=== PATIENT | male | born 1950 | race Caucasian/White ===

== ENCOUNTER → 2018-02-28 15:07 | Outpatient (CLI) | payer MEDICARE, OTHER, SELFPAY ==
--- NOTE | 2018-02-28 15:12 | DI.RAD.S_ITS ---
PROCEDURE: XR ACUTE ABDOMEN SERIES INDICATIONS: constipation/LAB TECHNIQUE: One view chest and two views of the abdomen were acquired. COMPARISON: None. FINDINGS: Surgical changes and devices: None. Chest: Lungs are clear. Heart size is normal. No pleural effusions. No pneumoperitoneum. Abdomen: Bowel gas pattern is abnormal somewhat deviated from the expected course through the lower right abdomen and upper right pelvis. No suspicious calcifications. Visualized solid organ contours appear normal. Bones and soft tissues: No suspicious bony lesions. What may be an ostomy site or hernia overlies the lateral soft tissues of the right lower abdomen. There also may be a mass deep to that area in the right lower quadrant measuring up to 15 cm craniocaudad and 10.6 cm transverse displacing bowel loops peripherally. IMPRESSION: Unusual morphology of the bowel gas pattern right lower quadrant, in a distribution that raises concern for whether a large right lower abdominal/pelvic mass could be present. There also may be an ostomy or some form of body wall hernia at the lateral border of this area. Please correlate clinically, followup by CT scanning may become necessary. Dictated by: Samson Campo M.D. on 02/28/2018 at 16:12 Approved by: Samson Campo M.D. on 02/28/2018 at 16:15
[2018-02-28 15:58] LABS: Add Manual Diff / Slide Review NO; Basophils Percent Auto 0.9 % (0-2); Eosinophils Percent Auto 1.9 % (2-4); Lymphocytes Percent Auto 20.6 % (25-40); Mean Corpuscular HGB Conc 34.3 % (30-36); Mean Corpuscular Hemoglobin 29.5 PG (26-34); Mean Corpuscular Volume 85.9 fL (80-100); Monocytes Percent Auto 8.8 % (3-14); Neutrophils Absolute Auto 3500 /uL (3000-5900); Neutrophils Percent Auto 67.8 % (50-75); Platelet Count 173 X10^3/uL (150-400); Red Blood Cell Count 4.77 X10^6/uL (4.5-5.9); Red Cell Distribution Width 13.9 % (11.6-14.8); White Blood Cell Count 5.2 X10^3/uL (4.5-11.0)
[2018-02-28 16:41] LABS: Alanine Aminotransferase 36 IU/L (21-72); Albumin 4.1 g/dL (3.5-5.0); Albumin Globulin Ratio 1.8 (1.0-2.8); Alkaline Phosphatase 51 U/L (38-126); Aspartate Aminotransferase 38 IU/L (17-59); Bilirubin Total 0.7 mg/dL (0.2-1.3); Blood Urea Nitrogen 20 mg/dL (9-20); Calcium 9.1 mg/dL (8.4-10.2); Carbon Dioxide 28 mmol/L (22-32); Chloride 101 mmol/L (98-107); Cholesterol 248 mg/dL (140-199); Estimated Glomerular Filt Rate > 60.0 mL/min (>60); Globulin 2.3 g/dL (1.7-4.1); Glucose 90 mg/dL (80-110); HDL Cholesterol 62 mg/dL (40-60); HEMOLYSIS < 15 (0-50); LDL Cholesterol Calculated 168 mg/dL (<100); Potassium 3.9 mmol/L (3.4-5.1); Sodium 140 mmol/L (137-145); Total Protein 6.4 g/dL (6.3-8.2); Triglycerides 90 mg/dL (35-150)
[2018-02-28 17:07] LABS: Thyroid Stimulating Hormone 0.91 uIU/mL (0.47-4.68)
== END ==
PROVIDERS: PCP Family Medicine; Visit Provider Internal Medicine
DX: K59.00 Constipation, unspecified (principal); E87.6 Hypokalemia; E78.00 Pure hypercholesterolemia, unspecified
CPT/HCPCS: 36415; 74022; 80053; 80061; 84443; 85025

== ENCOUNTER → 2018-03-01 16:31 | Outpatient (CLI) | payer MEDICARE, OTHER, SELFPAY ==
--- NOTE | 2018-03-01 16:35 | DI.CT.S_ITS ---
PROCEDURE: CT ABDOMEN PELVIS W CON INDICATIONS: abnormal xray TECHNIQUE: After the administration of oral and intravenous contrast, 5 mm thick sections acquired from the diaphragms to the symphysis. 5 mm thick coronal and sagittal reformats were performed. For radiation dose reduction, the following was used: automated exposure control, adjustment of mA and/or kV according to patient size. COMPARISON: [facility], , XR ACUTE ABDOMEN SERIES, 02/28/2018, 15:03. FINDINGS: Image quality: Excellent. ABDOMEN: Lung bases: Lung bases are clear. Heart size is normal. Solid organs: Liver is normal in size and enhancement. Gallbladder demonstrates multiple calculi within its lumen Biliary system is non-dilated. Pancreas enhances normally. Spleen is normal in size and enhancement. No adrenal nodules. Multiple right renal cysts are present, largest of which is exophytic protruding anteroinferiorly from the inferior pole right kidney measuring 16 cm diameter. Kidneys are otherwise normal in size and enhancement, without hydronephrosis. Peritoneum and bowel: Stomach, small bowel, and colon loops are normal in caliber and wall thickness. Multiple fluid filled loops of small bowel are present within the pelvis. No free fluid or air. Normal appendix. Nodes and vessels: No retroperitoneal or mesenteric adenopathy. Aorta and inferior vena cava are normal in caliber. Miscellaneous: No ventral hernias. PELVIS: Genitourinary: Bladder wall thickness is normal. Miscellaneous: No inguinal hernias or adenopathy. Bones: No suspicious bony lesions. No vertebral body compression fractures. IMPRESSION: 1. Multiple fluid filled loops of small bowel, possibly indicating gastroenteritis. 2. Normal appendix. 3. Large right renal cyst. Dictated by: Miya Keith M.D. on 03/01/2018 at 18:28 Approved by: Miya Keith M.D. on 03/01/2018 at 18:30
== END ==
PROVIDERS: PCP Family Medicine; Visit Provider Internal Medicine
DX: K59.00 Constipation, unspecified (principal); R93.8 Abnormal findings on diagnostic imaging of other specified body structures; N28.1 Cyst of kidney, acquired
CPT/HCPCS: 74177; Q9967

== ENCOUNTER → 2018-12-23 09:47 | Outpatient (CLI) | payer MEDICARE, OTHER, SELFPAY ==
[2018-12-23 11:17] LABS: Prostate Specific Antigen 1.59 ng/mL (0.10-4.00)
== END ==
PROVIDERS: PCP Family Medicine; Visit Provider Urology
DX: R97.20 Elevated prostate specific antigen [PSA] (principal)
CPT/HCPCS: 36415; 84153

== ENCOUNTER → 2019-01-20 07:32 | Outpatient (CLI) | payer MEDICARE, OTHER, SELFPAY ==
[2019-01-20 08:28] LABS: Cholesterol 283 mg/dL (140-199); Creatinine Urine Random 91.5 mg/dL; Gamma Glutamyl Transpeptidase 43 U/L (15-73); HDL Cholesterol 50 mg/dL (40-60); LDL Cholesterol Calculated 210 mg/dL (<100); Triglycerides 117 mg/dL (35-150)
[2019-01-20 08:32] LABS: High Sensitivity CRP - Cardiac 0.5 mg/L (1.0-3.0)
[2019-01-20 08:34] LABS: Microalbumi Creatinin Ratio Ur 113.6 ug/mg CR (<30); Microalbumin Urine Random 10.4 mg/dL (0-1.6)
[2019-01-20 08:44] LABS: Vitamin D 25 Hydroxy (D3) 57.5 ng/mL (30.0-100.0)
[2019-01-20 10:47] LABS: Thyroid Stimulating Hormone 3.36 uIU/mL (0.47-4.68)
[2019-01-26 16:58] LABS: Triiodothyronine T3 Reverse 28 ng/dL (8-25)
== END ==
PROVIDERS: PCP Family Medicine; Visit Provider Family Medicine
DX: E03.9 Hypothyroidism, unspecified (principal); I10 Essential (primary) hypertension; E87.6 Hypokalemia; Z12.5 Encounter for screening for malignant neoplasm of prostate; Z13.220 Encounter for screening for lipoid disorders
CPT/HCPCS: 36415; 80061; 82043; 82306; 82570; 82977; 84443; 84481; 84482; 86140

== ENCOUNTER → 2019-06-25 14:58 | Outpatient (CLI) | payer MEDICARE, OTHER, SELFPAY ==
--- NOTE | 2019-06-25 15:01 | DI.RAD.S_ITS ---
PROCEDURE: XR ANKLE LT MIN 3V INDICATIONS: ankle and knee pain TECHNIQUE: 3 views of the ankle were acquired. COMPARISON: None. FINDINGS: Bones: No acute fractures or dislocations. Moderate degenerative changes of the left tibiotalar joint. Mild dorsal left midfoot degenerative change. Ankle mortise is normally aligned. No suspicious bony lesions. Soft tissues: No tibiotalar joint effusion. Achilles tendon appears normal. IMPRESSION: Left ankle without acute osseous abnormalities. Moderate tibiotalar osteoarthrosis. Mild dorsal midfoot degenerative change. Dictated by: Zach De Santiago M.D. on 06/25/2019 at 16:05 Approved by: Zach De Santiago M.D. on 06/25/2019 at 16:07
--- NOTE | 2019-06-25 15:01 | DI.RAD.S_ITS ---
PROCEDURE: XR KNEE LT 3V INDICATIONS: ankle and knee pain TECHNIQUE: 3 views of the knee were acquired. COMPARISON: None. FINDINGS: Bones: No fractures or dislocations. Mild tricompartmental degenerative changes of the left knee. No suspicious bony lesions. Soft tissues: No joint effusion. No suspicious soft tissue calcifications. IMPRESSION: Left knee without acute radiographic abnormalities. Mild tricompartmental osteoarthrosis of the left knee. Dictated by: Zach De Santiago M.D. on 06/25/2019 at 16:07 Approved by: Zach De Santiago M.D. on 06/25/2019 at 16:08
== END ==
PROVIDERS: PCP Family Medicine; Visit Provider Family Medicine
DX: M25.572 Pain in left ankle and joints of left foot (principal); M25.562 Pain in left knee; M19.072 Primary osteoarthritis, left ankle and foot; M17.12 Unilateral primary osteoarthritis, left knee
CPT/HCPCS: 73562; 73610

== ENCOUNTER → 2019-08-27 13:01 | Outpatient (CLI) | payer MEDICARE, OTHER, SELFPAY ==
--- NOTE | 2019-08-27 13:06 | DI.RAD.S_ITS ---
PROCEDURE: XR FINGER LT MIN 2V INDICATIONS: finger nodule TECHNIQUE: AP hand, 2 views of the third finger(s) acquired. COMPARISON: None. FINDINGS: Bones: No fractures or dislocations. No suspicious bony lesions. Soft tissues: No suspicious soft tissue calcifications. IMPRESSION: Menisci mild to moderate degree of distal interphalangeal degenerative osteoarthritic change including dorsal osteophytic spurring from the base of the third distal phalanx. This is the presumed source of reported soft tissue nodule over the dorsum of the distal interphalangeal joint third digit. Dictated by: Samson Campo M.D. on 08/27/2019 at 13:28 Approved by: Samson Campo M.D. on 08/27/2019 at 13:29
== END ==
PROVIDERS: PCP Family Medicine; Visit Provider Family Medicine
DX: R22.32 Localized swelling, mass and lump, left upper limb (principal)
CPT/HCPCS: 73140

== ENCOUNTER → 2019-12-10 13:39 | Outpatient (CLI) | payer MEDICARE, OTHER, SELFPAY ==
--- NOTE | 2019-12-10 | DI.US.S_ITS ---
PROCEDURE: US ABDOMEN COMPLETE INDICATIONS: CHOLESTEROLOSIS OF GB, ELEVATED LFT'S TECHNIQUE: Real-time scanning was performed of the abdominal and retroperitoneal organs, with image documentation. COMPARISON: [facility], CT, CT ABDOMEN PELVIS W CON, 03/01/2018, 17:25. FINDINGS: Liver: Liver is normal in size and homogeneous in echotexture. Gallbladder: Multiple gallbladder polyps, largest measuring 1.3 cm. Biliary ducts: Intrahepatic bile ducts are non-dilated. Extrahepatic bile duct caliber measures 7.7 mm. Normal is 6-7 mm or less in diameter, or 10 mm or less post-cholecystectomy. Pancreas: Not well-visualized. Spleen: Spleen is normal in size and homogeneous in echotexture. Kidneys: Kidneys are normal in size and echotexture. Right kidney measures 12.6 cm long; left kidney measures 11.2 cm long. No hydronephrosis or nephrolithiasis. No solid masses. Multiple bilateral renal cysts, largest of which is on the right measuring up to 13.1 cm. Aorta: Mild aneurysmal dilatation the proximal aorta measured 3.2 cm but Iliacs: Proximal common iliac arteries are normal in caliber at less than 2.5 cm. IVC: Intrahepatic inferior vena cava is patent. Miscellaneous: No free abdominal fluid. IMPRESSION: 1. Multiple gallbladder polyps the largest measuring up to 1.3 cm. Surgical consultation is recommended. 2. Mild aneurysmal dilatation the proximal aorta measuring up to 3.2 cm which appears similar to prior CT scan. 3 year followup ultrasound recommended. 3. Multiple renal cysts, largest measuring up to 13.1 cm on the right. Dictated by: Yao Arizmendi [facility] Interpreted: Denis Mata MD on 12/10/2019 at 16:43 Approved by: Denis Mata M.D. on 12/10/2019 at 17:01
== END ==
PROVIDERS: PCP Family Medicine; Referring Provider Physician Assistant; Visit Provider Physician Assistant
DX: K82.4 Cholesterolosis of gallbladder (principal); I71.4 Abdominal aortic aneurysm, without rupture; N28.1 Cyst of kidney, acquired; R79.89 Other specified abnormal findings of blood chemistry
CPT/HCPCS: 76700

== ENCOUNTER → 2020-04-18 09:07 | Outpatient (CLI) | payer MEDICARE, OTHER, SELFPAY ==
[2020-04-19 14:01] LABS: COVID19 Sendout Not Detected (Not Detect)
== END ==
PROVIDERS: PCP Family Medicine; Visit Provider Physician Assistant
DX: Z01.812 Encounter for preprocedural laboratory examination (principal)
CPT/HCPCS: 87635

== ENCOUNTER → 2020-07-07 09:10 | Outpatient (CLI) | payer MEDICARE, OTHER, SELFPAY ==
[2020-07-07 14:57] LABS: Clostridium Difficile Tox PCR Negative for C. diff
== END ==
PROVIDERS: PCP Family Medicine; Referring Provider Family Medicine; Visit Provider Family Medicine
DX: R19.7 Diarrhea, unspecified (principal)
CPT/HCPCS: 87045; 87177; 87493; 87899

== ENCOUNTER → 2020-08-23 10:13 | Outpatient (CLI) | payer MEDICARE, OTHER, SELFPAY ==
[2020-08-23 11:54] LABS: COVID19 -Nasal RAPID Negative (Negative)
== END ==
PROVIDERS: PCP Family Medicine; Visit Provider Physician Assistant
DX: Z11.59 Encounter for screening for other viral diseases (principal)
CPT/HCPCS: 87635

== ENCOUNTER → 2020-09-20 13:27 | Outpatient (CLI) | payer MEDICARE, OTHER, SELFPAY ==
[2020-09-20 15:28] LABS: COVID19 -Nasal RAPID Negative (Negative)
== END ==
PROVIDERS: PCP Family Medicine; Visit Provider Nurse Practitioner
DX: Z20.828 Contact with and (suspected) exposure to other viral communicable diseases (principal)
CPT/HCPCS: 87635; C9803

== ENCOUNTER → 2020-09-21 14:09 | Outpatient (CLI) | payer MEDICARE, OTHER, SELFPAY ==
[2020-10-02 18:36] LABS: Pancreatic Elastase, Fecal 413 (>200)
== END ==
PROVIDERS: PCP Family Medicine; Referring Provider Physician Assistant; Visit Provider Physician Assistant
DX: K86.1 Other chronic pancreatitis (principal)
CPT/HCPCS: 82656

== ENCOUNTER → 2020-11-11 07:02 | Outpatient (CLI) | payer MEDICARE, OTHER, SELFPAY ==
[2020-11-11 08:26] LABS: Add Manual Diff / Slide Review NO; Basophils Absolute Auto 0 /uL (0-100); Basophils Percent Auto 1.1 % (0-2); Eosinophils Absolute Auto 200 /uL (0-450); Eosinophils Percent Auto 4.3 % (2-4); Hematocrit 41.7 % (41-53); Hemoglobin 13.6 g/dL (13.5-17.5); Lymphocytes Absolute Auto 900 /uL (1100-4500); Lymphocytes Percent Auto 21.4 % (25-40); Mean Corpuscular HGB Conc 32.6 % (30-36); Mean Corpuscular Hemoglobin 28.5 PG (26-34); Mean Corpuscular Volume 87.2 fL (80-100); Monocytes Absolute Auto 400 /uL (0-900); Monocytes Percent Auto 8.6 % (3-14); Neutrophils Absolute Auto 2700 /uL (1500-7000); Neutrophils Percent Auto 64.6 % (50-75); Platelet Count 179 X10^3/uL (150-400); Red Blood Cell Count 4.78 X10^6/uL (4.5-5.9); Red Cell Distribution Width 13.2 % (11.6-14.8); White Blood Cell Count 4.2 X10^3/uL (4.5-11.0)
[2020-11-11 08:56] LABS: Alanine Aminotransferase 22 IU/L (<50); Albumin 4.1 g/dL (3.5-5.0); Albumin Globulin Ratio 1.7 (1.0-2.8); Alkaline Phosphatase 64 U/L (38-126); Aspartate Aminotransferase 33 IU/L (17-59); BUN Creatinine Ratio 18.9 (6-22); Bilirubin Total 0.5 mg/dL (0.2-1.3); Blood Urea Nitrogen 17 mg/dL (9-20); Carbon Dioxide 33 mmol/L (22-32); Chloride 103 mmol/L (98-107); Estimated Glomerular Filt Rate > 60.0 mL/min (>60); Globulin 2.4 g/dL (1.7-4.1); Glucose 91 mg/dL (80-110); HEMOLYSIS < 15 (0-50); Potassium 3.1 mmol/L (3.4-5.1); Sodium 139 mmol/L (137-145); Total Protein 6.5 g/dL (6.3-8.2); Uric Acid 6.4 mg/dL (3.5-8.5)
[2020-11-11 09:00] LABS: High Sensitivity CRP - Cardiac < 0.3 mg/L (1.0-3.0)
[2020-11-11 09:15] LABS: Free T3, Triiodothyronine Free 5.75 pg/mL (2.77-5.27); Free T4, Direct Thyroxine 1.41 ng/dL (0.78-2.19)
[2020-11-11 09:28] LABS: Thyroid Stimulating Hormone 2.19 uIU/mL (0.47-4.68)
[2020-11-12 09:07] LABS: Thyroid Peroxidase Antibodies <9 IU/mL (0-34); Triiodothyronine T3 Total 113 ng/dL (71-180)
[2020-11-12 18:11] LABS: Anti Thyroglobulin Antibody <1.0 IU/mL (0.0-0.9)
[2020-11-19 03:25] LABS: Triiodothyronine T3 Reverse 16.8 ng/dL (9.2-24.1)
[2020-11-22 15:28] LABS: LDL Particle 1789
[2020-11-22 15:29] LABS: LDL-Cholsterol 150
[2020-11-22 15:30] LABS: Cholesterol, Total 225; HDL-Cholesterol 59; Triglycerides 89
[2020-11-22 15:31] LABS: HDL-Particle (Total) 32.1; LDL Size 20.9; Small LDL- Particle 766
== END ==
PROVIDERS: PCP Family Medicine; Referring Provider Family Medicine; Visit Provider Family Medicine
DX: R14.0 Abdominal distension (gaseous) (principal); E78.5 Hyperlipidemia, unspecified; K21.00 Gastro-esophageal reflux disease with esophagitis, without bleeding; E03.9 Hypothyroidism, unspecified; N40.1 Benign prostatic hyperplasia with lower urinary tract symptoms; M25.511 Pain in right shoulder; K64.9 Unspecified hemorrhoids; K22.70 Barrett's esophagus without dysplasia; I10 Essential (primary) hypertension; M41.24 Other idiopathic scoliosis, thoracic region; G47.9 Sleep disorder, unspecified; M10.9 Gout, unspecified
CPT/HCPCS: 36415; 80053; 80061; 83704; 84439; 84443; 84480; 84481; 84482; 84550; 85025; 86140; 86376; 86800

== ENCOUNTER → 2020-12-13 07:24 | Outpatient (CLI) | payer MEDICARE, OTHER, SELFPAY | PROVIDERS: PCP Family Medicine; Referring Provider Family Medicine; Visit Provider Family Medicine | DX: E63.9 Nutritional deficiency, unspecified (principal); E78.5 Hyperlipidemia, unspecified; K21.00 Gastro-esophageal reflux disease with esophagitis, without bleeding; E03.9 Hypothyroidism, unspecified | CPT/HCPCS: 36415; 99001 ==

== ENCOUNTER 2021-07-10 09:49 | Emergency (ER) | payer MEDICARE, OTHER, SELFPAY ==
[2021-07-10] VITALS (43 sets, daily range): BP systolic 137–233; BP diastolic 71–106; PULSE 54–80; RESP 11–29; TEMP 36.2; O2SAT 82–100; BMI 24.3
--- NOTE | 2021-07-10 09:53 | DI.RAD.S_ITS ---
PROCEDURE: XR CHEST 1V INDICATIONS: chest pain TECHNIQUE: One view of the chest was acquired. COMPARISON: [facility], CT, CT CHEST WITHOUT CONTRAST, 04/15/2021, 13:50. FINDINGS: Surgical changes and devices: None. Lungs and pleura: An incomplete inspiratory result is noted, causing a crowded appearance to the lung markings. No focal infiltrates are seen. No pneumothorax or significant pleural effusions are seen. Mediastinum: The cardiac contours are within normal limits. The aorta demonstrates calcification and tortuosity. Bones and chest wall: No suspicious bony lesions. Age-appropriate bony degenerative changes are seen. Overlying soft tissues appear unremarkable. IMPRESSION: Portable chest within normal limits. Dictated by: Roland Evans M.D. on 07/10/2021 at 9:08 Approved by: Roland Evans M.D. on 07/10/2021 at 9:09
--- NOTE | 2021-07-10 10:16 | ED_ITS ---
HPI - Chest Pain General Chief Complaint: Chest Pain Stated Complaint: High bp, tightness in chest Time Seen by Provider: 07/10/21 10:09 Source: patient Mode of arrival: Ambulatory Limitations: no limitations History of Present Illness HPI narrative: Patient is a 71-year-old male here for evaluation of chest discomfort. He states that it started last evening. He did eat some food last evening that he thought potentially caused him to have some reflux. He took some antacids this did not help his symptoms. He states that is not worse with palpation or movement. Describes it as a dull discomfort. No fevers. Related Data Home Medications Medication Instructions Recorded Confirmed ascorbate calcium (vitamin C) 500 500 mg PO BID 07/07/20 07/10/21 mg tablet cholecalciferol (vitamin D3) 250 250 mcg PO QAM 07/07/20 07/10/21 mcg (10,000 unit) capsule glucosamine 750 mg-MSM 60 1 tab PO BID 07/07/20 07/10/21 mg-chondroit 150 mg-hyaluron ac 1 mg tablet amlodipine 10 mg tablet 10 mg PO QAM 07/10/21 07/10/21 dutasteride 0.5 mg capsule 0.5 mg PO QAM 07/10/21 07/10/21 esomeprazole magnesium 20 mg 20 mg PO QAM 07/10/21 07/10/21 capsule,delayed release losartan 50 mg tablet 50 mg PO QAM 07/10/21 07/10/21 potassium chloride 10 mEq 10 meq PO QAM 07/10/21 07/10/21 tablet,extended release tamsulosin 0.4 mg capsule (Flomax) 0.4 mg PO QAM 07/10/21 07/10/21 Previous Rx's Medication Instructions Recorded indomethacin 50 mg capsule 50 mg PO TIDP PRN #30 cap 10/26/20 Allergies Allergy/AdvReac Type Severity Reaction Status Date / Time latex Allergy Rash Verified 07/10/21 10:01 Review of Systems Constitutional Constitutional: Denies headache(s) ENT Ears, Nose, Mouth, and Throat: Denies headache(s) Cardiovascular Cardiovascular: Reports as per HPI and Reports system reviewed and no additional complaints, except as documented Respiratory Respiratory: Reports as per HPI and Reports system reviewed and no additional complaints, except as documented Gastrointestinal Gastrointestinal: Reports as per HPI and Reports system reviewed and no additional complaints, except as documented Musculoskeletal Musculoskeletal: Reports system reviewed and no additional complaints, except as documented Integumentary/Breasts Skin/Breast: Reports system reviewed and no additional complaints, except as documented Neurologic Neurologic: Denies headache(s) Hematologic/Lymphatic On Anticoagulants: No Patient History Medical History Abdominal bloating Actinic keratoses Adverse reaction to antibiotic Aortic aneurysm, abdominal Aortic regurgitation (1994) Benign prostatic hyperplasia BRBPR (bright red blood per rectum) Cardiac arrhythmia Cerumen impaction Cervical somatic dysfunction Chronic pain of left ankle Chronic right shoulder pain Chronic thoracic back pain Constipation Cranial somatic dysfunction Elevated PSA Fecal incontinence Frequent loose stools Gallbladder polyp Gluten enteropathy Gout Hiatal hernia Hypothyroidism Low testosterone Lumbar region somatic dysfunction Onychomycosis Other stressful life events affecting family and household Pancreatitis Pelvic somatic dysfunction Renal cyst Sacral region somatic dysfunction Scoliosis Scoliosis of thoracic spine Segmental and somatic dysfunction of abdomen and other regions Segmental and somatic dysfunction of rib cage Segmental and somatic dysfunction of upper extremity Shoulder pain Skin rash Sleep disorder Somatic dysfunction of lower extremity Stiff neck Stress due to illness of family member Thoracic region somatic dysfunction Surgical History Anesthesia Ankle fracture (1978) History of eyelid surgery (2016) History of pancreatic surgery (1994) Family History Brother Age: 65 No problems noted. Father Heart disease Mental health problem Smoker Alcoholic Brother No problems noted. Grandfather Cancer Grandmother No problems noted. Mother No problems noted. Grandfather Fall from roof Grandmother Cancer Sister Overweight Sister No problems noted. Social History marital status: number of children: 0 household members: none lives independently: Yes caregiver/support person: No housing: house Smoking Status: Never smoker second hand exposure: No alcohol intake: never substance use type: does not use Smoking Status: Never smoker alcohol intake frequency: 0-2 drinks per day Substance Use Type: does not use Exam Initial Vital Signs Initial Vital Signs: Vital Signs Temperature 97.1 F L 07/10/21 09:50 Pulse Rate 66 07/10/21 09:50 Respiratory Rate 18 07/10/21 09:50 Blood Pressure 190/106 H 07/10/21 09:50 Pulse Oximetry 100 07/10/21 09:50 Const General: cooperative and healthy appearing [facility] Head: normal to inspection and normocephalic Chest Chest: No crepitus and No tenderness Resp Effort & Inspection: normal respiratory effort Auscultation: clear to auscultation bilaterally Cardio Rate: regular rate Rhythm: regular rhythm GI Inspection: normal to inspection Neuro General: patient alert, patient awake, patient oriented x3 and moves all extremities Extrem General: normal to inspection and capillary refill normal Course Orders Ordered: ED Orders 07/10/21 09:53 XR chest 1V Stat EKG-12 Lead Stat 07/10/21 10:15 Complete Blood Count AUTO DIFF Stat Comprehensive Metabolic Panel Stat Lipase Stat Partial Thromboplastin Time Stat Prothrombin Time INR Stat Troponin & CK Cardiac Panel Stat 07/10/21 11:11 COVID19 - ADMIT ([employer] swab/PCR) Stat 07/10/21 13:25 Troponin I Stat 07/10/21 17:01 PTT [Partial Thromboplastin Time] Q6H Troponin I Stat 07/11/21 00:45 PTT [Partial Thromboplastin Time] Q6H 07/11/21 06:45 PTT [Partial Thromboplastin Time] Q6H 07/11/21 12:45 PTT [Partial Thromboplastin Time] Q6H Acetaminophen (Acetaminophen 325 Mg Tablet) 650 mg PO Q6HR PRN PRN Reason: Headache Stop: 07/12/21 00:00 Heparin Sodium/Dextrose (Heparin Drip) 25,000 unit in 500 mls @ 17.418 mls/hr IV CONT RUPERT; Protocol Last Admin: 07/10/21 11:19 Dose: 12 units/kg/hr, 17.418 mls/hr Documented by: VAL Nitroglycerin (Nitroglycerin) 50 mg in 250 mls @ 1.5 mls/hr IV TITRATE RUPERT; Protocol Last Titration: 07/10/21 15:30 Dose: 7.5 mcg/min, 2.25 mls/hr Documented by: Admin: 07/10/21 12:45 Dose: 5 mcg/min, 1.5 mls/hr Documented by: BLADIMIR Discontinued Medications Aspirin (Aspirin 81 Mg Chew Tab) 324 mg PO NOW ONE Stop: 07/10/21 11:00 Last Admin: 07/10/21 11:04 Dose: 324 mg Documented by: VAL Heparin Sodium (Porcine) (Heparin 5,000 Unit/Ml Vial) 4,000 unit IV NOW ONE Stop: 07/10/21 11:03 Last Admin: 07/10/21 11:19 Dose: 4,000 unit Documented by: VAL Metoprolol Tartrate (Metoprolol Tartrate 5 Mg/5 Ml Inj) 5 mg IV NOW ONE Stop: 07/10/21 12:21 Last Admin: 07/10/21 12:34 Dose: 5 mg Documented by: BLADIMIR Nitroglycerin (Nitroglycerin 0.4 Mg Sl Tab) 0.4 mg SL [id number] PRN PRN Reason: Chest Pain Last Admin: 07/10/21 11:34 Dose: 0.4 mg Documented by: Admin: 07/10/21 11:18 Dose: 0.4 mg Documented by: Admin: 07/10/21 11:05 Dose: 0.4 mg Documented by: VAL Vital Signs Vital signs: Vital Signs - 8 hr 07/10/21 10:15 07/10/21 10:30 07/10/21 10:45 Pulse Rate 65 80 62 Respiratory Rate 22 22 15 Blood Pressure 161/94 H 233/96 H Pulse Oximetry 99 97 07/10/21 10:46 07/10/21 11:00 07/10/21 11:05 Pulse Rate 63 61 68 Respiratory Rate 11 L 22 22 Blood Pressure 152/87 H 156/98 H 151/94 H Pulse Oximetry 07/10/21 11:15 07/10/21 11:18 07/10/21 11:30 Pulse Rate 70 69 72 Respiratory Rate 11 L 18 Blood Pressure 140/86 140/86 148/88 H Pulse Oximetry 07/10/21 11:34 07/10/21 11:45 07/10/21 12:00 Pulse Rate 69 75 69 Respiratory Rate 20 12 Blood Pressure 148/88 H 144/87 H 152/87 H Pulse Oximetry 07/10/21 12:15 07/10/21 12:30 07/10/21 12:42 Pulse Rate 63 63 54 L Respiratory Rate 23 17 17 Blood Pressure 158/91 H 148/87 H 157/89 H Pulse Oximetry 07/10/21 12:45 07/10/21 13:00 07/10/21 13:15 Pulse Rate 55 L 59 L 56 L Respiratory Rate 18 19 15 Blood Pressure 147/84 H 163/92 H 146/81 H Pulse Oximetry 07/10/21 13:30 07/10/21 13:45 07/10/21 14:00 Pulse Rate 56 L 57 L 58 L Respiratory Rate 11 L 16 17 Blood Pressure 147/81 H 137/81 145/82 H Pulse Oximetry 07/10/21 14:15 07/10/21 14:30 07/10/21 14:45 Pulse Rate 55 L 57 L 57 L Respiratory Rate 19 16 15 Blood Pressure 151/77 H 149/81 H 148/86 H Pulse Oximetry 07/10/21 15:00 07/10/21 15:15 07/10/21 15:30 Pulse Rate 58 L 60 Respiratory Rate 17 13 29 H Blood Pressure 144/77 H 153/88 H 148/88 H Pulse Oximetry 07/10/21 15:45 07/10/21 16:00 07/10/21 16:15 Pulse Rate 61 61 62 Respiratory Rate 20 23 19 Blood Pressure 139/71 141/73 H 140/75 Pulse Oximetry 07/10/21 16:30 07/10/21 16:45 07/10/21 17:00 Pulse Rate 63 62 61 Respiratory Rate 22 19 24 Blood Pressure 142/79 H 149/73 H 144/78 H Pulse Oximetry 07/10/21 17:15 07/10/21 17:30 Pulse Rate 64 66 Respiratory Rate 19 17 Blood Pressure 147/78 H 148/90 H Pulse Oximetry MDM - Chest Pain Lab Data Attestation: I reviewed the patient's lab results. Result diagrams: 07/10/21 10:15 07/10/21 10:15 Labs: Lab Results 07/10/21 07/10/21 07/10/21 Range/Units 10:15 10:15 10:15 WBC 6.3 (4.5-11.0) X10^3/uL RBC 5.08 (4.5-5.9) X10^6/uL Hgb 14.7 (13.5-17.5) g/dL Hct 44.1 (41-53) % MCV 86.9 (80-100) fL MCH 28.9 (26-34) PG MCHC 33.2 (30-36) % RDW 13.8 (11.6-14.8) % Plt Count 166 (150-400) X10^3/uL Neut % (Auto) 73.8 (50-75) % Lymph % (Auto) 15.3 L (25-40) % Otoe % (Auto) 8.6 (3-14) % Eos % (Auto) 1.5 L (2-4) % Baso % (Auto) 0.8 (0-2) % Neut # (Auto) 4700 (4010-1668) /uL Lymph # (Auto) 1000 L (4672-5223) /uL [place] # (Auto) 500 (0-900) /uL Eos # (Auto) 100 (0-450) /uL Baso # (Auto) 100 (0-100) /uL PT 10.8 (10.1-12.7) SECONDS INR 1.0 (0.9-1.3) APTT 29 (26.4-36.2) SECONDS Sodium 138 (137-145) mmol/L Potassium 3.7 (3.4-5.1) mmol/L Chloride 99 (98-107) mmol/L Carbon Dioxide 32 (22-32) mmol/L BUN 17 (9-20) mg/dL Creatinine 0.92 (0.66-1.25) mg/dL Estimated GFR > 60.0 (>60) mL/min BUN/Creatinine Ratio 18.5 (6-22) Glucose 100 (80-110) mg/dL Calcium 9.7 (8.4-10.2) mg/dL Total Bilirubin 0.6 (0.2-1.3) mg/dL AST 58 (17-59) IU/L ALT 26 (<50) IU/L Alkaline Phosphatase 59 (38-126) U/L Total Creatine Kinase 238 H (55-170) U/L CK-MB (CK-2) 14.30 H (<2.37) ng/mL CK-MB (CK-2) Rel Index 6.0 H (1.5-5.0) % Troponin I 1.780 H* (0.01-0.034) ng/mL Total Protein 6.7 (6.3-8.2) g/dL Albumin 4.3 (3.5-5.0) g/dL Globulin 2.4 (1.7-4.1) g/dL Albumin/Globulin Ratio 1.8 (1.0-2.8) Lipase 29 (23-300) U/L SARS-CoV-2 (PCR) (Negative) 07/10/21 07/10/21 07/10/21 Range/Units 11:11 13:25 17:01 WBC (4.5-11.0) X10^3/uL RBC (4.5-5.9) X10^6/uL Hgb (13.5-17.5) g/dL Hct (41-53) % MCV (80-100) fL MCH (26-34) PG MCHC (30-36) % RDW (11.6-14.8) % Plt Count (150-400) X10^3/uL Neut % (Auto) (50-75) % Lymph % (Auto) (25-40) % Otoe % (Auto) (3-14) % Eos % (Auto) (2-4) % Baso % (Auto) (0-2) % Neut # (Auto) (7895-9768) /uL Lymph # (Auto) (2792-1182) /uL O[place]e # (Auto) (0-900) /uL Eos # (Auto) (0-450) /uL Baso # (Auto) (0-100) /uL PT (10.1-12.7) SECONDS INR (0.9-1.3) APTT (26.4-36.2) SECONDS Sodium (137-145) mmol/L Potassium (3.4-5.1) mmol/L Chloride (98-107) mmol/L Carbon Dioxide (22-32) mmol/L BUN (9-20) mg/dL Creatinine (0.66-1.25) mg/dL Estimated GFR (>60) mL/min BUN/Creatinine Ratio (6-22) Glucose (80-110) mg/dL Calcium (8.4-10.2) mg/dL Total Bilirubin (0.2-1.3) mg/dL AST (17-59) IU/L ALT (<50) IU/L Alkaline Phosphatase (38-126) U/L Total Creatine Kinase (55-170) U/L CK-MB (CK-2) (<2.37) ng/mL CK-MB (CK-2) Rel Index (1.5-5.0) % Troponin I 3.000 H* 4.630 H* (0.01-0.034) ng/mL Total Protein (6.3-8.2) g/dL Albumin (3.5-5.0) g/dL Globulin (1.7-4.1) g/dL Albumin/Globulin Ratio (1.0-2.8) Lipase (23-300) U/L SARS-CoV-2 (PCR) Negative (Negative) Imaging Data Chest x-ray: Radiologist's Impression: [address] [id number] ReportSigned Patient: Segun Hernandez EMR#: [id number]: 8Acct:[id number]/Sex: 71 / MDate of Service: 07/10/21Loc: EDAccession Number: [id number] Procedure: XR chest 1V Ordering Provider: Shahriar Ortega D.O. PROCEDURE: XR CHEST 1V INDICATIONS: chest pain TECHNIQUE: One view of the chest was acquired. COMPARISON: [facility], CT, CT CHEST WITHOUT CONTRAST, 04/15/2021, 13:50. FINDINGS: Surgical changes and devices: None. Lungs and pleura: An incomplete inspiratory result is noted, causing a crowded appearance to the lung markings. No focal infiltrates are seen. No pneumothorax or significant pleural effusions are seen. Mediastinum: The cardiac contours are within normal limits. The aorta demonstrates calcification and tortuosity. Bones and chest wall: No suspicious bony lesions. Age-appropriate bony degenerative changes are seen. Overlying soft tissues appear unremarkable. IMPRESSION: Portable chest within normal limits. Dictated by: Roland Evans M.D. on 07/10/2021 at 9:08 Approved by: Roland Evans M.D. on 07/10/2021 at 9:09 ECG Data Attestation: I personally reviewed and interpreted this ECG as follows: Interpretation: Sinus rhythm Ventricular rate is 69 Normal axis Normal QRS Normal QTC First-degree AV block with a MO interval [address] T wave changes MDM Narrative Medical decision making narrative: Patient has had symptoms since last evening. Nonspecific changes on the EKG. Initial troponin elevated. Was given aspirin. Metoprolol. Chest pain improved with oral nitro would not completely resolved. He was started on a nitro drip and has been chest pain-free for several hours. Troponins are continuing to elevate. Rest of his labs unremarkable. COVID is negative. Attempted to find transfer location for several hours without any success. I then discussed the case with Dr. Rmaan internal medicine at [facility] who accepts the patient in transfer. I also discussed the case with Cardiology. They agreed with treatments provided thus far. Discussed the need for transfer with the patient. He is stable for transport. He expressed understanding and agreement. Critical Care Time Critical Care Time Critical Care Time: Yes Total Critical Care Time: 45 Attestation: The high probability of a clinically significant, sudden or life threatening deterioration of the cardiovascular system(s) required my full and direct attention, intervention and personal management. The aggregate critical care time was [45] minutes. This time is in addition to time spent performing reported procedures but includes the following: [x] Data Review and interpretation [x] Patient assessment and monitoring of vital signs [x] Documentation [x] Medication orders and management Discharge Plan Departure Patient Disposition: [facility] Clinical Impression: Non-ST elevation OR (NSTEMI) Prescriptions: No Action indomethacin 50 mg capsule 50 mg PO TIDP PRN (Reason: gout) Qty: 30 RF: 1 cholecalciferol (vitamin D3) 250 mcg (10,000 unit) capsule 250 mcg PO QAM RF: 0 ascorbate calcium (vitamin C) 500 mg tablet 500 mg PO BID RF: 0 [id number]-hyaluron ac [id number] mg tablet 1 tab PO BID RF: 0 esomeprazole magnesium 20 mg capsule,delayed release(DR/EC) 20 mg PO QAM RF: 0 dutasteride 0.5 mg capsule 0.5 mg PO QAM RF: 0 losartan 50 mg tablet 50 mg PO QAM RF: 0 potassium chloride 10 mEq tablet extended release 10 meq PO QAM RF: 0 amlodipine 10 mg tablet 10 mg PO QAM RF: 0 tamsulosin [Flomax] 0.4 mg capsule 0.4 mg PO QAM RF: 0 Referrals: Irwin Amador DO [Primary Care Provider] -
[2021-07-10 10:21] LABS: Add Manual Diff / Slide Review NO; Basophils Absolute Auto 100 /uL (0-100); Basophils Percent Auto 0.8 % (0-2); Eosinophils Absolute Auto 100 /uL (0-450); Eosinophils Percent Auto 1.5 % (2-4); Hematocrit 44.1 % (41-53); Hemoglobin 14.7 g/dL (13.5-17.5); Lymphocytes Absolute Auto 1000 /uL (1100-4500); Lymphocytes Percent Auto 15.3 % (25-40); Mean Corpuscular HGB Conc 33.2 % (30-36); Mean Corpuscular Hemoglobin 28.9 PG (26-34); Mean Corpuscular Volume 86.9 fL (80-100); Monocytes Absolute Auto 500 /uL (0-900); Monocytes Percent Auto 8.6 % (3-14); Neutrophils Absolute Auto 4700 /uL (1500-7000); Neutrophils Percent Auto 73.8 % (50-75); Platelet Count 166 X10^3/uL (150-400); Red Blood Cell Count 5.08 X10^6/uL (4.5-5.9); Red Cell Distribution Width 13.8 % (11.6-14.8); White Blood Cell Count 6.3 X10^3/uL (4.5-11.0)
[2021-07-10 10:38] LABS: Alanine Aminotransferase 26 IU/L (<50); Albumin 4.3 g/dL (3.5-5.0); Albumin Globulin Ratio 1.8 (1.0-2.8); Alkaline Phosphatase 59 U/L (38-126); Aspartate Aminotransferase 58 IU/L (17-59); BUN Creatinine Ratio 18.5 (6-22); Bilirubin Total 0.6 mg/dL (0.2-1.3); Blood Urea Nitrogen 17 mg/dL (9-20); Calcium 9.7 mg/dL (8.4-10.2); Carbon Dioxide 32 mmol/L (22-32); Chloride 99 mmol/L (98-107); Creatine Kinase 238 U/L (55-170); Estimated Glomerular Filt Rate > 60.0 mL/min (>60); Globulin 2.4 g/dL (1.7-4.1); Glucose 100 mg/dL (80-110); HEMOLYSIS < 15 (0-50); Lipase 29 U/L (23-300); Potassium 3.7 mmol/L (3.4-5.1); Sodium 138 mmol/L (137-145); Total Protein 6.7 g/dL (6.3-8.2)
[2021-07-10] MEDS: ASPIRIN 81 MG CHEW TAB 324 MG PO (11:04)
[2021-07-10] MEDS: NITROGLYCERIN 0.4 MG SL TAB SL ×3 (11:05→11:34)
[2021-07-10] MEDS: HEPARIN 5,000 UNIT/ML VIAL 4000 UNIT IV (11:19)
[2021-07-10] MEDS: HEPARIN DRIP 25,000 UNIT/500 ML IV.SOLN 17.418 UNIT IV (11:19)
[2021-07-10 11:28] LABS: Prothrombin Time 10.8 SECONDS (10.1-12.7)
[2021-07-10 11:30] LABS: PTT Partial Thromboplastin Tim 29 SECONDS (26.4-36.2)
[2021-07-10 12:21] LABS: COVID19 - ADMIT (NP swab/PCR) Negative (Negative)
[2021-07-10] MEDS: METOPROLOL TARTRATE 5 MG/5 ML INJ IV (12:34)
[2021-07-10] MEDS: NITROGLYCERIN 50 MG/250 ML INFUS..BTL IV (12:45)
--- NOTE | 2021-07-10 18:24 | PC.NURSE ---
Provider asked that I initiate calls to attempt to transfer this patient at 11:10am. Called [facility] and talked to supervisor feed house Tegan at 11:15. Placed the patient on waitlist and pushed imaging. Placed follow up call for placement at 16:37 to check for update. No bed available at last report. Called back at 18:35 and took patient off waiting list. Called [facility] talked to [facility] [address] at 11:24. Placed the patient on waitlist and pushed imaging. Placed follow up call for placement at 16:40 to check for update. Received call at 17:45 stating bed was available for patient that he was accepted by Dr. Raman and given a room in the D wing 720 by Ele at the transfer center. Called [facility] at 11:38am and talked to Arielle at the transfer center. Placed patient on waitlist and pushed imaging. Followup call placed at 16:43 and talked to Arielle who said there was still no bed available. Called back at 18:55 and took patient off waiting list. Called [facility] transfer center and talked to Jessie at 11:44. Placed followup call at 16:45 with no bed availability. Called transfer center and took patient off waiting list at 18:[address] [facility] transfer center at 11:52 who stated they are closed to all non critical access hospital transfers. Called [facility] at 11:57 and talked to supervisor feed house Lashay who stated they had no beds and refused to place any patients on waitlist. Called [facility] at 11:59 and left message for supervisor feed house to place patient on waitlist. Return call placed at 15:00. No return call ever recieved. Called [facility] transfer center and talked to Maribell. I placed the patient on waitlist and pushed imaging. Followup call placed at 16:14. Received phone call at 18:03 that stated patient was accepted for placement. Notified them that he had already secured a bed at [place] and asked to remove patient from waitlist.
--- NOTE | 2021-07-10 18:59 | PC.NURSE ---
Heparin drip and nitro drip continued with ALESSIO DRISCOLL.
[2021-07-10 19:01] LABS: PTT Partial Thromboplastin Tim 82 SECONDS (26.4-36.2)
== END 2021-07-10 19:01 | disposition short-term general hospital (02) ==
PROVIDERS: Emergency Provider Emergency Medicine; PCP Family Medicine
DX: I21.4 Non-ST elevation (NSTEMI) myocardial infarction (principal); R07.9 Chest pain, unspecified; Z20.822 Contact with and (suspected) exposure to COVID-19
CPT/HCPCS: 36415; 71045; 80053; 82550; 82553; 83690; 84484; 85025; 85610; 85730; 87635; 93005; 96365; 96366; 96368; 96375; 99285; 99291; C9803; J1644

== ENCOUNTER → 2021-07-13 15:05 | Outpatient (CLI) | payer MEDICARE, OTHER, SELFPAY ==
[2021-07-13 15:59] LABS: BUN Creatinine Ratio 21.6 (6-22); Blood Urea Nitrogen 30 mg/dL (9-20); Calcium 9.2 mg/dL (8.4-10.2); Carbon Dioxide 25 mmol/L (22-32); Chloride 106 mmol/L (98-107); Estimated Glomerular Filt Rate 50.1 mL/min (>60); Glucose 126 mg/dL (80-110); HEMOLYSIS < 15 (0-50); Potassium 3.6 mmol/L (3.4-5.1); Sodium 138 mmol/L (137-145)
== END ==
PROVIDERS: PCP Family Medicine; Referring Provider Family Medicine; Visit Provider Family Medicine
DX: E03.9 Hypothyroidism, unspecified (principal); E78.5 Hyperlipidemia, unspecified; E87.6 Hypokalemia; I10 Essential (primary) hypertension
CPT/HCPCS: 36415; 80048

== ENCOUNTER 2021-07-18 04:45 | Emergency (ER) | payer MEDICARE, OTHER, SELFPAY ==
[2021-07-18] VITALS (18 sets, daily range): BP systolic 123–158; BP diastolic 65–94; PULSE 51–62; RESP 13–24; TEMP 36.7; O2SAT 93–99; BMI 22.8
--- NOTE | 2021-07-18 04:52 | ED.CHESTPAIN ---
HPI - Chest Pain <Yuri Pereira DO - Last Filed: 07/23/21 18:56> General Chief Complaint: Chest Pain Stated Complaint: CP after stent placement Time Seen by Provider: 07/18/21 04:51 History of Present Illness HPI narrative: 71M nonsmoker with history of coronary artery disease and a recent heart catheterization with 6 stents last week at [facility] presents by EMS for evaluation of ongoing chest pressure and discomfort. He states that it feels a bit better than when he presented initially prior to being transferred and intervened upon but has changed very little since that time he was discharged. He states that it is about a 1-2 and retrosternal with some radiation to his left chest. He denies any obvious provocation or palliation. He states that is cramping and aching in nature and persistent much of the time. He has had belching and nausea and poor appetite ever since discharge as well. He denies any dizziness or lightheadedness but states that he continues to be short of breath with exertion. He has had no nausea or vomiting nor any diarrhea. He did take a baby aspirin prior to coming but elected not to take any of his nitro at any point as he did not feel comfortable Related Data Home Medications Medication Instructions Recorded Confirmed ascorbate calcium (vitamin C) 500 500 mg PO BID 07/07/20 07/14/21 mg tablet cholecalciferol (vitamin D3) 250 250 mcg PO QAM 07/07/20 07/14/21 mcg (10,000 unit) capsule glucosamine 750 mg-MSM 60 1 tab PO BID 07/07/20 07/14/21 mg-chondroit 150 mg-hyaluron ac 1 mg tablet amlodipine 10 mg tablet 10 mg PO QAM 07/10/21 07/14/21 dutasteride 0.5 mg capsule 0.5 mg PO QAM 07/10/21 07/14/21 esomeprazole magnesium 20 mg 20 mg PO QAM 07/10/21 07/14/21 capsule,delayed release losartan 50 mg tablet 50 mg PO QAM 07/10/21 07/14/21 potassium chloride 10 mEq 10 meq PO QAM 07/10/21 07/14/21 tablet,extended release tamsulosin 0.4 mg capsule (Flomax) 0.4 mg PO QAM 07/10/21 07/14/21 Previous Rx's Medication Instructions Recorded indomethacin 50 mg capsule 50 mg PO TIDP PRN #30 cap 10/26/20 Allergies Allergy/AdvReac Type Severity Reaction Status Date / Time latex Allergy Rash Verified 07/14/21 09:41 Review of Systems <Yuri Pereira DO - Last Filed: 07/23/21 18:56> Review of Systems Narrative: GENERAL: Denies chills, fatigue, malaise, fever, sweats. HEENT: Denies sinus pain, ear pain, sore throat, difficulty swallowing, dizziness. RESPIRATORY: Denies dyspnea, cough, wheezing, hemoptysis, sputum. CARDIOVASCULAR: See HPI GASTROINTESTINAL: Denies nausea, vomiting, abdominal pain, diarrhea, constipation, melena. : Denies dysuria, frequency, incontinence, hematuria, urinary retention. MUSCULOSKELETAL: denies weakness, joint pain, or bony pain SKIN: Denies rash, skin lesions, or other NEUROLOGIC: Denies weakness, headache, numbness, change in speech, confusion, seizures, incoordination. PSYCHIATRIC: No concerning psychosocial issues. 12 point review of systems is negative except for those stated above Patient History <Yuri Pereira DO - Last Filed: 07/23/21 18:56> Medical History (Updated 07/18/21 @ 10:46 by Carol Christian RN) Abdominal bloating Actinic keratoses Adverse reaction to antibiotic Aortic aneurysm, abdominal Aortic regurgitation (1994) Benign prostatic hyperplasia BRBPR (bright red blood per rectum) Cardiac arrhythmia Cerumen impaction Cervical somatic dysfunction Chronic pain of left ankle Chronic right shoulder pain Chronic thoracic back pain Constipation Cranial somatic dysfunction Elevated PSA Fecal incontinence Frequent loose stools Gallbladder polyp Gluten enteropathy Gout Hiatal hernia Hypothyroidism Low testosterone Lumbar region somatic dysfunction Medication side effects present Onychomycosis Other stressful life events affecting family and household Pancreatitis Pelvic somatic dysfunction Renal cyst Sacral region somatic dysfunction Scoliosis Scoliosis of thoracic spine Segmental and somatic dysfunction of abdomen and other regions Segmental and somatic dysfunction of rib cage Segmental and somatic dysfunction of upper extremity Shoulder pain Skin rash Sleep disorder Somatic dysfunction of lower extremity Stiff neck Stress due to illness of family member Thoracic region somatic dysfunction Surgical History Anesthesia Ankle fracture (1978) History of eyelid surgery (2016) History of pancreatic surgery (1994) Family History Brother Age: 65 No problems noted. Father Heart disease Mental health problem Smoker Alcoholic Brother No problems noted. Grandfather Cancer Grandmother No problems noted. Mother No problems noted. Grandfather Fall from roof Grandmother Cancer Sister Overweight Sister No problems noted. Social History marital status: number of children: 0 household members: none lives independently: Yes caregiver/support person: No housing: house Smoking Status: Never smoker second hand exposure: No alcohol intake: never substance use type: does not use Smoking Status: Never smoker alcohol intake frequency: 0-2 drinks per day Substance Use Type: does not use Exam <Yuri Pereira DO - Last Filed: 07/23/21 18:56> Narrative Exam Narrative: GENERAL: [71 year old patient appears stated age. Well-developed patient, in mild distress. A bit anxious HEAD: Atraumatic. Normocephalic. EYES: Pupils equal round and reactive. Extraocular motions intact. No scleral icterus. No injection or drainage. ENT: Nose without bleeding, purulent drainage. Throat without erythema, tonsillar hypertrophy or exudate. Airway patent. NECK: Trachea midline. Non tender CARDIOVASCULAR: Regular rate and rhythm without murmurs, gallops, or rubs. RESPIRATORY: Clear to auscultation. Breath sounds equal bilaterally. No wheezes, rales, or rhonchi. GASTROINTESTINAL: Abdomen soft, non-tender, nondistended. EXTREMITIES: No edema or joint tenderness. BACK: Nontender without deformity or crepitance. No flank tenderness. NEURO: AOx3. SKIN: No rash or erythema of visible areas Initial Vital Signs Initial Vital Signs: Vital Signs Temperature 98.0 F 07/18/21 04:54 Pulse Rate 61 07/18/21 04:54 Respiratory Rate 20 07/18/21 04:54 Blood Pressure 158/94 H 07/18/21 04:54 Pulse Oximetry 99 07/18/21 04:54 <Mima Bustamante DO - Last Filed: 07/18/21 18:52> Initial Vital Signs Initial Vital Signs: Vital Signs Temperature 98.0 F 07/18/21 04:54 Pulse Rate 61 07/18/21 04:54 Respiratory Rate 20 07/18/21 04:54 Blood Pressure 158/94 H 10/18/21 04:54 Pulse Oximetry 99 07/18/21 04:54 Course <Yuri Pereira DO - Last Filed: 07/23/21 18:56> Orders Ordered: Discontinued Medications Aspirin (Aspirin 81 Mg Chew Tab) 324 mg PO NOW ONE Stop: 07/18/21 04:54 Last Admin: 07/18/21 05:09 Dose: 243 mg Documented by: RAVINDER Al Hydrox/Mg Hydrox/Simethicone 20 ml/ Lidocaine HCl 15 ml 0 ml PO NOW ONE Stop: 07/18/21 10:06 Last Admin: 07/18/21 10:10 Dose: 35 ml Documented by: DEVANTE Sodium Chloride (Normal Saline 0.9%) 1,000 mls @ 150 mls/hr IV CONT RUPERT Last Infusion: 07/18/21 10:45 Dose: 0 mls/hr Documented by: Admin: 07/18/21 05:09 Dose: 150 mls/hr Documented by: RAVINDER Nitroglycerin (Nitroglycerin 0.4 Mg Sl Tab) 0.4 mg SL [id number] PRN PRN Reason: Chest Pain Vital Signs Vital signs: Vital Signs - 8 hr 07/18/21 04:54 07/18/21 04:56 07/18/21 05:00 Temperature 98.0 F Pulse Rate 61 58 L 58 L Respiratory Rate 20 Blood Pressure 158/94 H Pulse Oximetry 99 98 97 07/18/21 05:06 07/18/21 05:30 07/18/21 06:00 Temperature Pulse Rate 62 55 L 60 Respiratory Rate 16 16 Blood Pressure 146/83 H 155/75 H Pulse Oximetry 98 98 94 07/18/21 06:30 07/18/21 07:00 07/18/21 07:30 Temperature Pulse Rate 52 L 52 L 51 L Respiratory Rate 19 20 16 Blood Pressure Pulse Oximetry 96 93 94 07/18/21 07:33 07/18/21 08:00 Temperature Pulse Rate 51 L 52 L Respiratory Rate 14 13 Blood Pressure 123/69 138/65 Pulse Oximetry 95 95 <DO Iliana Moreno Last Filed: 07/18/21 18:52> Orders Ordered: Discontinued Medications Aspirin (Aspirin 81 Mg Chew Tab) 324 mg PO NOW ONE Stop: 07/18/21 04:54 Last Admin: 07/18/21 05:09 Dose: 243 mg Documented by: RAVINDER Al Hydrox/Mg Hydrox/Simethicone 20 ml/ Lidocaine HCl 15 ml 0 ml PO NOW ONE Stop: 07/18/21 10:06 Last Admin: 07/18/21 10:10 Dose: 35 ml Documented by: DEVANTE Sodium Chloride (Normal Saline 0.9%) 1,000 mls @ 150 mls/hr IV CONT RUPERT Last Infusion: 07/18/21 10:45 Dose: 0 mls/hr Documented by: Admin: 07/18/21 05:09 Dose: 150 mls/hr Documented by: RAVINDER Nitroglycerin (Nitroglycerin 0.4 Mg Sl Tab) 0.4 mg SL [id number] PRN PRN Reason: Chest Pain Vital Signs Vital signs: Vital Signs - 8 hr 07/18/21 04:54 07/18/21 04:56 07/18/21 05:00 Temperature 98.0 F Pulse Rate 61 58 L 58 L Respiratory Rate 20 Blood Pressure 158/94 H Pulse Oximetry 99 98 97 07/18/21 05:06 07/18/21 05:30 07/18/21 06:00 Temperature Pulse Rate 62 55 L 60 Respiratory Rate 16 16 Blood Pressure 146/83 H 155/75 H Pulse Oximetry 98 98 94 07/18/21 06:30 07/18/21 07:00 07/18/21 07:30 Temperature Pulse Rate 52 L 52 L 51 L Respiratory Rate 19 20 16 Blood Pressure Pulse Oximetry 96 93 94 07/18/21 07:33 07/18/21 08:00 Temperature Pulse Rate 51 L 52 L Respiratory Rate 14 13 Blood Pressure 123/69 138/65 Pulse Oximetry 95 95 MDM - Chest Pain <Yuri Pereira DO - Last Filed: 07/23/21 18:56> Lab Data Result diagrams: 07/18/21 04:50 07/18/21 04:50 Labs: Lab Results 07/18/21 07/18/21 07/18/21 Range/Units 04:50 04:50 04:50 WBC 5.7 (4.5-11.0) X10^3/uL RBC 4.55 (4.5-5.9) X10^6/uL Hgb 12.9 L (13.5-17.5) g/dL Hct 39.2 L (41-53) % MCV 86.1 (80-100) fL MCH 28.3 (26-34) PG MCHC 32.9 (30-36) % RDW 13.6 (11.6-14.8) % Plt Count 214 (150-400) X10^3/uL Neut % (Auto) 77.3 H (50-75) % Lymph % (Auto) 8.2 L (25-40) % [place] % (Auto) 8.8 (3-14) % Eos % (Auto) 2.3 (2-4) % Baso % (Auto) 3.4 H (0-2) % Neut # (Auto) 4400 (5655-2299) /uL Lymph # (Auto) 500 L (4014-9339) /uL [place] # (Auto) 500 (0-900) /uL Eos # (Auto) 100 (0-450) /uL Baso # (Auto) 200 H (0-100) /uL PT 11.4 (10.1-12.7) SECONDS INR 1.0 (0.9-1.3) APTT 31 D (26.4-36.2) SECONDS Sodium 139 (137-145) mmol/L Potassium 3.8 (3.4-5.1) mmol/L Chloride 102 (98-107) mmol/L Carbon Dioxide 30 (22-32) mmol/L BUN 18 (9-20) mg/dL Creatinine 1.02 (0.66-1.25) mg/dL Estimated GFR > 60.0 (>60) mL/min BUN/Creatinine Ratio 17.6 (6-22) Glucose 98 (80-110) mg/dL Calcium 9.5 (8.4-10.2) mg/dL Total Bilirubin 0.8 (0.2-1.3) mg/dL AST 43 (17-59) IU/L ALT 36 (<50) IU/L Alkaline Phosphatase 185 H D (38-126) U/L Total Creatine Kinase 86 (55-170) U/L CK-MB (CK-2) TNP CK-MB (CK-2) Rel Index TNP Troponin I 1.610 H* (0.01-0.034) ng/mL NT-Pro-B Natriuret Pep 2970 H (<125) pg/mL Total Protein 6.9 (6.3-8.2) g/dL Albumin 4.2 (3.5-5.0) g/dL Globulin 2.7 (1.7-4.1) g/dL Albumin/Globulin Ratio 1.6 (1.0-2.8) Lipase 33 (23-300) U/L 07/18/ Range/Units 07:45 WBC (4.5-11.0) X10^3/uL RBC (4.5-5.9) X10^6/uL Hgb (13.5-17.5) g/dL Hct (41-53) % MCV (80-100) fL MCH (26-34) PG MCHC (30-36) % RDW (11.6-14.8) % Plt Count (150-400) X10^3/uL Neut % (Auto) (50-75) % Lymph % (Auto) (25-40) % [place] % (Auto) (3-14) % Eos % (Auto) (2-4) % Baso % (Auto) (0-2) % Neut # (Auto) (2602-8881) /uL Lymph # (Auto) (2227-9415) /uL [place] # (Auto) (0-900) /uL Eos # (Auto) (0-450) /uL Baso # (Auto) (0-100) /uL PT (10.1-12.7) SECONDS INR (0.9-1.3) APTT (26.4-36.2) SECONDS Sodium (137-145) mmol/L Potassium (3.4-5.1) mmol/L Chloride (98-107) mmol/L Carbon Dioxide (22-32) mmol/L BUN (9-20) mg/dL Creatinine (0.66-1.25) mg/dL Estimated GFR (>60) mL/min BUN/Creatinine Ratio (6-22) Glucose (80-110) mg/dL Calcium (8.4-10.2) mg/dL Total Bilirubin (0.2-1.3) mg/dL AST (17-59) IU/L ALT (<50) IU/L Alkaline Phosphatase (38-126) U/L Total Creatine Kinase (55-170) U/L CK-MB (CK-2) CK-MB (CK-2) Rel Index Troponin I 1.400 H* (0.01-0.034) ng/mL NT-Pro-B Natriuret Pep (<125) pg/mL Total Protein (6.3-8.2) g/dL Albumin (3.5-5.0) g/dL Globulin (1.7-4.1) g/dL Albumin/Globulin Ratio (1.0-2.8) Lipase (23-300) U/L Urine Dip Bedside Urine Glucose Negative Bedside Urine Bilirubin - Negative Bedside Urine Ketone - Negative Urine Specific [place] 1.015 Bedside Urine Occult Blood - Negative Bedside Urine pH 7.0 Bedside Urine Protein - Negative Bedside Urine Urobilinogen - Negative Bedside Urine Nitrite - Negative Bedside Urine Leukocytes - Negative Esterase ECG Data Interpretation: EKG: Sinus rhythm, rate 60, first-degree block ND is 230. There are inverted T-waves in the inferior leads as well as Q-waves which are new from prior <Mima Bustamanet DO - Last Filed: 07/18/21 18:52> Lab Data Labs: Lab Results 07/18/21 07/18/21 07/18/21 Range/Units 04:50 04:50 04:50 WBC 5.7 (4.5-11.0) X10^3/uL RBC 4.55 (4.5-5.9) X10^6/uL Hgb 12.9 L (13.5-17.5) g/dL Hct 39.2 L (41-53) % MCV 86.1 (80-100) fL MCH 28.3 (26-34) PG MCHC 32.9 (30-36) % RDW 13.6 (11.6-14.8) % Plt Count 214 (150-400) X10^3/uL Neut % (Auto) 77.3 H (50-75) % Lymph % (Auto) 8.2 L (25-40) % [place] % (Auto) 8.8 (3-14) % Eos % (Auto) 2.3 (2-4) % Baso % (Auto) 3.4 H (0-2) % Neut # (Auto) 4400 (6637-3667) /uL Lymph # (Auto) 500 L (9794-2490) /uL [place] # (Auto) 500 (0-900) /uL Eos # (Auto) 100 (0-450) /uL Baso # (Auto) 200 H (0-100) /uL PT 11.4 (10.1-12.7) SECONDS INR 1.0 (0.9-1.3) APTT 31 D (26.4-36.2) SECONDS Sodium 139 (137-145) mmol/L Potassium 3.8 (3.4-5.1) mmol/L Chloride 102 (98-107) mmol/L Carbon Dioxide 30 (22-32) mmol/L BUN 18 (9-20) mg/dL Creatinine 1.02 (0.66-1.25) mg/dL Estimated GFR > 60.0 (>60) mL/min BUN/Creatinine Ratio 17.6 (6-22) Glucose 98 (80-110) mg/dL Calcium 9.5 (8.4-10.2) mg/dL Total Bilirubin 0.8 (0.2-1.3) mg/dL AST 43 (17-59) IU/L ALT 36 (<50) IU/L Alkaline Phosphatase 185 H D (38-126) U/L Total Creatine Kinase 86 (55-170) U/L CK-MB (CK-2) TNP CK-MB (CK-2) Rel Index TNP Troponin I 1.610 H* (0.01-0.034) ng/mL NT-Pro-B Natriuret Pep 2970 H (<125) pg/mL Total Protein 6.9 (6.3-8.2) g/dL Albumin 4.2 (3.5-5.0) g/dL Globulin 2.7 (1.7-4.1) g/dL Albumin/Globulin Ratio 1.6 (1.0-2.8) Lipase 33 (23-300) U/L 07/18/21 Range/Units 07:45 WBC (4.5-11.0) X10^3/uL RBC (4.5-5.9) X10^6/uL Hgb (13.5-17.5) g/dL Hct (41-53) % MCV (80-100) fL MCH (26-34) PG MCHC (30-36) % RDW (11.6-14.8) % Plt Count (150-400) X10^3/uL Neut % (Auto) (50-75) % Lymph % (Auto) (25-40) % [place] % (Auto) (3-14) % Eos % (Auto) (2-4) % Baso % (Auto) (0-2) % Neut # (Auto) (5047-3966) /uL Lymph # (Auto) (8355-1008) /uL [place] # (Auto) (0-900) /uL Eos # (Auto) (0-450) /uL Baso # (Auto) (0-100) /uL PT (10.1-12.7) SECONDS INR (0.9-1.3) APTT (26.4-36.2) SECONDS Sodium (137-145) mmol/L Potassium (3.4-5.1) mmol/L Chloride (98-107) mmol/L Carbon Dioxide (22-32) mmol/L BUN (9-20) mg/dL Creatinine (0.66-1.25) mg/dL Estimated GFR (>60) mL/min BUN/Creatinine Ratio (6-22) Glucose (80-110) mg/dL Calcium (8.4-10.2) mg/dL Total Bilirubin (0.2-1.3) mg/dL AST (17-59) IU/L ALT (<50) IU/L Alkaline Phosphatase (38-126) U/L Total Creatine Kinase (55-170) U/L CK-MB (CK-2) CK-MB (CK-2) Rel Index Troponin I 1.400 H* (0.01-0.034) ng/mL NT-Pro-B Natriuret Pep (<125) pg/mL Total Protein (6.3-8.2) g/dL Albumin (3.5-5.0) g/dL Globulin (1.7-4.1) g/dL Albumin/Globulin Ratio (1.0-2.8) Lipase (23-300) U/L Urine Dip Bedside Urine Glucose Negative Bedside Urine Bilirubin - Negative Bedside Urine Ketone - Negative Urine Specific [place] 1.015 Bedside Urine Occult Blood - Negative Bedside Urine pH 7.0 Bedside Urine Protein - Negative Bedside Urine Urobilinogen - Negative Bedside Urine Nitrite - Negative Bedside Urine Leukocytes - Negative Esterase Imaging Data CT angio: Radiologist's Impression: Preliminary report Scarring and bronchiectasis present along medial aspects of left upper and right middle lobes with in numerable central lobular nodules bilaterally most likely reflective of an atypical infectious process Coronary artery calcifications and or stents Patent arterial vessels in abdomen and pelvis No acute finding in abdomen or pelvis. Renal cysts much larger on her right as detailed. Nonobstructing right renal calculus. Enlarged prostate. ECG Data Interpretation: EKG: Sinus rhythm, rate 60, first-degree block ND is 230. There are inverted T-waves in the inferior leads as well as Q-waves which are new from prior EKG 3. Sinus rhythm rate 52 nonspecific T-wave inversions possible beginnings of Wellens in V2 V3 although does look similar her to EKG on July [address] elevations or depression MDM Narrative Medical decision making narrative: I received sign-out from Dr. Pereira of seen evaluated patient myself. He was released from [facility] 1 week ago after having 6 stents placed. Symptoms at that time were indigestion. He said he was feeling well until yesterday when he felt like his indigestion return. He says it certainly was not as intense as it was last week. He feels chest tightness. It is nonradiating. He denies any shortness of breath. He has been taking medications as prescribed. He is found to have troponin of 1.6 and the 2nd 1.4, apparently went up to 14, records from [place] have been received and reviewed unfortunately the latest troponin was not sent. Patient has received aspirin in the emergency department he no longer is having any chest tightness or discomfort or signs of indigestion. He has no EKG changes. CT angio does not show any abnormality. He has not missed any of his medications Patient essentially has down trending troponins no EKG changes and negative angio is and is no longer having any chest discomfort 930 Dr. Umana, manager hotel survey operations director at [facility], was unwilling to give advice. However she does state that workup is overall reassuring. To patient has outpatient follow-up with nurse practitioner my next week, I have called the office and re-scheduled follow-up in 2 days. IHad long discussion with patient and symptoms. At this time he understands if his symptoms worsen he needs return to the emergency department immediately. I discussed all findings with the patient , Education has been performed regarding treatment plan, diagnosis, warning signs and symptoms and all concerns have been addressed. Verbally agree with and understood all of the above. Discharge Plan Departure Patient Disposition: Home Clinical Impression: Atypical chest pain, Constipation Instructions: DI for Atypical Chest Pain Activity Restrictions/Additional Instructions: *You have been diagnosed with atypical chest discomfort *What to do: At this time her blood work is overall reassuring her workup does not show any abnormality. Please please continue to take all of your medications. *Continue to take medications as directed *Follow up with your primary care provider in 2-3 days Follow-up with Cardiology on SundayJuly 20 at 9am in person At [address], [place] [facility] *Return to ER if you should have increasing chest discomfort, chest burning, shortness of breath, arm pain, jaw pain, no relief nitroglycerin or if you do have relief with nitroglycerin return to emergency department or any new, worsening or concerning symptoms Prescriptions: No Action indomethacin 50 mg capsule 50 mg PO TIDP PRN (Reason: gout) Qty: 30 RF: 1 cholecalciferol (vitamin D3) 250 mcg (10,000 unit) capsule 250 mcg PO QAM RF: 0 ascorbate calcium (vitamin C) 500 mg tablet 500 mg PO BID RF: 0 ixfzxmlm-CPC-shmjx-hyaluron ac [id number] mg tablet 1 tab PO BID RF: 0 esomeprazole magnesium 20 mg capsule,delayed release(DR/EC) 20 mg PO QAM RF: 0 dutasteride 0.5 mg capsule 0.5 mg PO QAM RF: 0 losartan 50 mg tablet 50 mg PO QAM RF: 0 potassium chloride 10 mEq tablet extended release 10 meq PO QAM RF: 0 amlodipine 10 mg tablet 10 mg PO QAM RF: 0 tamsulosin [Flomax] 0.4 mg capsule 0.4 mg PO QAM RF: 0 Referrals: Irwin Amador DO [Primary Care Provider] -
[2021-07-18 05:02] LABS: Add Manual Diff / Slide Review NO; Basophils Absolute Auto 200 /uL (0-100); Basophils Percent Auto 3.4 % (0-2); Eosinophils Absolute Auto 100 /uL (0-450); Eosinophils Percent Auto 2.3 % (2-4); Hematocrit 39.2 % (41-53); Hemoglobin 12.9 g/dL (13.5-17.5); Lymphocytes Absolute Auto 500 /uL (1100-4500); Lymphocytes Percent Auto 8.2 % (25-40); Mean Corpuscular HGB Conc 32.9 % (30-36); Mean Corpuscular Hemoglobin 28.3 PG (26-34); Mean Corpuscular Volume 86.1 fL (80-100); Monocytes Absolute Auto 500 /uL (0-900); Monocytes Percent Auto 8.8 % (3-14); Neutrophils Absolute Auto 4400 /uL (1500-7000); Neutrophils Percent Auto 77.3 % (50-75); Platelet Count 214 X10^3/uL (150-400); Red Blood Cell Count 4.55 X10^6/uL (4.5-5.9); Red Cell Distribution Width 13.6 % (11.6-14.8); White Blood Cell Count 5.7 X10^3/uL (4.5-11.0)
[2021-07-18 05:06] LABS: Prothrombin Time 11.4 SECONDS (10.1-12.7)
[2021-07-18 05:09] LABS: PTT Partial Thromboplastin Tim 31 SECONDS (26.4-36.2)
[2021-07-18] MEDS: SODIUM CHLORIDE 0.9% 1,000 ML 150 ML IV (05:09)
[2021-07-18] MEDS: ASPIRIN 81 MG CHEW TAB 324 MG PO (05:09)
--- NOTE | 2021-07-18 05:09 | DI.CT.S_ITS ---
PROCEDURE: CT ANGIO CHEST ABDOMEN PELVIS INDICATIONS: ongoing pain, cath last week, 6 stents TECHNIQUE: Precontrast 5 mm thick sections acquired from the lung apices to the iliac crests. After the administration of intravenous contrast, 2.5 mm thick sections again acquired from the lung apices to the iliac crests. Maximum intensity projection (MIP) oblique sagittal and coronal reformats were then acquired. For radiation dose reduction, the following was used: automated exposure control. COMPARISON: None. FINDINGS: Image quality: Excellent. AORTA: Intramural hematoma: Absent Maximum hematoma thickness: Not applicable. Focal contrast enhancement: Intramural blood pool (< 2 mm neck or imperceptible communication with aortic lumen): Absent. Ulcer-like projection (broad communication with aortic lumen > 3 mm): Absent. Dissection: Absent Aime classification: Not applicable Maximum aortic diameter: 4.1 cm. [If Aime A dissection, > 5.0 cm has a poorer prognosis. If Tobias B dissection, > 4.0 cm has a poorer prognosis.] Periaortic hematoma: Absent. CHEST: Lungs and pleura: Small areas of consolidation with internal air bronchograms noted in the anterior-medial aspect of the left upper lobe and the right middle lobe which could represent pneumonia or parenchymal scarring with bronchiectasis. Multiple tree-in-bud opacities noted in the periphery of the lung bases bilaterally most concerning for infection. No pleural effusions or pneumothorax. Central and peripheral airways are patent and normal in caliber. Mediastinum: Heart size is normal. Atherosclerotic calcifications are noted in the aorta, great vessels and the coronary vasculature. Coronary artery endovascular stents noted. Small pericardial effusion. No mediastinal or hilar adenopathy by size criteria. Central pulmonary arteries are normal in size. Esophagus is normal in caliber. No hiatal hernias. Bones and chest wall: No axillary adenopathy by size criteria. Thyroid gland is normal. No suspicious bony lesions. No vertebral body compression fractures. ABDOMEN: Vasculature: Celiac trunk and mesenteric arteries are patent. Renal arteries are also patent. Solid organs: Liver is normal in size and enhancement. Gallbladder is absent. Biliary system is non dilated. Pancreas enhances normally. Spleen is normal in size and enhancement. No adrenal nodules. Both kidneys are normal in size and enhancement, without hydronephrosis. Bilateral renal cysts noted right greater than left. There is a large 13.7 centimeter in maximum diameter exophytic right renal cyst. 4 millimeter nonobstructing stone noted in the lower pole of the right kidney. Peritoneum and bowel: No free fluid or air. Bowel loops are normal in caliber and wall thickness. Scattered colonic diverticuli without evidence of diverticulitis. Appendix is normal. Nodes and vessels: No retroperitoneal or mesenteric adenopathy by size criteria. Inferior vena cava is normal in morphology. Scattered atherosclerotic calcifications involving the abdominal and pelvic vasculature. Miscellaneous: No ventral hernias. PELVIS: Genitourinary: Bladder wall thickness is normal. Prostate is enlarged most pronounced in the median lobe. Miscellaneous: No inguinal adenopathy. Small bilateral fat containing inguinal hernias. No ventral hernias. Bones: No suspicious bony lesions. No vertebral body compression fractures. IMPRESSION: 1. No aortic dissection or aneurysm. 2. Focal consolidation in the right middle lobe and left upper lobe which could represent pneumonia or parenchymal scarring with bronchiectasis. 3. Tree-in-bud opacities in the periphery of the lung bases bilaterally highly suspicious for atypical infection. 4. Atherosclerosis including coronary vasculature. Coronary artery endovascular stents noted. New Amy a 5. Small pericardial fluid collection. 6. Renal cysts with large exophytic right renal cyst as described above. Dictated by: Cecy Velarde MD, PhD on 07/18/2021 at 7:46 Approved by: Cecy Velarde MD, PhD on 07/18/2021 at 7:58
[2021-07-18 05:10] LABS: Alanine Aminotransferase 36 IU/L (<50); Albumin 4.2 g/dL (3.5-5.0); Albumin Globulin Ratio 1.6 (1.0-2.8); Alkaline Phosphatase 185 U/L (38-126); Aspartate Aminotransferase 43 IU/L (17-59); BUN Creatinine Ratio 17.6 (6-22); Bilirubin Total 0.8 mg/dL (0.2-1.3); Blood Urea Nitrogen 18 mg/dL (9-20); Calcium 9.5 mg/dL (8.4-10.2); Carbon Dioxide 30 mmol/L (22-32); Chloride 102 mmol/L (98-107); Creatine Kinase 86 U/L (55-170); Estimated Glomerular Filt Rate > 60.0 mL/min (>60); Globulin 2.7 g/dL (1.7-4.1); Glucose 98 mg/dL (80-110); Lipase 33 U/L (23-300); Potassium 3.8 mmol/L (3.4-5.1); Sodium 139 mmol/L (137-145); Total Protein 6.9 g/dL (6.3-8.2)
[2021-07-18 05:22] LABS: NT-proBNP (BNP-Adult 18+) 2970 pg/mL (<125)
[2021-07-18 05:46] LABS: HEMOLYSIS 47 (0-50)
--- NOTE | 2021-07-18 07:35 | PC.NURSE ---
Pt denies pain in chest.
[2021-07-18] MEDS: MAG HYDROX/ALUMINUM/SIMETH SUS 20 ML, LIDOCAINE VISCOUS 2% 15 ML PO (10:10)
== END 2021-07-18 10:46 | disposition home or self-care (01) ==
PROVIDERS: Emergency Medicine; Emergency Provider Emergency Medicine; PCP Family Medicine
DX: R07.89 Other chest pain (principal); K59.00 Constipation, unspecified; I44.0 Atrioventricular block, first degree; Z95.5 Presence of coronary angioplasty implant and graft
CPT/HCPCS: 36415; 71275; 74174; 80053; 81003; 82550; 83690; 83880; 84484; 85025; 85610; 85730; 93005; 93010; 96360; 96361; 99284; 99285; Q9967

== ENCOUNTER → 2021-07-25 07:08 | Outpatient (CLI) | payer MEDICARE, OTHER, SELFPAY | PROVIDERS: PCP Family Medicine; Referring Provider Nurse Practitioner Family; Visit Provider Nurse Practitioner Family | DX: R30.9 Painful micturition, unspecified (principal) | CPT/HCPCS: 87077; 87086; 87147; 87186 ==

== ENCOUNTER 2021-09-12 07:22 | Emergency (ER) | payer MEDICARE, OTHER, SELFPAY ==
--- NOTE | 2021-09-12 07:25 | ED.GENADULT ---
HPI - General Adult General Chief complaint: Chest Pain Stated complaint: Clammy Time Seen by Provider: 09/12/21 07:22 Source: patient Mode of arrival: EMS Limitations: no limitations History of Present Illness HPI narrative: Patient is a 71-year-old male. Approximately 2 months ago he was seen here in this emergency department by myself. Was eventually transferred to the diagnosis of a non ST-elevation SC. he states that he did receive multiple stents. He is here today because he stated that he did not sleep very well last night. He was standing this morning making some breakfast where he started to become somewhat lightheaded and very clammy. He did have some chest discomfort. He did take 3 nitro and after the 3rd nitro as symptoms seem to improve. He also took aspirin. Since his event 2 months ago he has had frequent chest discomfort. He states that he also has a history of reflux disease and he is having difficulty distinguishing between what is reflux and what is potentially cardiovascular issues. He has been on as omeprazole in the past but not currently. He has been taking other medications to try to help his reflux. The time of my evaluation he states he feels much better. He has seen his help desk manager since the event 2 months ago. Does not have a follow-up appointment currently scheduled. Related Data Home Medications Medication Instructions Recorded Confirmed ascorbate calcium (vitamin C) 500 500 mg PO BID 07/07/20 07/26/21 mg tablet cholecalciferol (vitamin D3) 250 250 mcg PO QAM 07/07/20 07/26/21 mcg (10,000 unit) capsule glucosamine 750 mg-MSM 60 1 tab PO BID 07/07/20 07/26/21 mg-chondroit 150 mg-hyaluron ac 1 mg tablet dutasteride 0.5 mg capsule 0.5 mg PO QAM 07/10/21 07/26/21 esomeprazole magnesium 20 mg 20 mg PO QAM 07/10/21 07/26/21 capsule,delayed release losartan 50 mg tablet 50 mg PO QAM 07/10/21 07/26/21 potassium chloride 10 mEq 10 meq PO QAM 07/10/21 07/26/21 tablet,extended release tamsulosin 0.4 mg capsule (Flomax) 0.4 mg PO QAM 07/10/21 07/26/21 atorvastatin 80 mg tablet 80 mg PO DAILY 07/25/21 07/26/21 metoprolol succinate 25 mg capsule 25 mg PO DAILY 07/25/21 07/26/21 sprinkle, ext. release 24 hr nitroglycerin 0.4 mg sublingual 0.4 mg SUBLINGUAL Q5M PRN 07/25/21 07/26/21 tablet prasugrel 10 mg tablet 10 mg PO DAILY 07/25/21 07/26/21 Previous Rx's Medication Instructions Recorded amlodipine 10 mg tablet 10 mg PO QAM #90 tab 08/08/21 indomethacin 50 mg capsule See Rx Instructions .ROUTE 08/12/21 .COMPLEX #30 cap Allergies Allergy/AdvReac Type Severity Reaction Status Date / Time latex Allergy Rash Verified 07/26/21 16:14 Review of Systems Constitutional Constitutional: Denies fever(s) Cardiovascular Cardiovascular: Reports as per HPI and Reports system reviewed and no additional complaints, except as documented Respiratory Respiratory: Reports as per HPI and Reports system reviewed and no additional complaints, except as documented Gastrointestinal Gastrointestinal: Reports system reviewed and no additional complaints, except as documented Musculoskeletal Musculoskeletal: Reports system reviewed and no additional complaints, except as documented Integumentary/Breasts Skin/Breast: Reports system reviewed and no additional complaints, except as documented Neurologic Neurologic: Reports system reviewed and no additional complaints, except as documented Hematologic/Lymphatic On Anticoagulants: No Allergic/Immunologic Allergic/Immunologic: Reports system reviewed and no additional complaints, except as documented Patient History Medical History Abdominal bloating Actinic keratoses Adverse reaction to antibiotic Aortic aneurysm, abdominal Aortic regurgitation (1994) Benign prostatic hyperplasia BRBPR (bright red blood per rectum) Cardiac arrhythmia Cerumen impaction Cervical somatic dysfunction Chronic pain of left ankle Chronic right shoulder pain Chronic thoracic back pain Constipation Cranial somatic dysfunction Elevated PSA Fecal incontinence Frequent loose stools Gallbladder polyp GERD (gastroesophageal reflux disease) Gluten enteropathy Gout Hiatal hernia Hypothyroidism Low testosterone Lumbar region somatic dysfunction Medication side effects present Onychomycosis Other stressful life events affecting family and household Pancreatitis Pelvic somatic dysfunction Renal cyst Sacral region somatic dysfunction Scoliosis Scoliosis of thoracic spine Segmental and somatic dysfunction of abdomen and other regions Segmental and somatic dysfunction of rib cage Segmental and somatic dysfunction of upper extremity Shoulder pain Skin rash Sleep disorder Somatic dysfunction of lower extremity Stiff neck Stress due to illness of family member Thoracic region somatic dysfunction Surgical History Anesthesia Ankle fracture (1978) History of eyelid surgery (2016) History of pancreatic surgery (1994) Family History Brother Age: 65 No problems noted. Father Heart disease Mental health problem Smoker Alcoholic Brother No problems noted. Grandfather Cancer Grandmother No problems noted. Mother No problems noted. Grandfather Fall from roof Grandmother Cancer Sister Overweight Sister No problems noted. Social History marital status: number of children: 0 household members: none lives independently: Yes caregiver/support person: No housing: house Smoking Status: Never smoker second hand exposure: No alcohol intake: never substance use type: does not use Smoking Status: Never smoker alcohol intake frequency: 0-2 drinks per day Substance Use Type: does not use Exam Initial Vital Signs Initial Vital Signs: Vital Signs Temperature 97.8 F 09/12/21 07:29 Pulse Rate 46 L 09/12/21 07:29 Respiratory Rate 16 09/12/21 07:29 Blood Pressure 122/68 09/12/21 07:29 Pulse Oximetry 97 09/12/21 07:29 Const General: cooperative, healthy appearing, comfortable, well developed and well groomed Limitations: mental status not altered HENMT Head: normal to inspection and normocephalic Chest Chest: normal inspection of the chest Resp Effort & Inspection: normal respiratory effort Auscultation: clear to auscultation bilaterally Cardio Rate: regular rate Rhythm: regular rhythm GI Inspection: non-distended Palpation: soft and No tender Back/Spine/Pelvis Back: normal to inspection Skin General: no rashes or lesions noted Neuro General: patient alert, patient awake, patient oriented x3 and moves all extremities Extrem General: normal to inspection and capillary refill normal Psych Appearance: grossly normal and well kempt Course Orders Ordered: ED Orders 09/12/21 07:24 EKG-12 Lead Stat 09/12/21 07:25 Complete Blood Count AUTO DIFF Stat Comprehensive Metabolic Panel Stat Lipase Stat Thyroid Stimulating Hormone Stat Troponin & CK Cardiac Panel Stat 09/12/21 07:31 COVID19 -Nasal swab/Pre-Proc Stat Influenza A & B (PCR) Stat 09/12/21 08:40 Urine Microscopic Stat 09/12/21 09:41 Troponin I Stat Vital Signs Vital signs: Vital Signs - 8 hr 09/12/21 07:29 09/12/21 09:41 09/12/21 10:00 Temperature 97.8 F Pulse Rate 46 L 45 L 46 L Respiratory Rate 16 16 21 Blood Pressure 122/68 129/66 127/70 Pulse Oximetry 97 97 97 09/12/21 10:30 Temperature Pulse Rate 48 L Respiratory Rate 17 Blood Pressure 129/74 Pulse Oximetry 99 Medical Decision Making Medical Records Medical records reviewed: Yes I reviewed the patient's medical records. Lab Data Lab results reviewed: Yes I reviewed the patient's lab results. Result diagrams: 09/12/21 07:25 09/12/21 07:25 Labs: Lab Results 09/12/21 09/12/21 09/12/21 Range/Units 07:25 07:25 07:25 WBC 5.6 (4.5-11.0) X10^3/uL RBC 4.66 (4.5-5.9) X10^6/uL Hgb 13.2 L (13.5-17.5) g/dL Hct 39.0 L (41-53) % MCV 83.8 (80-100) fL MCH 28.4 (26-34) PG MCHC 33.9 (30-36) % RDW 14.1 (11.6-14.8) % Plt Count 199 (150-400) X10^3/uL Neut % (Auto) 62.1 (50-75) % Lymph % (Auto) 23.9 L (25-40) % Crawford % (Auto) 10.0 (3-14) % Eos % (Auto) 3.0 (2-4) % Baso % (Auto) 1.0 (0-2) % Neut # (Auto) 3500 (9745-1237) /uL Lymph # (Auto) 1300 (2744-7175) /uL Crawford # (Auto) 600 (0-900) /uL Eos # (Auto) 200 (0-450) /uL Baso # (Auto) 100 (0-100) /uL Sodium 139 (137-145) mmol/L Potassium 2.9 L (3.4-5.1) mmol/L Chloride 104 (98-107) mmol/L Carbon Dioxide 27 (22-32) mmol/L BUN 18 (9-20) mg/dL Creatinine 1.03 (0.66-1.25) mg/dL Estimated GFR > 60.0 (>60) mL/min BUN/Creatinine Ratio 17.5 (6-22) Glucose 124 H (80-110) mg/dL Calcium 9.1 (8.4-10.2) mg/dL Total Bilirubin 0.8 (0.2-1.3) mg/dL AST 50 (17-59) IU/L ALT 27 (<50) IU/L Alkaline Phosphatase 65 (38-126) U/L Total Creatine Kinase 97 (55-170) U/L CK-MB (CK-2) TNP CK-MB (CK-2) Rel Index TNP Troponin I 0.035 H (0.01-0.034) ng/mL Total Protein 6.5 (6.3-8.2) g/dL Albumin 4.0 (3.5-5.0) g/dL Globulin 2.5 (1.7-4.1) g/dL Albumin/Globulin Ratio 1.6 (1.0-2.8) Lipase 28 (23-300) U/L TSH 2.46 (0.47-4.68) uIU/mL Urine RBC (0-5/HPF) Urine WBC (0-5/HPF) Urine Bacteria (None) Hyaline Casts (None) Ur Culture Indicated? SARS-CoV-2 (PCR) (Negative) Influenza A (RT-PCR) (NEGATIVE) Influenza B (RT-PCR) (NEGATIVE) 09/12/21 09/12/21 09/12/21 Range/Units 07:31 07:31 08:40 WBC (4.5-11.0) X10^3/uL RBC (4.5-5.9) X10^6/uL Hgb (13.5-17.5) g/dL Hct (41-53) % MCV (80-100) fL MCH (26-34) PG MCHC (30-36) % RDW (11.6-14.8) % Plt Count (150-400) X10^3/uL Neut % (Auto) (50-75) % Lymph % (Auto) (25-40) % Crawford % (Auto) (3-14) % Eos % (Auto) (2-4) % Baso % (Auto) (0-2) % Neut # (Auto) (9540-1310) /uL Lymph # (Auto) (5950-9448) /uL Crawford # (Auto) (0-900) /uL Eos # (Auto) (0-450) /uL Baso # (Auto) (0-100) /uL Sodium (137-145) mmol/L Potassium (3.4-5.1) mmol/L Chloride (98-107) mmol/L Carbon Dioxide (22-32) mmol/L BUN (9-20) mg/dL Creatinine (0.66-1.25) mg/dL Estimated GFR (>60) mL/min BUN/Creatinine Ratio (6-22) Glucose (80-110) mg/dL Calcium (8.4-10.2) mg/dL Total Bilirubin (0.2-1.3) mg/dL AST (17-59) IU/L ALT (<50) IU/L Alkaline Phosphatase (38-126) U/L Total Creatine Kinase (55-170) U/L CK-MB (CK-2) CK-MB (CK-2) Rel Index Troponin I (0.01-0.034) ng/mL Total Protein (6.3-8.2) g/dL Albumin (3.5-5.0) g/dL Globulin (1.7-4.1) g/dL Albumin/Globulin Ratio (1.0-2.8) Lipase (23-300) U/L TSH (0.47-4.68) uIU/mL Urine RBC 0-1/hpf (0-5/HPF) Urine WBC 0-1/hpf (0-5/HPF) Urine Bacteria Occasional (0-1) (None) Hyaline Casts 0-1/lpf (None) Ur Culture Indicated? Cult not indicated SARS-CoV-2 (PCR) Negative (Negative) Influenza A (RT-PCR) Flu a negative (NEGATIVE) Influenza B (RT-PCR) Flu b negative (NEGATIVE) 09/12/21 Range/Units 09:41 WBC (4.5-11.0) X10^3/uL RBC (4.5-5.9) X10^6/uL Hgb (13.5-17.5) g/dL Hct (41-53) % MCV (80-100) fL MCH (26-34) PG MCHC (30-36) % RDW (11.6-14.8) % Plt Count (150-400) X10^3/uL Neut % (Auto) (50-75) % Lymph % (Auto) (25-40) % Crawford % (Auto) (3-14) % Eos % (Auto) (2-4) % Baso % (Auto) (0-2) % Neut # (Auto) (9265-3553) /uL Lymph # (Auto) (3981-5859) /uL Crawford # (Auto) (0-900) /uL Eos # (Auto) (0-450) /uL Baso # (Auto) (0-100) /uL Sodium (137-145) mmol/L Potassium (3.4-5.1) mmol/L Chloride (98-107) mmol/L Carbon Dioxide (22-32) mmol/L BUN (9-20) mg/dL Creatinine (0.66-1.25) mg/dL Estimated GFR (>60) mL/min BUN/Creatinine Ratio (6-22) Glucose (80-110) mg/dL Calcium (8.4-10.2) mg/dL Total Bilirubin (0.2-1.3) mg/dL AST (17-59) IU/L ALT (<50) IU/L Alkaline Phosphatase (38-126) U/L Total Creatine Kinase (55-170) U/L CK-MB (CK-2) CK-MB (CK-2) Rel Index Troponin I 0.032 (0.01-0.034) ng/mL Total Protein (6.3-8.2) g/dL Albumin (3.5-5.0) g/dL Globulin (1.7-4.1) g/dL Albumin/Globulin Ratio (1.0-2.8) Lipase (23-300) U/L TSH (0.47-4.68) uIU/mL Urine RBC (0-5/HPF) Urine WBC (0-5/HPF) Urine Bacteria (None) Hyaline Casts (None) Ur Culture Indicated? SARS-CoV-2 (PCR) (Negative) Influenza A (RT-PCR) (NEGATIVE) Influenza B (RT-PCR) (NEGATIVE) Urine Dip Bedside Urine Glucose Negative Bedside Urine Bilirubin - Negative Bedside Urine Ketone - Negative Urine Specific [place] 1.015 Bedside Urine Occult Blood - Negative Bedside Urine pH 6.5 Bedside Urine Protein +/- 15 Bedside Urine Urobilinogen - Negative Bedside Urine Nitrite - Negative Bedside Urine Leukocytes - Negative Esterase Point of care testing: Urine Dip Bedside Urine Glucose Negative Bedside Urine Bilirubin - Negative Bedside Urine Ketone - Negative Urine Specific [place] 1.015 Bedside Urine Occult Blood - Negative Bedside Urine pH 6.5 Bedside Urine Protein +/- 15 Bedside Urine Urobilinogen - Negative Bedside Urine Nitrite - Negative Bedside Urine Leukocytes - Negative Esterase ECG Data Attestation: I personally reviewed and interpreted this ECG as follows: Prior ECG tracings: available for review Interpretation: Sinus bradycardia Ventricular rate of 50 Normal QRS Normal QTC Nonspecific ST T wave changes Unchanged from EKG dated 07/18/2021 [facility] Narrative Medical decision making narrative: Patient's workup here in the emergency department is relatively unremarkable. He is bradycardic on his EKG but is unchanged from an EKG from 2 months ago. His troponins are unchanged. He is unsure as to whether not the symptoms he has been having his reflux verses cardiac symptoms. I do suspect a reflux component to the pain that brought him in today. Advised that he contact his primary doctor to discuss referral to see Gastroenterology. The plan will be is to have him take half of his metoprolol dose to see this does not improve his heart rate. Will also have him contact his primary doctor/help desk manager for follow-up. He was given return precautions. He expressed understanding and agreement. Discharge Plan Departure Patient Disposition: Home Clinical Impression: Atypical chest pain, Bradycardia Instructions: DI for Atypical Chest Pain, DI for Bradycardia Activity Restrictions/Additional Instructions: I do recommend that you take all of your medications as directed except that I recommend you decrease your metoprolol by half. Take 1/2 tablet a day. Contact your primary doctor/help desk manager for a follow-up. Return to the emergency department for any new or worsening symptoms. Prescriptions: No Action atorvastatin 80 mg tablet 80 mg PO DAILY 0RF nitroglycerin 0.4 mg tablet, sublingual 0.4 mg sublingual Q5M [id number] Rx Instructions: do not exceed 3 doses per episode metoprolol succinate 25 mg capsule,sprsaray,ER 24hr 25 mg PO DAILY 0RF prasugrel 10 mg tablet 10 mg PO DAILY 0RF amlodipine 10 mg tablet 10 mg PO QAM Qty: 90 1RF indomethacin 50 mg capsule See Rx Instructions .ROUTE .COMPLEX Qty: 30 0RF Dose Instruction: TAKE ONE CAPSULE BY MOUTH THREE TIMES DAILY NEEDED GOUT Rx Instructions: TAKE ONE CAPSULE BY MOUTH THREE TIMES DAILY NEEDED GOUT cholecalciferol (vitamin D3) 250 mcg (10,000 unit) capsule 250 mcg PO QAM 0RF ascorbate calcium (vitamin C) 500 mg tablet 500 mg PO BID 0RF [id number]-[id number]-hyaluron ac [id number] mg tablet 1 tab PO BID 0RF esomeprazole magnesium 20 mg capsule,delayed release(DR/EC) 20 mg PO QAM 0RF dutasteride 0.5 mg capsule 0.5 mg PO QAM 0RF losartan 50 mg tablet 50 mg PO QAM 0RF potassium chloride 10 mEq tablet extended release 10 meq PO QAM 0RF tamsulosin [Flomax] 0.4 mg capsule 0.4 mg PO QAM 0RF Referrals: Irwin Amador DO [Primary Care Provider] -
[2021-09-12 07:29] VITALS: BP 122/68; PULSE 46; RESP 16; TEMP 36.6; O2SAT 97; BMI 23.7
[2021-09-12 07:39] LABS: Add Manual Diff / Slide Review NO; Basophils Absolute Auto 100 /uL (0-100); Eosinophils Absolute Auto 200 /uL (0-450); Hemoglobin 13.2 g/dL (13.5-17.5); Lymphocytes Absolute Auto 1300 /uL (1100-4500); Lymphocytes Percent Auto 23.9 % (25-40); Mean Corpuscular HGB Conc 33.9 % (30-36); Mean Corpuscular Hemoglobin 28.4 PG (26-34); Mean Corpuscular Volume 83.8 fL (80-100); Monocytes Absolute Auto 600 /uL (0-900); Neutrophils Absolute Auto 3500 /uL (1500-7000); Neutrophils Percent Auto 62.1 % (50-75); Platelet Count 199 X10^3/uL (150-400); Red Blood Cell Count 4.66 X10^6/uL (4.5-5.9); Red Cell Distribution Width 14.1 % (11.6-14.8); White Blood Cell Count 5.6 X10^3/uL (4.5-11.0)
[2021-09-12 07:55] LABS: Alanine Aminotransferase 27 IU/L (<50); Albumin Globulin Ratio 1.6 (1.0-2.8); Alkaline Phosphatase 65 U/L (38-126); Aspartate Aminotransferase 50 IU/L (17-59); BUN Creatinine Ratio 17.5 (6-22); Bilirubin Total 0.8 mg/dL (0.2-1.3); Blood Urea Nitrogen 18 mg/dL (9-20); Calcium 9.1 mg/dL (8.4-10.2); Carbon Dioxide 27 mmol/L (22-32); Chloride 104 mmol/L (98-107); Creatine Kinase 97 U/L (55-170); Estimated Glomerular Filt Rate > 60.0 mL/min (>60); Globulin 2.5 g/dL (1.7-4.1); Glucose 124 mg/dL (80-110); HEMOLYSIS 38 (0-50); Lipase 28 U/L (23-300); Potassium 2.9 mmol/L (3.4-5.1); Sodium 139 mmol/L (137-145); Total Protein 6.5 g/dL (6.3-8.2)
[2021-09-12 08:06] LABS: Troponin I 0.035 ng/mL (0.01-0.034)
[2021-09-12 08:21] LABS: Influenza A - CEPHEID Flu A NEGATIVE (NEGATIVE); Influenza B - CEPHEID Flu B NEGATIVE (NEGATIVE)
[2021-09-12 08:23] LABS: Thyroid Stimulating Hormone 2.46 uIU/mL (0.47-4.68)
[2021-09-12 08:44] LABS: COVID19 -Nasal RAPID Negative (Negative)
[2021-09-12 09:30] LABS: Bacteria Urine Occasional (0-1); Culture Indicated Urine Cult Not Indicated; Hyaline Casts Urine 0-1/LPF; RBC Urine 0-1/HPF (0-5/HPF); WBC Urine 0-1/HPF (0-5/HPF)
[2021-09-12 09:41] VITALS: BP 129/66; PULSE 45; RESP 16; O2SAT 97
[2021-09-12 10:00] VITALS: BP 127/70; PULSE 46; RESP 21; O2SAT 97
[2021-09-12 10:15] LABS: Troponin I 0.032 ng/mL (0.01-0.034)
[2021-09-12 10:30] VITALS: BP 129/74; PULSE 48; RESP 17; O2SAT 99
[2021-09-12 11:00] VITALS: BP 135/76; PULSE 56; RESP 28; O2SAT 96
== END 2021-09-12 11:18 | disposition home or self-care (01) ==
PROVIDERS: Emergency Provider Emergency Medicine; PCP Family Medicine
DX: R07.89 Other chest pain (principal); R00.1 Bradycardia, unspecified; Z20.822 Contact with and (suspected) exposure to COVID-19
CPT/HCPCS: 36415; 80053; 81003; 81015; 82550; 83690; 84443; 84484; 85025; 87502; 87635; 93005; 93010; 99284; C9803

== ENCOUNTER → 2021-10-12 07:00 | Outpatient (CLI) | payer MEDICARE, OTHER, SELFPAY ==
[2021-10-12 08:59] LABS: Alanine Aminotransferase 24 IU/L (<50); Aspartate Aminotransferase 32 IU/L (17-59); Cholesterol 139 mg/dL (140-199); HDL Cholesterol 58 mg/dL (40-60); LDL Cholesterol Calculated 72 mg/dL (<100); Triglycerides 46 mg/dL (35-150)
[2021-10-14 09:45] LABS: BUN Creatinine Ratio 15.3 (6-22); Blood Urea Nitrogen 15 mg/dL (9-20); Calcium 9.5 mg/dL (8.4-10.2); Carbon Dioxide 31 mmol/L (22-32); Chloride 104 mmol/L (98-107); Estimated Glomerular Filt Rate > 60.0 mL/min (>60); Glucose 93 mg/dL (80-110); HEMOLYSIS < 15 (0-50); Potassium 3.7 mmol/L (3.4-5.1); Sodium 140 mmol/L (137-145)
== END ==
PROVIDERS: PCP Family Medicine; Referring Provider Internal Medicine Cardiovascular Disease; Visit Provider Internal Medicine Cardiovascular Disease
DX: E78.5 Hyperlipidemia, unspecified (principal)
CPT/HCPCS: 36415; 80048; 80061; 84450; 84460

== ENCOUNTER 2021-10-20 08:49 | Emergency (ER) | payer MEDICARE, OTHER, SELFPAY ==
[2021-10-20] VITALS (51 sets, daily range): BP systolic 131–196; BP diastolic 67–102; PULSE 42–57; RESP 9–38; TEMP 36.7; O2SAT 95–99; BMI 23.4
--- NOTE | 2021-10-20 08:56 | DI.RAD.S_ITS ---
PROCEDURE: XR CHEST 1V INDICATIONS: chest pain TECHNIQUE: One view of the chest was acquired. COMPARISON: [facility], CR, XR CHEST 1V, 07/10/2021, 9:54. FINDINGS: Surgical changes and devices: None. Lungs and pleura: Lungs are clear. No pleural effusions or pneumothorax. Mediastinum: Mediastinal contours appear normal. Heart size is normal. Bones and chest wall: No suspicious bony lesions. Overlying soft tissues appear unremarkable. IMPRESSION: No acute process. Dictated by: Miya Keith M.D. on 10/20/2021 at 9:13 Approved by: Miya Keith M.D. on 10/20/2021 at 9:13
--- NOTE | 2021-10-20 09:20 | ED_ITS ---
HPI - Chest Pain General Chief Complaint: Chest Pain Stated Complaint: chest pain Time Seen by Provider: 10/20/21 09:04 History of Present Illness HPI narrative: 71-year-old male nonsmoker with history of coronary artery disease status post multiple stents, hypertension and hyperlipidemia presents from cardiac rehab with a chief complaint of elevated blood pressure in the 190s over 100 stomach left-sided chest pressure. He states that it has been present for the past 45 days. He denies any provocation or palliation. He states that it is a squeezing and heaviness and rates it 3/10. He denies associated symptoms such as headache, blurred vision nor shortness of breath. He denies nausea, vomiting or diarrhea. He denies any exertional component to his symptoms and states he tori mary is feeling well. He denies any changes medications, missed doses or new diet. Related Data Home Medications Medication Instructions Recorded Confirmed ascorbate calcium (vitamin C) 500 500 mg PO BID 07/07/20 10/21/21 mg tablet cholecalciferol (vitamin D3) 250 250 mcg PO QAM 07/07/20 10/21/21 mcg (10,000 unit) capsule glucosamine 750 mg-MSM 60 1 tab PO BID 07/07/20 10/21/21 mg-chondroit 150 mg-hyaluron ac 1 mg tablet dutasteride 0.5 mg capsule 0.5 mg PO QAM 07/10/21 10/21/21 esomeprazole magnesium 20 mg 20 mg PO QAM 07/10/21 10/21/21 capsule,delayed release losartan 50 mg tablet 50 mg PO QAM 07/10/21 10/21/21 tamsulosin 0.4 mg capsule (Flomax) 0.4 mg PO QAM 07/10/21 10/21/21 atorvastatin 80 mg tablet 80 mg PO DAILY 07/25/21 10/21/21 metoprolol succinate 25 mg capsule 25 mg PO DAILY 07/25/21 10/21/21 sprinkle, ext. release 24 hr nitroglycerin 0.4 mg sublingual 0.4 mg SUBLINGUAL Q5M PRN 07/25/21 10/21/21 tablet prasugrel 10 mg tablet 10 mg PO DAILY 07/25/21 10/21/21 potassium chloride 10 mEq 60 meq PO QAM tab 10/21/21 10/21/21 tablet,extended release Previous Rx's Medication Instructions Recorded amlodipine 10 mg tablet 10 mg PO QAM #90 tab 08/08/21 indomethacin 50 mg capsule See Rx Instructions .ROUTE 08/12/21 .COMPLEX #30 cap Allergies Allergy/AdvReac Type Severity Reaction Status Date / Time latex Allergy Rash Verified 10/21/21 13:34 Review of Systems Review of Systems Narrative: GENERAL: Denies chills, fatigue, malaise, fever, sweats. HEENT: Denies sinus pain, ear pain, sore throat, difficulty swallowing, dizziness. RESPIRATORY: Denies dyspnea, cough, wheezing, hemoptysis, sputum. CARDIOVASCULAR: See HPI GASTROINTESTINAL: Denies nausea, vomiting, abdominal pain, diarrhea, constipation, melena. : Denies dysuria, frequency, incontinence, hematuria, urinary retention. MUSCULOSKELETAL: denies weakness, joint pain, or bony pain SKIN: Denies rash, skin lesions, or other NEUROLOGIC: Denies weakness, headache, numbness, change in speech, confusion, seizures, incoordination. PSYCHIATRIC: No concerning psychosocial issues. 12 point review of systems is negative except for those stated above Patient History Medical History (Updated 10/21/21 @ 17:16 by Irwin Amador DO) Abdominal bloating Actinic keratoses Adverse reaction to antibiotic Anxiety about health Aortic aneurysm, abdominal Aortic regurgitation (1994) Benign prostatic hyperplasia BRBPR (bright red blood per rectum) Cardiac arrhythmia Cerumen impaction Cervical somatic dysfunction Chronic pain of left ankle Chronic right shoulder pain Chronic thoracic back pain Constipation Cranial somatic dysfunction Elevated PSA Fecal incontinence Frequent loose stools Gallbladder polyp GERD (gastroesophageal reflux disease) Gluten enteropathy Gout Hiatal hernia Hypothyroidism Low testosterone Lumbar region somatic dysfunction Medication side effects present Onychomycosis Other stressful life events affecting family and household Pancreatitis Pelvic somatic dysfunction Renal cyst Resistant hypertension Sacral region somatic dysfunction Scoliosis Scoliosis of thoracic spine Segmental and somatic dysfunction of abdomen and other regions Segmental and somatic dysfunction of rib cage Segmental and somatic dysfunction of upper extremity Shoulder pain Skin rash Sleep disorder Somatic dysfunction of lower extremity Stiff neck Stress due to illness of family member Thoracic region somatic dysfunction Surgical History Anesthesia Ankle fracture (1978) History of eyelid surgery (2016) History of pancreatic surgery (1994) Family History Brother Age: 65 No problems noted. Father Heart disease Mental health problem Smoker Alcoholic Brother No problems noted. Grandfather Cancer Grandmother No problems noted. Mother No problems noted. Grandfather Fall from roof Grandmother Cancer Sister Overweight Sister No problems noted. Social History marital status: number of children: 0 household members: none lives independently: Yes caregiver/support person: No housing: house Smoking Status: Never smoker second hand exposure: No alcohol intake: never substance use type: does not use Smoking Status: Never smoker alcohol intake frequency: 0-2 drinks per day Substance Use Type: does not use Exam Narrative Exam Narrative: GENERAL: [71] year old patient appears stated age. Well-developed patient, in mild distress. HEAD: Atraumatic. Normocephalic. EYES: Pupils equal round and reactive. Extraocular motions intact. No scleral icterus. No injection or drainage. ENT: Nose without bleeding, purulent drainage. Throat without erythema, tonsillar hypertrophy or exudate. Airway patent. NECK: Trachea midline. Non tender CARDIOVASCULAR: Regular rate and rhythm without murmurs, gallops, or rubs. RESPIRATORY: Clear to auscultation. Breath sounds equal bilaterally. No wheezes, rales, or rhonchi. GASTROINTESTINAL: Abdomen soft, non-tender, nondistended. EXTREMITIES: No edema or joint tenderness. BACK: Nontender without deformity or crepitance. No flank tenderness. NEURO: AOx3. SKIN: No rash or erythema of visible areas Initial Vital Signs Initial Vital Signs: Vital Signs Temperature 98.0 F 10/20/21 08:55 Pulse Rate 53 L 10/20/21 08:55 Respiratory Rate 16 10/20/21 08:55 Blood Pressure 196/102 H 10/20/21 08:55 Pulse Oximetry 96 10/20/21 08:55 Course Orders Ordered: Discontinued Medications Sodium Chloride (Normal Saline 0.9%) 1,000 mls @ 150 mls/hr IV CONT RUPERT Last Infusion: 10/20/21 12:48 Dose: 0 mls/hr Documented by: Admin: 10/20/21 10:21 Dose: 150 mls/hr Documented by: BTONER Nitroglycerin (Nitroglycerin 0.4 Mg Sl Tab) 0.4 mg SL [id number] PRN PRN Reason: Chest Pain Last Admin: 10/20/21 10:37 Dose: 0.4 mg Documented by: Admin: 10/20/21 10:16 Dose: 0.4 mg Documented by: BTONER Reevaluation(s) Reevaluation #1: near complete resolution with improvement of BP to the 180s Time: 09:45 Vital Signs Vital signs: Vital Signs - 8 hr 10/20/21 08:55 10/20/21 10:16 10/20/21 10:37 Temperature 98.0 F Pulse Rate 53 L 51 L 47 L Respiratory Rate 16 Blood Pressure 196/102 H 181/76 H 152/82 H Pulse Oximetry 96 MDM - Chest Pain Lab Data Result diagrams: 10/20/21 09:10 10/20/21 09:10 Labs: Lab Results 10/20/21 10/20/21 10/20/21 Range/Units 09:10 09:10 11:10 WBC 4.7 (4.5-11.0) X10^3/uL RBC 4.73 (4.5-5.9) X10^6/uL Hgb 13.5 (13.5-17.5) g/dL Hct 40.0 L (41-53) % MCV 84.5 (80-100) fL MCH 28.6 (26-34) PG MCHC 33.8 (30-36) % RDW 14.5 (11.6-14.8) % Plt Count 155 (150-400) X10^3/uL Neut % (Auto) 72.5 (50-75) % Lymph % (Auto) 17.4 L (25-40) % [place] % (Auto) 8.9 (3-14) % Eos % (Auto) 0.8 L (2-4) % Baso % (Auto) 0.4 (0-2) % Neut # (Auto) 3400 (2911-2553) /uL Lymph # (Auto) 800 L (6182-6156) /uL [place] # (Auto) 400 (0-900) /uL Eos # (Auto) 0 (0-450) /uL Baso # (Auto) 0 (0-100) /uL Sodium 140 (137-145) mmol/L Potassium 3.5 (3.4-5.1) mmol/L Chloride 103 (98-107) mmol/L Carbon Dioxide 31 (22-32) mmol/L BUN 17 (9-20) mg/dL Creatinine 1.06 (0.66-1.25) mg/dL Estimated GFR > 60.0 (>60) mL/min BUN/Creatinine Ratio 16.0 (6-22) Glucose 135 H (80-110) mg/dL Calcium 9.1 (8.4-10.2) mg/dL Total Bilirubin 0.9 (0.2-1.3) mg/dL AST 31 (17-59) IU/L ALT 25 (<50) IU/L Alkaline Phosphatase 74 (38-126) U/L Total Creatine Kinase 84 73 (55-170) U/L CK-MB (CK-2) TNP TNP CK-MB (CK-2) Rel Index TNP TNP Troponin I 0.026 0.023 (0.01-0.034) ng/mL NT-Pro-B Natriuret Pep 3600 H (<125) pg/mL Total Protein 6.7 (6.3-8.2) g/dL Albumin 4.2 (3.5-5.0) g/dL Globulin 2.5 (1.7-4.1) g/dL Albumin/Globulin Ratio 1.7 (1.0-2.8) Lipase 30 (23-300) U/L Imaging Data Chest x-ray: My Impression: Segun Hernandez??71??M??1950 ? Allergy/Adv: latex Close Chest X-Ray (Signed) Miya Keith - 10/20/21 Chest/Abdomen/Pelvis CTA (Signed) Cecy Velarde - 07/18/21 Chest X-Ray (Signed) Roland Evans - 07/10/21 Abdomen Ultrasound (Signed) Denis Mata - 12/10/19 Finger X-Ray (Signed) Samson Campo - 08/27/19 Outside DI 08/01/19 Knee X-Ray (Signed) Zach De Santiago - 06/25/19 Ankle X-Ray (Signed) Zach De Santiago - 06/25/19 Abdomen/Pelvis CT (Signed) Miya Keith - 03/01/18 Chest/Abdomen X-ray (Signed) Samson Campo - 02/28/18 DI Result 02/28/18 Launch?Image [address] [address] XRay Report Signed Patient: Segun Hernandez MR#: [id number] : 1950 Acct:[id number] Age/Sex: 71 / M Date of Service: 10/20/21 Loc: ED Accession Number: [id number] ?? Procedure: XR chest 1V Ordering Provider: Yuri Pereira D.O. PROCEDURE:? XR CHEST 1V ? INDICATIONS:? chest pain ? TECHNIQUE:? One view of the chest was acquired.? ? COMPARISON:? [facility], CR, XR CHEST 1V, 07/10/2021, 9:54. ? FINDINGS:? ? Surgical changes and devices:? None.? ? Lungs and pleura:? Lungs are clear.? No pleural effusions or pneumothorax.? ? Mediastinum:? Mediastinal contours appear normal.? Heart size is normal.? ? Bones and chest wall:? No suspicious bony lesions.? Overlying soft tissues appear unremarkable.? ? IMPRESSION:? No acute process. ? ? Dictated by: Miya Keith M.D. on 10/20/2021 at 9:13 ? ? Approved by: Miya Keith M.D. on 10/20/2021 at 9:13 ? MDM Narrative Medical decision making narrative: Multiple causes of chest pain considered including NE, PE, pneumothorax, pneumonia, aortic dissection, and pleurisy. Patient reports no radiation, no diaphoresis, no provocation with exertion, and no vomiting Patient's symptoms improved over duration of stay with above-stated therapies. Findings and discharge diagnosis discussed with patient/family followed by verbalization of understanding Return precautions discussed with patient/family whom verbalize understanding. Discharge Plan Departure Patient Disposition: Home Clinical Impression: Atypical chest pain Instructions: Essential Hypertension, DI for Atypical Chest Pain Activity Restrictions/Additional Instructions: *You have been diagnosed with [chest pain, likely due in part to high blood pressure and possibly some GI component. Your EKGs and blood work as well as history and physical exam are very reassuring. Also, her chest pain improved along with your blood pressure *What to do: *Please continue to take your regular medications as directed. [ ] New medication prescriptions sent to your pharmacy: [ ] [ ] New medication written as a paper prescription [ x] No new medications given *Please follow up with your primary care provider in 2-3 days, call for an appointment. Let them know you were seen in the Emergency Department and that we ask that you be seen in follow up. We will electronically transmit a record of today's note if your PCP is in our system *If you do not have a primary care provider please contact the [facility] Resource line at [phone]. They will ask some questions about your medical history and help get you set up with a doctor in the community. *Return to Emergency Department if you should have any new, worsening or concerning symptoms, such as [fever greater than 101 F, shaking chills, worsening pain, persistent vomiting or other bothersome symptoms] Prescriptions: No Action atorvastatin 80 mg tablet 80 mg PO DAILY 0RF nitroglycerin 0.4 mg tablet, sublingual 0.4 mg sublingual Q5M PRN0RF Rx Instructions: do not exceed 3 doses per episode metoprolol succinate 25 mg capsule,sprinkle,ER 24hr 25 mg PO DAILY 0RF prasugrel 10 mg tablet 10 mg PO DAILY 0RF amlodipine 10 mg tablet 10 mg PO QAM Qty: 90 1RF indomethacin 50 mg capsule See Rx Instructions .ROUTE .COMPLEX Qty: 30 0RF Dose Instruction: TAKE ONE CAPSULE BY MOUTH THREE TIMES DAILY NEEDED GOUT Rx Instructions: TAKE ONE CAPSULE BY MOUTH THREE TIMES DAILY NEEDED GOUT cholecalciferol (vitamin D3) 250 mcg (10,000 unit) capsule 250 mcg PO QAM 0RF ascorbate calcium (vitamin C) 500 mg tablet 500 mg PO BID 0RF xtohzmgi-NWX-rqbms-hyaluron ac 157-38-051-1 mg tablet 1 tab PO BID 0RF potassium chloride 10 mEq tablet extended release 60 meq PO QAM 0RF esomeprazole magnesium 20 mg capsule,delayed release(DR/EC) 20 mg PO QAM 0RF dutasteride 0.5 mg capsule 0.5 mg PO QAM 0RF losartan 50 mg tablet 50 mg PO QAM 0RF tamsulosin [Flomax] 0.4 mg capsule 0.4 mg PO QAM 0RF Referrals: Irwin Amador DO [Primary Care Provider] -
[2021-10-20 09:30] LABS: Add Manual Diff / Slide Review NO; Basophils Absolute Auto 0 /uL (0-100); Basophils Percent Auto 0.4 % (0-2); Eosinophils Absolute Auto 0 /uL (0-450); Eosinophils Percent Auto 0.8 % (2-4); Hemoglobin 13.5 g/dL (13.5-17.5); Lymphocytes Absolute Auto 800 /uL (1100-4500); Lymphocytes Percent Auto 17.4 % (25-40); Mean Corpuscular HGB Conc 33.8 % (30-36); Mean Corpuscular Hemoglobin 28.6 PG (26-34); Mean Corpuscular Volume 84.5 fL (80-100); Monocytes Absolute Auto 400 /uL (0-900); Monocytes Percent Auto 8.9 % (3-14); Neutrophils Absolute Auto 3400 /uL (1500-7000); Neutrophils Percent Auto 72.5 % (50-75); Platelet Count 155 X10^3/uL (150-400); Red Blood Cell Count 4.73 X10^6/uL (4.5-5.9); Red Cell Distribution Width 14.5 % (11.6-14.8); White Blood Cell Count 4.7 X10^3/uL (4.5-11.0)
[2021-10-20 09:39] LABS: Alanine Aminotransferase 25 IU/L (<50); Albumin 4.2 g/dL (3.5-5.0); Albumin Globulin Ratio 1.7 (1.0-2.8); Alkaline Phosphatase 74 U/L (38-126); Aspartate Aminotransferase 31 IU/L (17-59); Bilirubin Total 0.9 mg/dL (0.2-1.3); Blood Urea Nitrogen 17 mg/dL (9-20); Calcium 9.1 mg/dL (8.4-10.2); Carbon Dioxide 31 mmol/L (22-32); Chloride 103 mmol/L (98-107); Creatine Kinase 84 U/L (55-170); Estimated Glomerular Filt Rate > 60.0 mL/min (>60); Globulin 2.5 g/dL (1.7-4.1); Glucose 135 mg/dL (80-110); HEMOLYSIS < 15 (0-50); Lipase 30 U/L (23-300); Potassium 3.5 mmol/L (3.4-5.1); Sodium 140 mmol/L (137-145); Total Protein 6.7 g/dL (6.3-8.2)
[2021-10-20 09:51] LABS: NT-proBNP (BNP-Adult 18+) 3600 pg/mL (<125); Troponin I 0.026 ng/mL (0.01-0.034)
[2021-10-20] MEDS: NITROGLYCERIN 0.4 MG SL TAB SL ×2 (10:16→10:37)
[2021-10-20] MEDS: SODIUM CHLORIDE 0.9% 1,000 ML 150 ML IV (10:21)
[2021-10-20 11:33] LABS: Creatine Kinase 73 U/L (55-170)
[2021-10-20 11:45] LABS: Troponin I 0.023 ng/mL (0.01-0.034)
== END 2021-10-20 12:58 | disposition home or self-care (01) ==
PROVIDERS: Emergency Provider Emergency Medicine; PCP Family Medicine
DX: R07.89 Other chest pain (principal)
CPT/HCPCS: 36415; 71045; 80053; 82550; 83690; 83880; 84484; 85025; 93005; 93010; 96360; 96361; 99284

== ENCOUNTER → 2021-10-21 14:09 | Outpatient (CLI) | payer MEDICARE, OTHER, SELFPAY ==
[2021-10-27 09:12] LABS: Aldosterone/Renin Activity Rat 71.3 (0.0-30.0); Plama Renin, LC/MS/MS 0.244 ng/mL/hr (0.167-5.380)
== END ==
PROVIDERS: PCP Family Medicine; Referring Provider Family Medicine; Visit Provider Family Medicine
DX: E87.6 Hypokalemia (principal); I10 Essential (primary) hypertension
CPT/HCPCS: 36415; 82088; 84244

== ENCOUNTER 2021-10-28 20:48 | Emergency (ER) | payer MEDICARE, OTHER, SELFPAY ==
[2021-10-28 21:02] VITALS: BP 165/87; PULSE 74; RESP 18; TEMP 36.6; O2SAT 98; BMI 23.4
--- NOTE | 2021-10-28 21:05 | DI.RAD.S_ITS ---
PROCEDURE: XR WRIST LT MIN 3V INDICATIONS: Fell on wrist/hands, pain TECHNIQUE: 3 views of the wrist were acquired. COMPARISON: None. FINDINGS: Bones: No fractures or dislocations. No suspicious bony lesions. Macrophage carpometacarpal Scaphoid view: Not done. Soft tissues: No suspicious soft tissue calcifications. IMPRESSION: No displaced fractures are seen. However, a scaphoid view was not done. If there is snuffbox tenderness (or other clinical suspicion for a scaphoid fracture) please return this patient to Radiology. A scaphoid view will be performed at no additional charge to the patient, with an addendum issued to this report. If there is point tenderness (or other clinical suspicion for a fracture not seen elsewhere on these images) then a dedicated CT could be considered for further evaluation, if clinically appropriate. Dictated by: Roland Evans M.D. on 10/28/2021 at 20:26 Approved by: Roland Evans M.D. on 10/28/2021 at 20:28
--- NOTE | 2021-10-28 22:23 | ED_ITS ---
HPI - Extremity Injury (Upper) General Chief Complaint: Extremity Injury, Upper Stated Complaint: LEFT WRIST INJURY Time Seen by Provider: 10/28/21 22:22 Source: patient Mode of arrival: Ambulatory History of Present Illness HPI narrative: Patient is a 71-year-old male history of coronary artery disease status post multiple stents hypertension, hyperlipidemia who presents with left wrist pain. He states he slipped and fell in the driveway today. He caught his fall with both hands. However left wrist seems to hurt the most. He continued of increased pain throughout the day no numbness tingling or weakness. Ice seems to help Related Data Home Medications Medication Instructions Recorded Confirmed ascorbate calcium (vitamin C) 500 500 mg PO BID 07/07/20 10/21/21 mg tablet cholecalciferol (vitamin D3) 250 250 mcg PO QAM 07/07/20 10/21/21 mcg (10,000 unit) capsule glucosamine 750 mg-MSM 60 1 tab PO BID 07/07/20 10/21/21 mg-chondroit 150 mg-hyaluron ac 1 mg tablet dutasteride 0.5 mg capsule 0.5 mg PO QAM 07/10/21 10/21/21 esomeprazole magnesium 20 mg 20 mg PO QAM 07/10/21 10/21/21 capsule,delayed release losartan 50 mg tablet 50 mg PO QAM 07/10/21 10/21/21 tamsulosin 0.4 mg capsule (Flomax) 0.4 mg PO QAM 07/10/21 10/21/21 atorvastatin 80 mg tablet 80 mg PO DAILY 07/25/21 10/21/21 metoprolol succinate 25 mg capsule 25 mg PO DAILY 07/25/21 10/21/21 sprinkle, ext. release 24 hr nitroglycerin 0.4 mg sublingual 0.4 mg SUBLINGUAL Q5M PRN 07/25/21 10/21/21 tablet prasugrel 10 mg tablet 10 mg PO DAILY 07/25/21 10/21/21 potassium chloride 10 mEq 60 meq PO QAM tab 10/21/21 10/21/21 tablet,extended release Previous Rx's Medication Instructions Recorded amlodipine 10 mg tablet 10 mg PO QAM #90 tab 08/08/21 indomethacin 50 mg capsule See Rx Instructions .ROUTE 08/12/21 .COMPLEX #30 cap Allergies Allergy/AdvReac Type Severity Reaction Status Date / Time latex Allergy Rash Verified 10/21/21 13:34 Review of Systems Review of Systems Narrative: GENERAL: Denies chills,fever HEENT: Denies throat pain RESPIRATORY: Denies dyspnea, cough, wheezing CARDIOVASCULAR: Denies chest pain, palpitations GASTROINTESTINAL: Denies nausea, vomiting MUSCULOSKELETAL: See HPI SKIN: No rash, no laceration, no pruritus NEUROLOGIC: Denies weakness, dizziness, headache, numbness 8 point review of systems is negative except for those stated above and HPI Patient History Medical History (Updated 10/28/21 @ 22:45 by Mima Bustamante DO) Abdominal bloating Actinic keratoses Adverse reaction to antibiotic Anxiety about health Aortic aneurysm, abdominal Aortic regurgitation (1994) Benign prostatic hyperplasia BRBPR (bright red blood per rectum) Cardiac arrhythmia Cerumen impaction Cervical somatic dysfunction Chronic pain of left ankle Chronic right shoulder pain Chronic thoracic back pain Constipation Cranial somatic dysfunction Elevated PSA Fecal incontinence Frequent loose stools Gallbladder polyp GERD (gastroesophageal reflux disease) Gluten enteropathy Gout Hiatal hernia Hypothyroidism Low testosterone Lumbar region somatic dysfunction Medication side effects present Onychomycosis Other stressful life events affecting family and household Pancreatitis Pelvic somatic dysfunction Renal cyst Resistant hypertension Sacral region somatic dysfunction Scoliosis Scoliosis of thoracic spine Segmental and somatic dysfunction of abdomen and other regions Segmental and somatic dysfunction of rib cage Segmental and somatic dysfunction of upper extremity Shoulder pain Skin rash Sleep disorder Somatic dysfunction of lower extremity Stiff neck Stress due to illness of family member Thoracic region somatic dysfunction Surgical History Anesthesia Ankle fracture (1978) History of eyelid surgery (2016) History of pancreatic surgery (1994) Family History Brother Age: 65 No problems noted. Father Heart disease Mental health problem Smoker Alcoholic Brother No problems noted. Grandfather Cancer Grandmother No problems noted. Mother No problems noted. Grandfather Fall from roof Grandmother Cancer Sister Overweight Sister No problems noted. Social History marital status: number of children: 0 household members: none lives independently: Yes caregiver/support person: No housing: house Smoking Status: Never smoker second hand exposure: No alcohol intake: never substance use type: does not use Smoking Status: Never smoker alcohol intake frequency: 0-2 drinks per day Substance Use Type: does not use Exam Initial Vital Signs Initial Vital Signs: Vital Signs Temperature 98 F 10/28/21 21:02 Pulse Rate 74 10/28/21 21:02 Respiratory Rate 18 10/28/21 21:02 Blood Pressure 165/87 H 10/28/21 21:02 Pulse Oximetry 98 10/28/21 21:02 GENERAL: Alert well-appearing 71-year-old male CARDIOVASCULAR: peripheral pulses in tact, cap refill <2 sec RESPIRATORY: No respiratory distress, speaks in full sentences without difficulty EXTREMITIES: Normal range of motion, no clubbing or edema. Neurovascularly inta ct Minimal left wrist swelling no elbow shoulder or clavicle pain. Distal radial pulse intact moving all fingers. NEUROLOGICAL: Cranial nerves II through XII grossly intact. Normal gait and speech. SKIN: Warm, dry, no petechiae, no rashes or lesions. Course Orders Ordered: ED Orders 10/28/21 21:05 XR wrist LT min 3V Stat Discontinued Medications Hydrocodone Bitart/Acetaminophen (Hydrocodone/Acet 5/325 Prepack) 1 bottle MISC SEEINSTR ONE Stop: 10/28/21 22:47 Last Admin: 10/28/21 22:54 Dose: 1 bottle Documented by: LEISA Vital Signs Vital signs: Vital Signs - 8 hr 10/28/21 21:02 10/28/21 23:12 Temperature 98 F Pulse Rate 74 85 Respiratory Rate 18 18 Blood Pressure 165/87 H 145/75 H Pulse Oximetry 98 99 MDM - Extremity Injury (Upper) Imaging Data Extremity x-ray #1: Radiologist's Impression: PROCEDURE:? XR WRIST LT MIN 3V ? INDICATIONS: Fell on wrist/hands, pain ? TECHNIQUE:? 3 views of the wrist were acquired.? ? COMPARISON:? None. ? FINDINGS:? ? Bones:? No fractures or dislocations.? No suspicious bony lesions.? Macrophage carpometacarpal ? Scaphoid view:? Not done.? ? Soft tissues:? No suspicious soft tissue calcifications.? ? ? IMPRESSION:? No displaced fractures are seen.? However, a scaphoid view was not done. ? If there is snuffbox tenderness (or other clinical suspicion for a scaphoid fracture) please return this patient to Radiology.? A scaphoid view will be performed at no additional charge to the patient, with an addendum issued to this report. ? If there is point tenderness (or other clinical suspicion for a fracture not seen elsewhere on these images) then a dedicated CT could be considered for further evaluation, if clinically appropriate. ? ? Dictated by: Roland Evans M.D. on 10/28/2021 at 20:26 ? ? Discharge Plan Departure Patient Disposition: Home Clinical Impression: Sprain of left wrist Instructions: DI for Wrist Sprain Activity Restrictions/Additional Instructions: *You have been diagnosed with left wrist sprain *What to do: At this time x-ray is negative. Wear brace as needed. If still having severe pain in 7-10 days may require repeat next week. Elevate and ice as needed *Continue to take medications as directed 1 tablet every 6 hours if needed for severe Tylenol 650 mg every 4 hours *Follow up with your primary care provider in 2-3 days or call [phone] *Return to ER if you should have increasing pain, numbness, tingling, redness or any new, worsening or concerning symptoms CONTROLLED SUBSTANCE DISCHARGE (Narcotoic/benzodiazepine/Flexeril/Phenergan) 1. You have been prescribed narcotic medications, it does have acetaminophen/Tylenol/paracetamol in it, DO NOT TAKE MORE THAN 4,00mg in 24 hours of Tylenol. TRAMADOL DOES NOT CONTAIN TYLENOL 2. Please understand that we cannot provide further refills of narcotics, benzodiazepines or controlled substances through the ED and her pain management will need to be through your provider. 3. While on these medications you cannot drive or operate heavy machinery. 4. You cannot sign legal documents or perform any duties such as this. 5. As long as you're taking opiate pain medications he should also be taking a stool softener such as Colace, Dulcolax, MiraLAX or prune juice, to help avoid constipation. Prescriptions: No Action atorvastatin 80 mg tablet 80 mg PO DAILY 0RF nitroglycerin 0.4 mg tablet, sublingual 0.4 mg sublingual Q5M PRN0RF Rx Instructions: do not exceed 3 doses per episode metoprolol succinate 25 mg capsule,sprinkle,ER 24hr 25 mg PO DAILY 0RF prasugrel 10 mg tablet 10 mg PO DAILY 0RF amlodipine 10 mg tablet 10 mg PO QAM Qty: 90 1RF indomethacin 50 mg capsule See Rx Instructions .ROUTE .COMPLEX Qty: 30 0RF Dose Instruction: TAKE ONE CAPSULE BY MOUTH THREE TIMES DAILY NEEDED GOUT Rx Instructions: TAKE ONE CAPSULE BY MOUTH THREE TIMES DAILY NEEDED GOUT cholecalciferol (vitamin D3) 250 mcg (10,000 unit) capsule 250 mcg PO QAM 0RF ascorbate calcium (vitamin C) 500 mg tablet 500 mg PO BID 0RF hxaltfbv-YYY-nkoej-hyaluron ac [id number] mg tablet 1 tab PO BID 0RF potassium chloride 10 mEq tablet extended release 60 meq PO QAM 0RF esomeprazole magnesium 20 mg capsule,delayed release(DR/EC) 20 mg PO QAM 0RF dutasteride 0.5 mg capsule 0.5 mg PO QAM 0RF losartan 50 mg tablet 50 mg PO QAM 0RF tamsulosin [Flomax] 0.4 mg capsule 0.4 mg PO QAM 0RF Referrals: Irwin Amador DO [Primary Care Provider] -
[2021-10-28] MEDS: HYDROCODONE/ACET 5/325 PREPACK 1 BOTTLE MISC (22:54)
[2021-10-28 23:12] VITALS: BP 145/75; PULSE 85; RESP 18; O2SAT 99
== END 2021-10-28 23:13 | disposition home or self-care (01) ==
PROVIDERS: Emergency Provider Emergency Medicine; PCP Family Medicine
DX: S63.502A Unspecified sprain of left wrist, initial encounter (principal); W01.0XXA Fall on same level from slipping, tripping and stumbling without subsequent striking against object, initial encounter; Y92.89 Other specified places as the place of occurrence of the external cause
CPT/HCPCS: 73110; 99282; 99283

== ENCOUNTER 2021-11-21 08:30 | Outpatient (RCR) | payer MEDICARE, OTHER, SELFPAY | END 2021-11-21 10:30 | LOC: CAR 08:30 | PROVIDERS: PCP Family Medicine; Referring Provider Internal Medicine Cardiovascular Disease; Visit Provider Internal Medicine Cardiovascular Disease | DX: Z95.5 Presence of coronary angioplasty implant and graft (principal) | CPT/HCPCS: 93798 ==

== ENCOUNTER → 2021-12-15 09:22 | Outpatient (CLI) | payer MEDICARE, OTHER, SELFPAY ==
[2021-12-15 11:23] LABS: COVID-19 CEPHEID PCR (VTM/NP) Negative (Negative)
== END ==
PROVIDERS: PCP Family Medicine; Visit Provider Nurse Practitioner Family
DX: Z20.822 Contact with and (suspected) exposure to COVID-19 (principal)
CPT/HCPCS: C9803; U0003; U0005

== ENCOUNTER → 2021-12-16 07:53 | Outpatient (CLI) | payer MEDICARE, OTHER, SELFPAY ==
[2021-12-16 09:17] LABS: Alanine Aminotransferase 19 IU/L (<50); Albumin 3.9 g/dL (3.5-5.0); Albumin Globulin Ratio 1.7 (1.0-2.8); Alkaline Phosphatase 62 U/L (38-126); Aspartate Aminotransferase 28 IU/L (17-59); BUN Creatinine Ratio 15.9 (6-22); Bilirubin Total 0.7 mg/dL (0.2-1.3); Blood Urea Nitrogen 21 mg/dL (9-20); Calcium 8.9 mg/dL (8.4-10.2); Carbon Dioxide 29 mmol/L (22-32); Chloride 105 mmol/L (98-107); Cholesterol 125 mg/dL (140-199); Estimated Glomerular Filt Rate 53.2 mL/min (>60); Globulin 2.3 g/dL (1.7-4.1); Glucose 107 mg/dL (80-110); HDL Cholesterol 45 mg/dL (40-60); HEMOLYSIS < 15 (0-50); LDL Cholesterol Calculated 66 mg/dL (<100); Magnesium 2.3 mg/dL (1.6-2.3); Potassium 4.3 mmol/L (3.4-5.1); Sodium 137 mmol/L (137-145); Total Protein 6.2 g/dL (6.3-8.2); Triglycerides 68 mg/dL (35-150)
[2021-12-16 09:48] LABS: Cortisol AM (Before 10AM) 1.75 ug/dL (4.46-22.7)
[2021-12-18 07:24] LABS: Dehydroepiandrosterone Sulfate 30.5 ug/dL (30.9-295.6)
[2021-12-20 10:58] LABS: Metanephrine,Plasma 40.4 pg/mL (0.0-88.0)
[2021-12-29 11:54] LABS: Aldosterone/Renin Activity Rat 18.1 (0.0-30.0); Plama Renin, LC/MS/MS 0.376 ng/mL/hr (0.167-5.380)
== END ==
PROVIDERS: PCP Family Medicine; Referring Provider Internal Medicine Endocrinology, Diabetes & Metabolism; Visit Provider Internal Medicine Endocrinology, Diabetes & Metabolism
DX: E87.6 Hypokalemia (principal); E78.5 Hyperlipidemia, unspecified; D49.7 Neoplasm of unspecified behavior of endocrine glands and other parts of nervous system; I21.4 Non-ST elevation (NSTEMI) myocardial infarction; E78.2 Mixed hyperlipidemia; I10 Essential (primary) hypertension
CPT/HCPCS: 36415; 80053; 80061; 82088; 82533; 82627; 83735; 83835; 84244

== ENCOUNTER 2022-01-11 12:22 | Emergency (ER) | payer MEDICARE, OTHER, SELFPAY ==
[2022-01-11] VITALS (11 sets, daily range): BP systolic 101–141; BP diastolic 63–74; PULSE 53–68; RESP 14–23; TEMP 36.8; O2SAT 92–98; BMI 22.8
--- NOTE | 2022-01-11 12:25 | DI.RAD.S_ITS ---
PROCEDURE: XR CHEST 1V INDICATIONS: chest pain TECHNIQUE: One view of the chest was acquired. COMPARISON: Merged With [facility], CT, CT ANGIO CHEST ABDOMEN PELVIS, 07/18/2021, 5:27. Merged With [facility], CR, XR CHEST 1V, 10/20/2021, 9:00. Merged With [facility], CR, XR CHEST 1V, 07/10/2021, 9:54. FINDINGS: Surgical changes and devices: Coronary stents. Lungs and pleura: Patchy airspace opacity in the right lung. No pleural effusions or pneumothorax. Mediastinum: Mediastinal contours appear unremarkable. Heart size is within normal limits. Bones and chest wall: No suspicious bony lesions. Overlying soft tissues appear unremarkable. IMPRESSION: Patchy airspace opacity in the right lung. This is concerning for pneumonia. Aspiration or atelectasis could have a similar appearance. Dictated by: Eliseo Saeed M.D. on 01/11/2022 at 13:01 Approved by: Eliseo Saeed M.D. on 01/11/2022 at 13:04
--- NOTE | 2022-01-11 12:28 | ED.CHESTPAIN ---
HPI - Chest Pain General Chief Complaint: Chest Pain Stated Complaint: Chest Pain Time Seen by Provider: 01/11/22 12:23 History of Present Illness HPI narrative: Patient is a 71-year-old male with history of coronary artery disease 6 stents, hypertension, hyperlipidemia, discomfort. He is getting frustrated by his partner. So he left and went on a walk. During his walk he got extremely lightheaded. When he returned to the house partner thought he looked mathis and ashen. He had some chest discomfort as well. He took 3 nitroglycerin at home and call 911. EMS also gave him 1 nitro spray. He now was chest pain free. He denies any radiation of pain. Discomfort stated centrally in his is chest. He denies any shortness of breath. No palpitations dizziness lightheadedness. No cough. Related Data Home Medications Medication Instructions Recorded Confirmed ascorbate calcium (vitamin C) 500 500 mg PO BID 07/07/20 10/21/21 mg tablet cholecalciferol (vitamin D3) 250 250 mcg PO QAM 07/07/20 10/21/21 mcg (10,000 unit) capsule glucosamine 750 mg-MSM 60 1 tab PO BID 07/07/20 10/21/21 mg-chondroit 150 mg-hyaluron ac 1 mg tablet dutasteride 0.5 mg capsule 0.5 mg PO QAM 07/10/21 10/21/21 esomeprazole magnesium 20 mg 20 mg PO QAM 07/10/21 10/21/21 capsule,delayed release losartan 50 mg tablet 50 mg PO QAM 07/10/21 10/21/21 tamsulosin 0.4 mg capsule (Flomax) 0.4 mg PO QAM 07/10/21 10/21/21 atorvastatin 80 mg tablet 80 mg PO DAILY 07/25/21 10/21/21 metoprolol succinate 25 mg capsule 25 mg PO DAILY 07/25/21 10/21/21 sprinkle, ext. release 24 hr nitroglycerin 0.4 mg sublingual 0.4 mg SUBLINGUAL Q5M PRN 07/25/21 10/21/21 tablet prasugrel 10 mg tablet 10 mg PO DAILY 07/25/21 10/21/21 potassium chloride 10 mEq 60 meq PO QAM tab 10/21/21 10/21/21 tablet,extended release Previous Rx's Medication Instructions Recorded amlodipine 10 mg tablet 10 mg PO QAM #90 tab 08/08/21 indomethacin 50 mg capsule See Rx Instructions .ROUTE 08/12/21 .COMPLEX #30 cap Allergies Allergy/AdvReac Type Severity Reaction Status Date / Time latex Allergy Rash Verified 01/11/22 12:49 Review of Systems Review of Systems Narrative: GENERAL: Denies chills, fatigue, malaise, fever, sweats, travel HEENT: Denies sinus pain, ear pain, sore throat, difficulty swallowing, neck pain RESPIRATORY: Denies dyspnea, cough, wheezing, hemoptysis, sputum. CARDIOVASCULAR: Denies chest pain, palpitations, orthopnea, edema GASTROINTESTINAL: See HPI : Denies dysuria, frequency, incontinence, hematuria, urinary retention, flank pain. MUSCULOSKELETAL: Denies weakness, joint pain, or bony pain SKIN: No rash, no erythema, no pruritus NEUROLOGIC: Denies weakness, dizziness, headache, numbness, change in speech, confusion PSYCHIATRIC: No concerning psychosocial issues. 12 point review of systems is negative except for those stated above and HPI Patient History Medical History Abdominal bloating Actinic keratoses Adverse reaction to antibiotic Anxiety about health Aortic aneurysm, abdominal Aortic regurgitation (1994) Benign prostatic hyperplasia BRBPR (bright red blood per rectum) Cardiac arrhythmia Cerumen impaction Cervical somatic dysfunction Chronic pain of left ankle Chronic right shoulder pain Chronic thoracic back pain Constipation Cranial somatic dysfunction Elevated PSA Fecal incontinence Frequent loose stools Gallbladder polyp GERD (gastroesophageal reflux disease) Gluten enteropathy Gout Hiatal hernia Hypothyroidism Low testosterone Lumbar region somatic dysfunction Medication side effects present Onychomycosis Other stressful life events affecting family and household Pancreatitis Pelvic somatic dysfunction Renal cyst Resistant hypertension Sacral region somatic dysfunction Scoliosis Scoliosis of thoracic spine Segmental and somatic dysfunction of abdomen and other regions Segmental and somatic dysfunction of rib cage Segmental and somatic dysfunction of upper extremity Shoulder pain Skin rash Sleep disorder Somatic dysfunction of lower extremity Stiff neck Stress due to illness of family member Thoracic region somatic dysfunction Surgical History Anesthesia Ankle fracture (1978) History of eyelid surgery (2016) History of pancreatic surgery (1994) Family History Brother Age: 65 No problems noted. Father Heart disease Mental health problem Smoker Alcoholic Brother No problems noted. Grandfather Cancer Grandmother No problems noted. Mother No problems noted. Grandfather Fall from roof Grandmother Cancer Sister Overweight Sister No problems noted. Social History marital status: number of children: 0 household members: none lives independently: Yes caregiver/support person: No housing: house Smoking Status: Never smoker second hand exposure: No alcohol intake: never substance use type: does not use Smoking Status: Never smoker alcohol intake frequency: 0-2 drinks per day Substance Use Type: does not use Exam Initial Vital Signs Initial Vital Signs: Vital Signs Temperature 98.2 F 01/11/22 12:20 Pulse Rate 68 01/11/22 12:20 Respiratory Rate 18 01/11/22 12:20 Blood Pressure 122/68 01/11/22 12:20 Pulse Oximetry 98 01/11/22 12:20 GENERAL: Alert very pleasant 71-year-old male and in no acute distress. HEENT: Head atraumatic,EOMI, pupils reactive, face symmetric, moist mucous membranes CARDIOVASCULAR: Regular rate and rhythm without murmurs, rubs or gallops. RESPIRATORY: Breath sounds equal bilaterally, no wheezes rales or rhonchi. ABDOMEN: Soft, nontender. Normoactive bowel sounds all 4 quadrants. No guarding or rebound. EXTREMITIES: Normal range of motion, no clubbing or edema. Neurovascularly intact NEUROLOGICAL: Alert and oriented x4.Normal gait and speech. SKIN: Warm, dry, no laceration, no petechiae, no rashes or lesions. Course Orders Ordered: ED Orders 01/11/22 12:24 EKG-12 Lead Stat 01/11/22 12:25 XR chest 1V Stat 01/11/22 12:31 Complete Blood Count AUTO DIFF Stat Comprehensive Metabolic Panel Stat Lipase Stat Magnesium Stat Partial Thromboplastin Time Stat Prothrombin Time INR Stat Troponin & CK Cardiac Panel Stat 01/11/22 14:53 Trop I [Troponin I] Stat 01/11/22 16:00 EKG-12 Lead Routine Vital Signs Vital signs: Vital Signs - 8 hr 01/11/22 12:20 01/11/22 12:25 01/11/22 12:30 Temperature 98.2 F Pulse Rate 68 67 67 Respiratory Rate 18 17 Blood Pressure 122/68 114/68 Pulse Oximetry 98 98 98 04/13/22 13:00 01/11/22 13:30 01/11/22 14:00 Temperature Pulse Rate 54 L 53 L Respiratory Rate 23 21 20 Blood Pressure 101/63 110/67 119/69 Pulse Oximetry 96 95 96 01/11/22 14:30 01/11/22 15:00 01/11/22 15:01 Temperature Pulse Rate 54 L 55 L Respiratory Rate 14 19 Blood Pressure 117/63 131/74 Pulse Oximetry 94 97 92 01/11/22 15:30 01/11/22 16:00 Temperature Pulse Rate 58 L 58 L Respiratory Rate 23 22 Blood Pressure 138/72 141/67 H Pulse Oximetry 98 97 MDM - Chest Pain Lab Data Result diagrams: 01/11/22 12:31 01/11/22 12:31 Labs: Lab Results 01/11/22 01/11/22 01/11/22 Range/Units 12:31 12:31 12:31 WBC 6.4 (4.5-11.0) X10^3/uL RBC 3.97 L (4.5-5.9) X10^6/uL Hgb 11.4 L (13.5-17.5) g/dL Hct 33.4 L (41-53) % MCV 84.2 (80-100) fL MCH 28.7 (26-34) PG MCHC 34.1 (30-36) % RDW 13.3 (11.6-14.8) % Plt Count 221 (150-400) X10^3/uL Neut % (Auto) 78.4 H (50-75) % Lymph % (Auto) 9.4 L (25-40) % [place] % (Auto) 11.1 (3-14) % Eos % (Auto) 0.7 L (2-4) % Baso % (Auto) 0.4 (0-2) % Neut # (Auto) 5100 (2517-9592) /uL Lymph # (Auto) 600 L (0224-1878) /uL [place] # (Auto) 700 (0-900) /uL Eos # (Auto) 0 (0-450) /uL Baso # (Auto) 0 (0-100) /uL PT 12.7 (10.1-12.7) SECONDS INR 1.1 (0.9-1.3) APTT 29 (26.4-36.2) SECONDS Sodium 138 (137-145) mmol/L Potassium 4.2 (3.4-5.1) mmol/L Chloride 103 (98-107) mmol/L Carbon Dioxide 28 (22-32) mmol/L BUN 21 H (9-20) mg/dL Creatinine 1.33 H (0.66-1.25) mg/dL Estimated GFR 56 L (>60) mL/min BUN/Creatinine Ratio 15.8 (6-22) Glucose 101 (80-110) mg/dL Calcium 8.7 (8.4-10.2) mg/dL Magnesium 2.2 (1.6-2.3) mg/dL Total Bilirubin 1.1 (0.2-1.3) mg/dL AST 25 (17-59) IU/L ALT 15 (<50) IU/L Alkaline Phosphatase 75 (38-126) U/L Total Creatine Kinase 88 (55-170) U/L CK-MB (CK-2) TNP CK-MB (CK-2) Rel Index TNP Troponin I < 0.012 (0.01-0.034) ng/mL Total Protein 6.3 (6.3-8.2) g/dL Albumin 3.7 (3.5-5.0) g/dL Globulin 2.6 (1.7-4.1) g/dL Albumin/Globulin Ratio 1.4 (1.0-2.8) Lipase 32 (23-300) U/L 01/11/22 Range/Units 14:53 WBC (4.5-11.0) X10^3/uL RBC (4.5-5.9) X10^6/uL Hgb (13.5-17.5) g/dL Hct (41-53) % MCV (80-100) fL MCH (26-34) PG MCHC (30-36) % RDW (11.6-14.8) % Plt Count (150-400) X10^3/uL Neut % (Auto) (50-75) % Lymph % (Auto) (25-40) % [place] % (Auto) (3-14) % Eos % (Auto) (2-4) % Baso % (Auto) (0-2) % Neut # (Auto) (4296-6223) /uL Lymph # (Auto) (0151-7108) /uL [place] # (Auto) (0-900) /uL Eos # (Auto) (0-450) /uL Baso # (Auto) (0-100) /uL PT (10.1-12.7) SECONDS INR (0.9-1.3) APTT (26.4-36.2) SECONDS Sodium (137-145) mmol/L Potassium (3.4-5.1) mmol/L Chloride (98-107) mmol/L Carbon Dioxide (22-32) mmol/L BUN (9-20) mg/dL Creatinine (0.66-1.25) mg/dL Estimated GFR (>60) mL/min BUN/Creatinine Ratio (6-22) Glucose (80-110) mg/dL Calcium (8.4-10.2) mg/dL Magnesium (1.6-2.3) mg/dL Total Bilirubin (0.2-1.3) mg/dL AST (17-59) IU/L ALT (<50) IU/L Alkaline Phosphatase (38-126) U/L Total Creatine Kinase (55-170) U/L CK-MB (CK-2) CK-MB (CK-2) Rel Index Troponin I < 0.012 (0.01-0.034) ng/mL Total Protein (6.3-8.2) g/dL Albumin (3.5-5.0) g/dL Globulin (1.7-4.1) g/dL Albumin/Globulin Ratio (1.0-2.8) Lipase (23-300) U/L Urine Dip Bedside Urine Glucose Negative Bedside Urine Bilirubin - Negative Bedside Urine Ketone - Negative Urine Specific [place] 1.015 Bedside Urine Occult Blood - Negative Bedside Urine pH 6.0 Bedside Urine Protein - Negative Bedside Urine Urobilinogen - Negative Bedside Urine Nitrite - Negative Bedside Urine Leukocytes - Negative Esterase ECG Data Interpretation: Normal sinus rhythm at 73 ND interval 200 QRS 92 QTC 423 noted but he is found to have some T-wave inversion in V2 Q-waves noted in 1 and aVL will have these are persistent from previous EKG in 2021. EKG 2. Persistent T-wave inversions Q-waves no ST elevations. [facility] Narrative Medical decision making narrative: Patient does have symptoms of chest discomfort and shortness of breath with exertion relieved with nitroglycerin concerning for stable angina. He has been chest pain free and symptomatic free since nitroglycerin and rest in the emergency department. He also seems to have quite a stressful relationship with a chronically-ill partner. 2- troponins and 2 EKGs without new changes. 1606 Dr. Mondragon cardiology updated patient's symptoms test results. He confirms persistent T-wave inversions and Q-waves. His office will call him for close follow-up. Patient is anxious to get home his partner is being taken to [facility]. At this time no need for admission. Discharge Plan Departure Patient Disposition: Home Clinical Impression: Atypical chest pain Instructions: DI for Atypical Chest Pain Activity Restrictions/Additional Instructions: *You have been diagnosed with atypical chest pain *What to do: Please follow-up with her ski binding fitter and repairer. You may need further testing or medication adjustment. *Continue to take medications as directed *Follow up with your primary care provider in 2-3 days or call [phone] Please follow-up with your ski binding fitter and repairer Dr. Mondragon. Call and set up an appointment for tomorrow. His office should also reach out to you. *Return to ER if you should have increasing chest pain, shortness of breath, palpitations, dizziness lightheadedness or any new, worsening or concerning symptoms Prescriptions: No Action atorvastatin 80 mg tablet 80 mg PO DAILY 0RF nitroglycerin 0.4 mg tablet, sublingual 0.4 mg sublingual Q5M PRN0RF Rx Instructions: do not exceed 3 doses per episode metoprolol succinate 25 mg capsule,sprinkle,ER 24hr 25 mg PO DAILY 0RF prasugrel 10 mg tablet 10 mg PO DAILY 0RF amlodipine 10 mg tablet 10 mg PO QAM Qty: 90 1RF indomethacin 50 mg capsule See Rx Instructions .ROUTE .COMPLEX Qty: 30 0RF Dose Instruction: TAKE ONE CAPSULE BY MOUTH THREE TIMES DAILY NEEDED GOUT Rx Instructions: TAKE ONE CAPSULE BY MOUTH THREE TIMES DAILY NEEDED GOUT cholecalciferol (vitamin D3) 250 mcg (10,000 unit) capsule 250 mcg PO QAM 0RF ascorbate calcium (vitamin C) 500 mg tablet 500 mg PO BID 0RF [id number]-TVW-zhxak-hyaluron ac [id number] mg tablet 1 tab PO BID 0RF potassium chloride 10 mEq tablet extended release 60 meq PO QAM 0RF esomeprazole magnesium 20 mg capsule,delayed release(DR/EC) 20 mg PO QAM 0RF dutasteride 0.5 mg capsule 0.5 mg PO QAM 0RF losartan 50 mg tablet 50 mg PO QAM 0RF tamsulosin [Flomax] 0.4 mg capsule 0.4 mg PO QAM 0RF Referrals: Irwin Amador DO [Primary Care Provider] - Jacquelyn Mondragon MD [Non-Staff] -
[2022-01-11 12:51] LABS: Add Manual Diff / Slide Review NO; Basophils Absolute Auto 0 /uL (0-100); Basophils Percent Auto 0.4 % (0-2); Eosinophils Absolute Auto 0 /uL (0-450); Eosinophils Percent Auto 0.7 % (2-4); Hematocrit 33.4 % (41-53); Hemoglobin 11.4 g/dL (13.5-17.5); Lymphocytes Absolute Auto 600 /uL (1100-4500); Lymphocytes Percent Auto 9.4 % (25-40); Mean Corpuscular HGB Conc 34.1 % (30-36); Mean Corpuscular Hemoglobin 28.7 PG (26-34); Mean Corpuscular Volume 84.2 fL (80-100); Monocytes Absolute Auto 700 /uL (0-900); Monocytes Percent Auto 11.1 % (3-14); Neutrophils Absolute Auto 5100 /uL (1500-7000); Neutrophils Percent Auto 78.4 % (50-75); Platelet Count 221 X10^3/uL (150-400); Red Blood Cell Count 3.97 X10^6/uL (4.5-5.9); Red Cell Distribution Width 13.3 % (11.6-14.8); White Blood Cell Count 6.4 X10^3/uL (4.5-11.0)
[2022-01-11 12:59] LABS: INR 1.1 (0.9-1.3); Prothrombin Time 12.7 SECONDS (10.1-12.7)
[2022-01-11 13:02] LABS: PTT Partial Thromboplastin Tim 29 SECONDS (26.4-36.2)
[2022-01-11 13:05] LABS: Alanine Aminotransferase 15 IU/L (<50); Albumin 3.7 g/dL (3.5-5.0); Albumin Globulin Ratio 1.4 (1.0-2.8); Alkaline Phosphatase 75 U/L (38-126); Aspartate Aminotransferase 25 IU/L (17-59); BUN Creatinine Ratio 15.8 (6-22); Bilirubin Total 1.1 mg/dL (0.2-1.3); Blood Urea Nitrogen 21 mg/dL (9-20); Calcium 8.7 mg/dL (8.4-10.2); Carbon Dioxide 28 mmol/L (22-32); Chloride 103 mmol/L (98-107); Creatine Kinase 88 U/L (55-170); Estimated Glomerular Filt Rate 56 mL/min (>60); Globulin 2.6 g/dL (1.7-4.1); Glucose 101 mg/dL (80-110); HEMOLYSIS < 15 (0-50); Lipase 32 U/L (23-300); Magnesium 2.2 mg/dL (1.6-2.3); Potassium 4.2 mmol/L (3.4-5.1); Sodium 138 mmol/L (137-145); Total Protein 6.3 g/dL (6.3-8.2)
[2022-01-11 13:15] LABS: Troponin I < 0.012 ng/mL (0.01-0.034)
[2022-01-11 15:33] LABS: Troponin I < 0.012 ng/mL (0.01-0.034)
== END 2022-01-11 16:25 | disposition home or self-care (01) ==
PROVIDERS: Emergency Provider Emergency Medicine; PCP Family Medicine
DX: R07.89 Other chest pain (principal); R06.02 Shortness of breath
CPT/HCPCS: 36415; 71045; 80053; 81003; 82550; 83690; 83735; 84484; 85025; 85610; 85730; 93005; 93010; 99283; 99284

== ENCOUNTER 2022-02-12 09:54 | Emergency (ER) | payer MEDICARE, OTHER, SELFPAY ==
[2022-02-12] VITALS (8 sets, daily range): BP systolic 141–155; BP diastolic 75–81; PULSE 54–68; RESP 13–22; TEMP 36.9; O2SAT 93–99; BMI 21.6
--- NOTE | 2022-02-12 10:18 | DI.RAD.S_ITS ---
PROCEDURE: XR CHEST 2V INDICATIONS: shortness of breath TECHNIQUE: 2 views of the chest were acquired. COMPARISON: [facility], CT, CT CHEST WITHOUT CONTRAST, 01/27/2022, 16:39. [facility], CR, XR CHEST 1V, 01/11/2022, 12:38. [facility], CR, XR CHEST 1V, 10/20/2021, 9:00. FINDINGS: Surgical changes and devices: Coronary stents. Lungs and pleura: Ill-defined nodular opacity in the right lung is identified. No pleural effusions or pneumothorax. Mediastinum: Mediastinal contours are unchanged. Heart size is normal. Bones and chest wall: No suspicious bony abnormalities. Soft tissues appear unremarkable. IMPRESSION: Ill-defined nodular opacity in the right lung. Overall similar compared to CXR 01/11/2022. Consider follow-up CT chest for direct comparison. Dictated by: Eliseo Saeed M.D. on 02/12/2022 at 11:11 Approved by: Eliseo Saeed M.D. on 02/12/2022 at 11:15
--- NOTE | 2022-02-12 10:34 | ED.SOB ---
HPI - SOB/Dyspnea General Chief Complaint: Shortness of Breath/Dyspnea Stated Complaint: sob night sweats disoriented Time Seen by Provider: 02/12/22 10:20 Source: patient Mode of arrival: Ambulatory Limitations: no limitations History of Present Illness HPI Narrative: Patient is a 71-year-old male with known coronary artery disease 6 stents, CKD, presenting today with increasing weakness. Over the last few weeks he said he has had night sweats he has increasing weakness and increasing shortness of breath with exertion. He had a bronchoscopy last week at [facility] at says he was diagnosed with PCP pneumonia. He has not yet been started on antibiotics he is waiting to see infectious disease. He says however this week he just continues to decline. He continues to lose weight he has some brain fog. He says he used to be very active but he can not offer are now helping short of breath. He is chilled now with some night sweats. There was prior concern for possible malignancy. He has had follow-up with Cardiology and pulmonology. Related Data Home Medications Medication Instructions Recorded Confirmed ascorbate calcium (vitamin C) 500 500 mg PO BID 07/07/20 01/13/22 mg tablet cholecalciferol (vitamin D3) 250 250 mcg PO QAM 07/07/20 01/13/22 mcg (10,000 unit) capsule glucosamine 750 mg-MSM 60 1 tab PO BID 07/07/20 01/13/22 mg-chondroit 150 mg-hyaluron ac 1 mg tablet dutasteride 0.5 mg capsule 0.5 mg PO QAM 07/10/21 01/13/22 tamsulosin 0.4 mg capsule (Flomax) 0.4 mg PO QAM 07/10/21 01/13/22 metoprolol succinate 25 mg capsule 25 mg PO DAILY 07/25/21 01/13/22 sprinkle, ext. release 24 hr nitroglycerin 0.4 mg sublingual 0.4 mg SUBLINGUAL Q5M PRN 07/25/21 01/13/22 tablet potassium chloride 10 mEq 60 meq PO QAM tab 10/21/21 01/13/22 tablet,extended release CBD PO 01/13/22 Restore Lorena PO 01/13/22 aspirin 81 mg tablet,delayed 81 mg PO DAILY 01/13/22 01/13/22 release (Adult Low Dose Aspirin) carvedilol 3.125 mg tablet 3.125 mg PO tab 01/13/22 01/13/22 coenzyme Q10 100 mg capsule 100 mg PO DAILY 01/13/22 01/13/22 losartan 50 mg tablet 25 mg PO BID tab 01/13/22 01/13/22 multivitamin 1 tab PO DAILY 01/13/22 01/13/22 pantoprazole 40 mg tablet,delayed mg PO 01/13/22 01/13/22 release rosuvastatin 10 mg tablet 10 mg PO tab 01/13/22 01/13/22 triamterene 50 mg capsule 50 mg PO cap 01/13/22 01/13/22 Previous Rx's Medication Instructions Recorded amlodipine 10 mg tablet 10 mg PO QAM #90 tab 08/08/21 hydrocodone 5 mg-acetaminophen 325 1 tab PO Q6H PRN #10 tab 02/12/22 mg tablet Allergies Allergy/AdvReac Type Severity Reaction Status Date / Time latex Allergy Rash Verified 02/12/22 10:17 Review of Systems Review of Systems ROS Unobtainable: All systems reviewed & are unremarkable except as noted in HPI and below Constitutional Constitutional: Reports body ache(s), Reports chills, Reports headache(s), Reports lethargy, Reports night sweats, Reports weakness and Reports weight loss Eyes Eyes: Denies blurry vision and Denies exophthalmos ENT Ears, Nose, Mouth, and Throat: Denies dizziness, Denies dry mouth, Reports headache(s) and Denies hoarseness Cardiovascular Cardiovascular: Reports as per HPI, Denies chest pain at rest, Reports dyspnea on exertion and Denies orthopnea Respiratory Respiratory: Reports as per HPI, Reports cough, Denies hemoptysis, Denies excessive phlegm production and Reports dyspnea on exertion Gastrointestinal Gastrointestinal: Denies abdominal pain, Denies nausea and Denies vomiting Genitourinary Genitourinary: Denies urinary hesitancy Musculoskeletal Musculoskeletal: Reports arthralgias (left shoulder scaupla pain) Neurologic Neurologic: Denies dizziness, Reports headache(s) and Reports weakness Patient History Medical History Abdominal bloating Actinic keratoses Adverse reaction to antibiotic Anxiety about health Aortic aneurysm, abdominal Aortic regurgitation (1994) Benign prostatic hyperplasia BRBPR (bright red blood per rectum) Cardiac arrhythmia Cerumen impaction Cervical somatic dysfunction Chronic pain of left ankle Chronic right shoulder pain Chronic thoracic back pain Constipation Cranial somatic dysfunction Elevated PSA Fecal incontinence Frequent loose stools Gallbladder polyp GERD (gastroesophageal reflux disease) Gluten enteropathy Gout Hiatal hernia Hypothyroidism Low testosterone Lumbar region somatic dysfunction Medication side effects present Onychomycosis Other stressful life events affecting family and household Pancreatitis Pelvic somatic dysfunction Renal cyst Resistant hypertension Sacral region somatic dysfunction Scoliosis Scoliosis of thoracic spine Segmental and somatic dysfunction of abdomen and other regions Segmental and somatic dysfunction of rib cage Segmental and somatic dysfunction of upper extremity Shoulder pain Skin rash Sleep disorder Somatic dysfunction of lower extremity Stiff neck Stress due to illness of family member Thoracic region somatic dysfunction Surgical History Anesthesia Ankle fracture (1978) History of eyelid surgery (2016) History of pancreatic surgery (1994) Family History Brother Age: 65 No problems noted. Father Heart disease Mental health problem Smoker Alcoholic Brother No problems noted. Grandfather Cancer Grandmother No problems noted. Mother No problems noted. Grandfather Fall from roof Grandmother Cancer Sister Overweight Sister No problems noted. Social History marital status: number of children: 0 household members: none lives independently: Yes caregiver/support person: No housing: house Smoking Status: Never smoker second hand exposure: No alcohol intake: never substance use type: does not use Smoking Status: Never smoker alcohol intake frequency: 0-2 drinks per day Substance Use Type: does not use Exam Initial Vital Signs Initial Vital Signs: Vital Signs Temperature 98.5 F 02/12/22 10:00 Pulse Rate 68 02/12/22 10:00 Respiratory Rate 22 02/12/22 10:00 Blood Pressure 155/81 H 02/12/22 10:00 Pulse Oximetry 99 02/12/22 10:00 GENERAL: Awake alert 71-year-old maleand in no acute distress. HEENT: Head atraumatic,EOMI, pupils reactive, face symmetric, moist mucous membranes CARDIOVASCULAR: Regular rate and rhythm without murmurs, rubs or gallops. RESPIRATORY: Breath sounds equal bilaterally, no wheezes rales or rhonchi. ABDOMEN: Soft, nontender. Normoactive bowel sounds all 4 quadrants. No guarding or rebound. EXTREMITIES: Normal range of motion, no clubbing or edema. Neurovascularly intact NEUROLOGICAL: Alert and oriented x4.Normal gait and speech. SKIN: Warm, dry, no laceration, no petechiae, no rashes or lesions. Course Orders Ordered: ED Orders 02/12/22 10:12 BNP [NT-proBNP (BNP-Adult 18+)] Stat Comprehensive Metabolic Panel Stat Lactate (Lactic Acid) Stat Procalcitonin Stat Troponin & CK Cardiac Panel Stat 02/12/22 10:18 XR chest 2V Stat Complete Blood Count AUTO DIFF Stat EKG-12 Lead Stat Measure peak expiratory flow ONCE RT Consult Eval and Treat Now 02/12/22 10:53 D Dimer Stat 02/12/22 11:10 Blood Culture Stat 02/12/22 11:23 CT angio chest PE protocol Stat Discontinued Medications Morphine Sulfate (Morphine 2 Mg/Ml Inj) 2 mg IV NOW ONE Stop: 02/12/22 10:54 Last Admin: 02/12/22 11:23 Dose: 2 mg Documented by: ALEXIS Vital Signs Vital signs: Vital Signs - 8 hr 02/12/22 11:00 02/12/22 11:30 02/12/22 12:00 Pulse Rate 62 60 Respiratory Rate 13 Blood Pressure Pulse Oximetry 93 96 98 02/12/22 12:30 02/12/22 13:47 Pulse Rate 54 L 60 Respiratory Rate 22 16 Blood Pressure 149/79 H Pulse Oximetry 95 97 MDM - SOB/Dyspnea Lab Data Result diagrams: 02/12/22 10:18 02/12/22 10:12 Labs: Lab Results 02/12/22 02/12/22 02/12/22 Range/Units 10:12 10:12 10:12 WBC (4.5-11.0) X10^3/uL RBC (4.5-5.9) X10^6/uL Hgb (13.5-17.5) g/dL Hct (41-53) % MCV (80-100) fL MCH (26-34) PG MCHC (30-36) % RDW (11.6-14.8) % Plt Count (150-400) X10^3/uL Neut % (Auto) (50-75) % Lymph % (Auto) (25-40) % Whiteside % (Auto) (3-14) % Eos % (Auto) (2-4) % Baso % (Auto) (0-2) % Neut # (Auto) (7411-4526) /uL Lymph # (Auto) (4326-0520) /uL Whiteside # (Auto) (0-900) /uL Eos # (Auto) (0-450) /uL Baso # (Auto) (0-100) /uL D-Dimer (<230) ng/mL Sodium 136 L (137-145) mmol/L Potassium 3.7 (3.4-5.1) mmol/L Chloride 102 (98-107) mmol/L Carbon Dioxide 28 (22-32) mmol/L BUN 23 H (9-20) mg/dL Creatinine 1.31 H (0.66-1.25) mg/dL Estimated GFR 57 L (>60) mL/min BUN/Creatinine Ratio 17.6 (6-22) Glucose 119 H (80-110) mg/dL Lactate 1.9 (0.7-2.1) mmol/L Calcium 9.1 (8.4-10.2) mg/dL Total Bilirubin 0.5 (0.2-1.3) mg/dL AST 63 H (17-59) IU/L ALT 17 (<50) IU/L Alkaline Phosphatase 85 (38-126) U/L Total Creatine Kinase 56 (55-170) U/L CK-MB (CK-2) TNP CK-MB (CK-2) Rel Index TNP Troponin I < 0.012 (0.01-0.034) ng/mL NT-Pro-B Natriuret Pep 1660 H (<125) pg/mL Total Protein 6.7 (6.3-8.2) g/dL Albumin 3.9 (3.5-5.0) g/dL Globulin 2.8 (1.7-4.1) g/dL Albumin/Globulin Ratio 1.4 (1.0-2.8) Procalcitonin 0.06 (<0.5) ng/mL 02/12/22 02/12/22 Range/Units 10:18 10:53 WBC 5.3 (4.5-11.0) X10^3/uL RBC 4.30 L (4.5-5.9) X10^6/uL Hgb 12.2 L (13.5-17.5) g/dL Hct 35.9 L (41-53) % MCV 83.5 (80-100) fL MCH 28.4 (26-34) PG MCHC 34.0 (30-36) % RDW 13.8 (11.6-14.8) % Plt Count 192 (150-400) X10^3/uL Neut % (Auto) 74.8 (50-75) % Lymph % (Auto) 11.6 L (25-40) % Whiteside % (Auto) 11.2 (3-14) % Eos % (Auto) 1.9 L (2-4) % Baso % (Auto) 0.5 (0-2) % Neut # (Auto) 3900 (1220-5589) /uL Lymph # (Auto) 600 L (9462-1218) /uL Whiteside # (Auto) 600 (0-900) /uL Eos # (Auto) 100 (0-450) /uL Baso # (Auto) 0 (0-100) /uL D-Dimer < 200 (<230) ng/mL Sodium (137-145) mmol/L Potassium (3.4-5.1) mmol/L Chloride (98-107) mmol/L Carbon Dioxide (22-32) mmol/L BUN (9-20) mg/dL Creatinine (0.66-1.25) mg/dL Estimated GFR (>60) mL/min BUN/Creatinine Ratio (6-22) Glucose (80-110) mg/dL Lactate (0.7-2.1) mmol/L Calcium (8.4-10.2) mg/dL Total Bilirubin (0.2-1.3) mg/dL AST (17-59) IU/L ALT (<50) IU/L Alkaline Phosphatase (38-126) U/L Total Creatine Kinase (55-170) U/L CK-MB (CK-2) CK-MB (CK-2) Rel Index Troponin I (0.01-0.034) ng/mL NT-Pro-B Natriuret Pep (<125) pg/mL Total Protein (6.3-8.2) g/dL Albumin (3.5-5.0) g/dL Globulin (1.7-4.1) g/dL Albumin/Globulin Ratio (1.0-2.8) Procalcitonin (<0.5) ng/mL Urine Dip Bedside Urine Glucose Negative Bedside Urine Bilirubin - Negative Bedside Urine Ketone - Negative Urine Specific [place] 1.015 Bedside Urine Occult Blood - Negative Bedside Urine pH 6.5 Bedside Urine Protein - Negative Bedside Urine Urobilinogen - Negative Bedside Urine Nitrite - Negative Bedside Urine Leukocytes - Negative Esterase Imaging Data Chest x-ray: Radiologist's Impression: ALEX Jimenez [id number] XRay Report Signed Patient: Segun Hernandez MR#: [id number] : 1950 Acct:[id number] Age/Sex: 71 / M Date of Service: 02/12/22 Loc: ED Accession Number: [id number] ?? Procedure: XR chest 2V Ordering Provider: Mima Bustamante D.O. PROCEDURE:? XR CHEST 2V ? INDICATIONS:? shortness of breath ? TECHNIQUE:? 2 views of the chest were acquired.? ? COMPARISON:? [facility], CT, CT CHEST WITHOUT CONTRAST, 01/27/2022, 16:39.? [facility], CR, XR CHEST 1V, 01/11/2022, 12:38.? [facility], CR, XR CHEST 1V, 10/20/2021, 9:00. ? FINDINGS:? ? Surgical changes and devices:? Coronary stents.? ? Lungs and pleura:? Ill-defined nodular opacity in the right lung is identified.? No pleural effusions or pneumothorax.? ? Mediastinum:? Mediastinal contours are unchanged.? Heart size is normal.? ? Bones and chest wall:? No suspicious bony abnormalities.? Soft tissues appear unremarkable.? ? IMPRESSION:? Ill-defined nodular opacity in the right lung.? Overall similar compared to CXR 01/11/2022. ? Consider follow-up CT chest for direct comparison.? ? ? Dictated by: Eliseo Saeed M.D. on 02/12/2022 at 11:11 ? ? CT scan - chest: Radiologist's Impression: CT Scan Report Signed Patient: Segun Hernandez MR#: [id number] : 1950 Acct:[id number] Age/Sex: 71 / M Date of Service: 02/12/22 Loc: ED Accession Number: [id number] ?? Procedure: CT angio chest PE protocol Ordering Provider: Mima Bustamante D.O. PROCEDURE:? CT ANGIO CHEST PE PROTOCOL ? INDICATIONS:? increased sob with MAC pneumonia, ? TECHNIQUE:? After the administration of intravenous contrast, 2 mm thick sections acquired from the pulmonary apices to the posterior costophrenic angles.? 3-dimensional maximum intensity projection (MIP) coronal and sagittal reformats were then acquired through the thorax.? For radiation dose reduction, the following was used:? automated exposure control, adjustment of mA and/or kV according to patient size.? ? COMPARISON:? [facility], CT, CT ANGIO CHEST ABDOMEN PELVIS, 07/18/2021, 5:27.? [facility], CT, CT CHEST WITHOUT CONTRAST, 01/27/2022, 16:39. ? FINDINGS:? Image quality:? Excellent.? ? Pulmonary arteries:? Pulmonary arteries are normal in size, and demonstrate no intraluminal filling defects to suggest central pulmonary embolism.? ? Lungs and pleura:? Multiple pulmonary nodules.? For example: -right lower lobe pulmonary nodule measuring 1.4 cm, (6/152), previously 1.5 cm and not seen on 07/18/2021. -right upper lobe 0.9 cm, (6/68), previously 0.8 cm, and not seen remotely. -left upper lobe 0.9 cm, (6/140), previously ill-defined opacity in this region. A few of these pulmonary nodules have a cavitary appearance.? ? New ground-glass patchy opacity most pronounced at the right lower lobe, (6/167). ? No pleural effusions or pneumothorax.? Central and peripheral airways are patent.? ? Mediastinum:? Heart size is normal.? Increased small pericardial effusion.? Enlarged subcarinal lymph node.? Thoracic aorta is normal in caliber and enhancement.? Esophagus is normal in caliber, without hiatal hernia.? ? Bones and chest wall:? No suspicious bony lesions.? Ribs and thoracic spine appear intact throughout.? Thyroid gland is unremarkable.? No axillary or supraclavicular adenopathy.? ? Abdomen:? Visualized upper abdominal solid organs appear normal in the early arterial phase of enhancement.? ? IMPRESSION:? 1. No pulmonary embolism. ? 2. New patchy ground-glass opacity most pronounced in the right lower lobe.? This is suspicious for pneumonia. ? 3. Numerous scattered pulmonary nodules.? Some of which have a cavitary appearance.? Overall these are similar in size and number compared to 01/27/2022.? These remain indeterminate and could be seen in infectious/inflammatory etiology or metastatic disease. ? 4. Enlarged subcarinal lymph node is indeterminate. ? ? ? Dictated by: Eliseo Saeed M.D. on 02/12/2022 at 12:23 ? ? ECG Data Attestation: I personally reviewed and interpreted this ECG as follows: Interpretation: Sinus rhythm rate 63 SC interval 202 QRS [address] changes no T-wave inversions similar to previous EKG MDM Narrative Medical decision making narrative: Patient presents today with worsening weakness and fatigue. 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 Blood work today is overall reassuring he is afebrile without leukocytosis normal procalcitonin. BNP is actually lower than what has been previously, no evidence of acute exacerbation. Troponin is also negative. 1300 Dr. Bird infectious Disease has been updated on patient's symptoms and test results. She is familiar with the patient's case and is reviewing his for. She states no indication to start antibiotic therapy today day but she is happy to see him tomorrow at 3:30 p.m. and the office. Have discussed this plan with patient. He is in agreeance to not start treatment at this time but will see infectious disease tomorrow. He certainly does not meet any admission criteria today. Discharge Plan Departure Patient Disposition: Home Clinical Impression: Pneumonia Instructions: DI for Atypical Pneumonia Activity Restrictions/Additional Instructions: *You have been diagnosed with pneumonia *What to do: On story that you do not feel well. I spoke with the infectious disease doctor who is happy to see you tomorrow. At this time she would like to see you before starting you on therapy. *Continue to take medications as directed [place] 1 tablet every 6 hours if needed for severe pain--> SENT TO [facility] *Follow up with your primary care provider in 2-3 days or call [phone] Dr. Bird tomorrow at 3:30 pm [address] [facility] in the [facility] in the Urgent Care Center, *Return to ER if you should have fever, oxygen less than 90%, chest pain or any new, worsening or concerning symptoms CONTROLLED SUBSTANCE DISCHARGE (Narcotoic/benzodiazepine/Flexeril/Phenergan) 1. You have been prescribed narcotic medications, it does have acetaminophen/Tylenol/paracetamol in it, DO NOT TAKE MORE THAN 4,00mg in 24 hours of Tylenol. TRAMADOL DOES NOT CONTAIN TYLENOL 2. Please understand that we cannot provide further refills of narcotics, benzodiazepines or controlled substances through the ED and her pain management will need to be through your provider. 3. While on these medications you cannot drive or operate heavy machinery. 4. You cannot sign legal documents or perform any duties such as this. 5. As long as you're taking opiate pain medications he should also be taking a stool softener such as Colace, Dulcolax, MiraLAX or prune juice, to help avoid constipation. Prescriptions: New hydrocodone-acetaminophen 5-325 mg tablet 1 tab PO Q6H PRN (Reason: pain) Qty: 10 0RF No Action nitroglycerin 0.4 mg tablet, sublingual 0.4 mg sublingual Q5M PRN0RF Rx Instructions: do not exceed 3 doses per episode metoprolol succinate 25 mg capsule,sprinkle,ER 24hr 25 mg PO DAILY 0RF amlodipine 10 mg tablet 10 mg PO QAM Qty: 90 1RF cholecalciferol (vitamin D3) 250 mcg (10,000 unit) capsule 250 mcg PO QAM 0RF ascorbate calcium (vitamin C) 500 mg tablet 500 mg PO BID 0RF lglplvel-ZVP-gchix-hyaluron ac [id number] mg tablet 1 tab PO BID 0RF potassium chloride 10 mEq tablet extended release 60 meq PO QAM 0RF aspirin [Adult Low Dose Aspirin] 81 mg tablet,delayed release (DR/EC) 81 mg PO DAILY 0RF rosuvastatin 10 mg tablet 10 mg PO 0RF carvedilol 3.125 mg tablet 3.125 mg PO 0RF triamterene 50 mg capsule 50 mg PO 0RF pantoprazole 40 mg tablet,delayed release (DR/EC) PO 0RF coenzyme Q10 100 mg capsule 100 mg PO DAILY 0RF multivitamin Tablet 1 tab PO DAILY 0RF Restore Lorena PO 0RF CBD PO 0RF dutasteride 0.5 mg capsule 0.5 mg PO QAM 0RF tamsulosin [Flomax] 0.4 mg capsule 0.4 mg PO QAM 0RF losartan 50 mg tablet 25 mg PO BID 0RF Referrals: Irwin Amador DO [Primary Care Provider] -
[2022-02-12 10:57] LABS: Lactate (Lactic Acid) 1.9 mmol/L (0.7-2.1)
[2022-02-12 10:58] LABS: Add Manual Diff / Slide Review NO; Basophils Absolute Auto 0 /uL (0-100); Basophils Percent Auto 0.5 % (0-2); Eosinophils Absolute Auto 100 /uL (0-450); Eosinophils Percent Auto 1.9 % (2-4); Hematocrit 35.9 % (41-53); Hemoglobin 12.2 g/dL (13.5-17.5); Lymphocytes Absolute Auto 600 /uL (1100-4500); Lymphocytes Percent Auto 11.6 % (25-40); Mean Corpuscular Hemoglobin 28.4 PG (26-34); Mean Corpuscular Volume 83.5 fL (80-100); Monocytes Absolute Auto 600 /uL (0-900); Monocytes Percent Auto 11.2 % (3-14); Neutrophils Absolute Auto 3900 /uL (1500-7000); Neutrophils Percent Auto 74.8 % (50-75); Platelet Count 192 X10^3/uL (150-400); Red Cell Distribution Width 13.8 % (11.6-14.8); White Blood Cell Count 5.3 X10^3/uL (4.5-11.0)
[2022-02-12 10:59] LABS: Alanine Aminotransferase 17 IU/L (<50); Albumin 3.9 g/dL (3.5-5.0); Albumin Globulin Ratio 1.4 (1.0-2.8); Alkaline Phosphatase 85 U/L (38-126); Aspartate Aminotransferase 63 IU/L (17-59); BUN Creatinine Ratio 17.6 (6-22); Bilirubin Total 0.5 mg/dL (0.2-1.3); Blood Urea Nitrogen 23 mg/dL (9-20); Calcium 9.1 mg/dL (8.4-10.2); Carbon Dioxide 28 mmol/L (22-32); Chloride 102 mmol/L (98-107); Estimated Glomerular Filt Rate 57 mL/min (>60); Globulin 2.8 g/dL (1.7-4.1); Glucose 119 mg/dL (80-110); HEMOLYSIS < 15 (0-50); Potassium 3.7 mmol/L (3.4-5.1); Sodium 136 mmol/L (137-145); Total Protein 6.7 g/dL (6.3-8.2)
[2022-02-12 11:18] LABS: D Dimer < 200 ng/mL (<230)
[2022-02-12] MEDS: MORPHINE 2 MG/ML INJ IV (11:23)
--- NOTE | 2022-02-12 11:23 | DI.CT.S_ITS ---
PROCEDURE: CT ANGIO CHEST PE PROTOCOL INDICATIONS: increased sob with MAC pneumonia, TECHNIQUE: After the administration of intravenous contrast, 2 mm thick sections acquired from the pulmonary apices to the posterior costophrenic angles. 3-dimensional maximum intensity projection (MIP) coronal and sagittal reformats were then acquired through the thorax. For radiation dose reduction, the following was used: automated exposure control, adjustment of mA and/or kV according to patient size. COMPARISON: [facility], CT, CT ANGIO CHEST ABDOMEN PELVIS, 07/18/2021, 5:27. [facility], CT, CT CHEST WITHOUT CONTRAST, 01/27/2022, 16:39. FINDINGS: Image quality: Excellent. Pulmonary arteries: Pulmonary arteries are normal in size, and demonstrate no intraluminal filling defects to suggest central pulmonary embolism. Lungs and pleura: Multiple pulmonary nodules. For example: -right lower lobe pulmonary nodule measuring 1.4 cm, (6/152), previously 1.5 cm and not seen on 07/18/2021. -right upper lobe 0.9 cm, (6/68), previously 0.8 cm, and not seen remotely. -left upper lobe 0.9 cm, (6/140), previously ill-defined opacity in this region. A few of these pulmonary nodules have a cavitary appearance. New ground-glass patchy opacity most pronounced at the right lower lobe, (6/167). No pleural effusions or pneumothorax. Central and peripheral airways are patent. Mediastinum: Heart size is normal. Increased small pericardial effusion. Enlarged subcarinal lymph node. Thoracic aorta is normal in caliber and enhancement. Esophagus is normal in caliber, without hiatal hernia. Bones and chest wall: No suspicious bony lesions. Ribs and thoracic spine appear intact throughout. Thyroid gland is unremarkable. No axillary or supraclavicular adenopathy. Abdomen: Visualized upper abdominal solid organs appear normal in the early arterial phase of enhancement. IMPRESSION: 1. No pulmonary embolism. 2. New patchy ground-glass opacity most pronounced in the right lower lobe. This is suspicious for pneumonia. 3. Numerous scattered pulmonary nodules. Some of which have a cavitary appearance. Overall these are similar in size and number compared to 01/27/2022. These remain indeterminate and could be seen in infectious/inflammatory etiology or metastatic disease. 4. Enlarged subcarinal lymph node is indeterminate. Dictated by: Eliseo Saeed M.D. on 02/12/2022 at 12:23 Approved by: Eliseo Saeed M.D. on 02/12/2022 at 12:34
[2022-02-12 11:45] LABS: Creatine Kinase 56 U/L (55-170)
[2022-02-12 11:58] LABS: NT-proBNP (BNP-Adult 18+) 1660 pg/mL (<125); Troponin I < 0.012 ng/mL (0.01-0.034)
[2022-02-12 12:03] LABS: Procalcitonin 0.06 ng/mL (<0.5)
== END 2022-02-12 13:48 | disposition home or self-care (01) ==
PROVIDERS: Emergency Provider Emergency Medicine; PCP Family Medicine
DX: J18.9 Pneumonia, unspecified organism (principal); R53.1 Weakness; R06.02 Shortness of breath
CPT/HCPCS: 36415; 71046; 71275; 80053; 81003; 82550; 83605; 83880; 84145; 84484; 85025; 85379; 87040; 93005; 93010; 96374; 99284; J2270; Q9967

== ENCOUNTER → 2022-05-30 10:51 | Outpatient (CLI) | payer MEDICARE, OTHER, SELFPAY ==
--- NOTE | 2022-05-30 | DI.US.S_ITS ---
PROCEDURE: US RENAL COMPLETE INDICATIONS: RENAL CYST ACQUIRED TECHNIQUE: Real-time scanning was performed of the kidneys and bladder, with image documentation. COMPARISON: [facility], CT, CT ANGIO CHEST PE PROTOCOL, 02/12/2022, 11:45. FINDINGS: Kidneys: Kidneys are normal in size. Right kidney measures 20 cm long (including inferior pole cyst); left kidney measures 10.3 cm long. Right renal cortical thickness is 1.7 cm; left renal cortical thickness is 1.3 cm. Renal cortical echotexture is normal. No hydronephrosis or nephrolithiasis. Multiple cysts are seen in both kidneys. A simple anechoic cyst in the superior pole of the right kidney measures 4.4 x 8.9 x 4.5 cm. A mid/inferior pole anechoic cyst in the right kidney measures 13.6 x 11.1 x 8.8 cm. The largest cyst on the left measures 1.4 x 1.1 x 1.0 cm. No suspicious solid mass lesions. Bladder: Pre-void bladder volume is 192 mL. Post-void residual is 39 mL. Pre-void images demonstrate no intraluminal masses or stones. Miscellaneous: No free pelvic fluid. IMPRESSION: Multiple simple bilateral renal cysts. No solid masses. Dictated by: Moe Vickers M.D. on 05/30/2022 at 16:26 Approved by: Moe Vickers M.D. on 05/30/2022 at 17:33
== END ==
PROVIDERS: PCP Family Medicine; Referring Provider Urology; Visit Provider Urology
DX: N28.1 Cyst of kidney, acquired (principal)
CPT/HCPCS: 76770

== ENCOUNTER 2022-07-01 13:09 | Emergency (ER) | payer MEDICARE, OTHER, SELFPAY ==
[2022-07-01] VITALS (8 sets, daily range): BP systolic 143–165; BP diastolic 70–87; PULSE 55–80; RESP 18–19; TEMP 36.4; O2SAT 95–98; BMI 21.9
--- NOTE | 2022-07-01 13:22 | DI.RAD.S_ITS ---
PROCEDURE: XR CHEST 1V INDICATIONS: chest pain TECHNIQUE: One view of the chest was acquired. COMPARISON: [facility], CR, XR CHEST 2V, 02/12/2022, 10:25. FINDINGS: Surgical changes and devices: None. Lungs and pleura: Bilateral chronic interstitial changes noted with peripheral right interstitial infiltrate, similar prior exam. Mediastinum: Mediastinal contours appear normal. Heart size is normal. Dense coronary artery vascular calcification present. Atherosclerotic vascular calcification noted in the aortic arch. Bones and chest wall: No suspicious bony lesions. Overlying soft tissues appear unremarkable. IMPRESSION: Peripheral right interstitial infiltrate, similar to the prior exam Approved by: Randy Barajas M.D. on 07/01/2022 at 13:55
[2022-07-01 13:38] LABS: Add Manual Diff / Slide Review NO; Basophils Absolute Auto 0 /uL (0-100); Basophils Percent Auto 0.7 % (0-2); Eosinophils Absolute Auto 100 /uL (0-450); Eosinophils Percent Auto 2.1 % (2-4); Hematocrit 38.4 % (41-53); Hemoglobin 12.9 g/dL (13.5-17.5); Lymphocytes Absolute Auto 800 /uL (1100-4500); Lymphocytes Percent Auto 14.6 % (25-40); Mean Corpuscular HGB Conc 33.6 % (30-36); Mean Corpuscular Hemoglobin 28.1 PG (26-34); Mean Corpuscular Volume 83.6 fL (80-100); Monocytes Absolute Auto 500 /uL (0-900); Monocytes Percent Auto 8.8 % (3-14); Neutrophils Absolute Auto 4200 /uL (1500-7000); Neutrophils Percent Auto 73.8 % (50-75); Platelet Count 203 X10^3/uL (150-400); Red Blood Cell Count 4.59 X10^6/uL (4.5-5.9); Red Cell Distribution Width 13.7 % (11.6-14.8); White Blood Cell Count 5.7 X10^3/uL (4.5-11.0)
[2022-07-01 13:56] LABS: Alanine Aminotransferase 19 IU/L (<50); Albumin 4.2 g/dL (3.5-5.0); Albumin Globulin Ratio 1.4 (1.0-2.8); Alkaline Phosphatase 87 U/L (38-126); Aspartate Aminotransferase 39 IU/L (17-59); BUN Creatinine Ratio 16.2 (6-22); Bilirubin Total 0.7 mg/dL (0.2-1.3); Blood Urea Nitrogen 17 mg/dL (9-20); Carbon Dioxide 24 mmol/L (22-32); Chloride 104 mmol/L (98-107); Creatine Kinase 79 U/L (55-170); Estimated Glomerular Filt Rate > 60 mL/min (>60); Glucose 108 mg/dL (80-110); HEMOLYSIS < 15 (0-50); Lipase 32 U/L (23-300); Magnesium 2.2 mg/dL (1.6-2.3); Potassium 3.9 mmol/L (3.4-5.1); Sodium 139 mmol/L (137-145); Total Protein 7.2 g/dL (6.3-8.2)
[2022-07-01 14:08] LABS: Troponin I < 0.012 ng/mL (0.01-0.034)
[2022-07-01 14:56] LABS: Lactate (Lactic Acid) 0.7 mmol/L (0.7-2.1)
--- NOTE | 2022-07-01 16:43 | PC.NURSE ---
Ambulated with RT Aleah per provider request. Pt was 97% RA at rest prior to walking. Walked for about 5 mins with lowest saturation of 96% RA. Highest of 98% RN. No SOB seen or reported by pt per RT Aleah.
--- NOTE | 2022-07-01 18:41 | ED.GENADULT ---
HPI - General Adult General Chief complaint: Shortness of Breath/Dyspnea Stated complaint: pulse ox is 85 drops to 75 pulse down to 49 Time Seen by Provider: 07/01/22 16:30 Source: patient Mode of arrival: Ambulatory History of Present Illness HPI narrative: 72-year-old male. Has a history of a mycobacterium lung infection. Is scheduled to see a specialist in this area. His on inhaled medications. Has a pulse ox at home. He states that he occasionally has readings where his pulse ox is in the mid 80s to upper 70s. He states he does get somewhat short of breath when he walks. The time of my exam he was not short of breath. Denies chest pain. No cough. Did recently have a flu shot and a COVID vaccine. No lower extremity swelling. No change in medications recently. Related Data Home Medications Medication Instructions Recorded Confirmed ascorbate calcium (vitamin C) 500 500 mg PO BID 07/07/20 01/13/22 mg tablet cholecalciferol (vitamin D3) 250 250 mcg PO QAM 07/07/20 01/13/22 mcg (10,000 unit) capsule glucosamine 750 mg-MSM 60 1 tab PO BID 07/07/20 01/13/22 mg-chondroit 150 mg-hyaluron ac 1 mg tablet dutasteride 0.5 mg capsule 0.5 mg PO QAM 07/10/21 01/13/22 tamsulosin 0.4 mg capsule (Flomax) 0.4 mg PO QAM 07/10/21 01/13/22 metoprolol succinate 25 mg capsule 25 mg PO DAILY 07/25/21 01/13/22 [place], ext. release 24 hr nitroglycerin 0.4 mg sublingual 0.4 mg sublingual Q5M PRN 07/25/21 01/13/22 tablet potassium chloride 10 mEq 60 meq PO QAM 10/21/21 01/13/22 tablet,extended release CBD PO 01/13/22 Restore Lorena PO 01/13/22 aspirin 81 mg tablet,delayed 81 mg PO DAILY 01/13/22 01/13/22 release (Adult Low Dose Aspirin) carvedilol 3.125 mg tablet 3.125 mg PO 01/13/22 01/13/22 coenzyme Q10 100 mg capsule 100 mg PO DAILY 01/13/22 01/13/22 losartan 50 mg tablet 25 mg PO BID 01/13/22 01/13/22 multivitamin 1 tab PO DAILY 01/13/22 01/13/22 pantoprazole 40 mg tablet,delayed mg PO 01/13/22 01/13/22 release rosuvastatin 10 mg tablet 10 mg PO 01/13/22 01/13/22 triamterene 50 mg capsule 50 mg PO 01/13/22 01/13/22 Previous Rx's Medication Instructions Recorded amlodipine 10 mg tablet 10 mg PO QAM #90 tabs 08/08/21 hydrocodone 5 mg-acetaminophen 325 1 tab PO Q6H PRN pain #10 tabs 02/12/22 mg tablet Allergies Allergy/AdvReac Type Severity Reaction Status Date / Time latex Allergy Rash Verified 02/12/22 10:17 Review of Systems Constitutional Constitutional: Reports system reviewed and no additional complaints, except as documented Cardiovascular Cardiovascular: Reports system reviewed and no additional complaints, except as documented Respiratory Respiratory: Reports system reviewed and no additional complaints, except as documented Integumentary/Breasts Skin/Breast: Reports system reviewed and no additional complaints, except as documented Hematologic/Lymphatic On Anticoagulants: No Patient History Medical History Abdominal bloating Actinic keratoses Acute pain of left shoulder Adverse reaction to antibiotic Anxiety about health Aortic aneurysm, abdominal Aortic regurgitation (1994) Benign prostatic hyperplasia BRBPR (bright red blood per rectum) Cardiac arrhythmia Cerumen impaction Cervical somatic dysfunction Chronic pain of left ankle Chronic right shoulder pain Chronic thoracic back pain Constipation Cranial somatic dysfunction BROWN (dyspnea on exertion) Elevated PSA Fecal incontinence Frequent loose stools Gallbladder polyp GERD (gastroesophageal reflux disease) Gluten enteropathy Gout Hiatal hernia Hypothyroidism Low testosterone Lumbar region somatic dysfunction Medication side effects present Mycobacterial disease, pulmonary Onychomycosis Other stressful life events affecting family and household Pancreatitis Pelvic somatic dysfunction Pulmonary Mycobacterium avium complex (MAC) infection Renal cyst Resistant hypertension Sacral region somatic dysfunction Scoliosis Scoliosis of thoracic spine Segmental and somatic dysfunction of abdomen and other regions Segmental and somatic dysfunction of rib cage Segmental and somatic dysfunction of upper extremity Shoulder pain Skin rash Sleep disorder Somatic dysfunction of lower extremity Stiff neck Stress due to illness of family member Thoracic region somatic dysfunction Surgical History Anesthesia Ankle fracture (1978) History of eyelid surgery (2016) History of pancreatic surgery (1994) Family History Brother Age: 65 No problems noted. Father Heart disease Mental health problem Smoker Alcoholic Brother No problems noted. Grandfather Cancer Grandmother No problems noted. Mother No problems noted. Grandfather Fall from roof Grandmother Cancer Sister Overweight Sister No problems noted. Social History marital status: number of children: 0 household members: none lives independently: Yes caregiver/support person: No housing: house Smoking Status: Never smoker second hand exposure: No alcohol intake: never substance use type: does not use Smoking Status: Never smoker alcohol intake frequency: 0-2 drinks per day Substance Use Type: does not use Exam Initial Vital Signs Initial Vital Signs: Vital Signs Temperature 97.6 F 07/01/22 13:16 Pulse Rate 71 07/01/22 13:16 Respiratory Rate 18 07/01/22 13:16 Blood Pressure 165/87 H 07/01/22 13:16 Pulse Oximetry 98 07/01/22 13:16 Oxygen Delivery Method 07/01/22 13:16 HENMT Head: normal to inspection Resp Effort & Inspection: normal respiratory effort Auscultation: clear to auscultation bilaterally Cardio Rate: regular rate Rhythm: regular rhythm Skin General: no rashes or lesions noted Neuro General: patient alert and patient awake Extrem General: normal to inspection and capillary refill normal Psych Appearance: grossly normal Course Orders Ordered: ED Orders 07/01/22 14:20 Blood Culture Stat Lactate (Lactic Acid) Stat Vital Signs Vital signs: Vital Signs - 8 hr 07/01/22 15:44 07/01/22 15:47 07/01/22 15:47 Pulse Rate 61 Respiratory Rate Blood Pressure 155/84 H Pulse Oximetry 95 97 07/01/22 16:00 07/01/22 16:00 07/01/22 16:30 Pulse Rate 59 L Respiratory Rate Blood Pressure 145/83 H 143/76 H Pulse Oximetry 97 07/01/22 16:30 07/01/22 17:00 07/01/22 17:00 Pulse Rate 55 L 64 Respiratory Rate Blood Pressure 153/87 H Pulse Oximetry 97 97 07/01/22 17:30 07/01/22 17:30 Pulse Rate 61 Respiratory Rate 19 Blood Pressure 145/70 H Pulse Oximetry 98 Medical Decision Making Lab Data Lab results reviewed: Yes I reviewed the patient's lab results. Result diagrams: 07/01/22 13:30 07/01/22 13:30 Labs: Lab Results 07/01/22 07/01/22 07/01/22 Range/Units 13:30 13:30 14:20 WBC 5.7 (4.5-11.0) X10^3/uL RBC 4.59 (4.5-5.9) X10^6/uL Hgb 12.9 L (13.5-17.5) g/dL Hct 38.4 L (41-53) % MCV 83.6 (80-100) fL MCH 28.1 (26-34) PG MCHC 33.6 (30-36) % RDW 13.7 (11.6-14.8) % Plt Count 203 (150-400) X10^3/uL Neut % (Auto) 73.8 (50-75) % Lymph % (Auto) 14.6 L (25-40) % Dickinson % (Auto) 8.8 (3-14) % Eos % (Auto) 2.1 (2-4) % Baso % (Auto) 0.7 (0-2) % Neut # (Auto) 4200 (4221-4006) /uL Lymph # (Auto) 800 L (8966-6974) /uL Dickinson # (Auto) 500 (0-900) /uL Eos # (Auto) 100 (0-450) /uL Baso # (Auto) 0 (0-100) /uL Sodium 139 (137-145) mmol/L Potassium 3.9 (3.4-5.1) mmol/L Chloride 104 (98-107) mmol/L Carbon Dioxide 24 (22-32) mmol/L BUN 17 (9-20) mg/dL Creatinine 1.05 (0.66-1.25) mg/dL Estimated GFR > 60 (>60) mL/min BUN/Creatinine Ratio 16.2 (6-22) Glucose 108 (80-110) mg/dL Lactate 0.7 (0.7-2.1) mmol/L Calcium 9.0 (8.4-10.2) mg/dL Magnesium 2.2 (1.6-2.3) mg/dL Total Bilirubin 0.7 (0.2-1.3) mg/dL AST 39 (17-59) IU/L ALT 19 (<50) IU/L Alkaline Phosphatase 87 (38-126) U/L Total Creatine Kinase 79 (55-170) U/L CK-MB (CK-2) TNP CK-MB (CK-2) Rel Index TNP Troponin I < 0.012 (0.01-0.034) ng/mL Total Protein 7.2 (6.3-8.2) g/dL Albumin 4.2 (3.5-5.0) g/dL Globulin 3.0 (1.7-4.1) g/dL Albumin/Globulin Ratio 1.4 (1.0-2.8) Lipase 32 (23-300) U/L Imaging Data Chest x-ray: Radiologist's Impression: [address] [id number] XRay Report Signed Patient: Segun Hernandez MR#: [id number] : 1950 Acct:[id number] Age/Sex: 72 / M Date of Service: 07/01/22 Loc: ED Accession Number: [id number] ?? Procedure: XR chest 1V Ordering Provider: Vidhya Pardo MD PROCEDURE:? XR CHEST 1V ? INDICATIONS:? chest pain ? TECHNIQUE:? One view of the chest was acquired.? ? COMPARISON:? [facility], CR, XR CHEST 2V, 02/12/2022, 10:25. ? FINDINGS:? ? Surgical changes and devices:? None.? ? Lungs and pleura:? Bilateral chronic interstitial changes noted with peripheral right interstitial infiltrate, similar prior exam. ? Mediastinum:? Mediastinal contours appear normal.? Heart size is normal.? Dense coronary artery vascular calcification present.? Atherosclerotic vascular calcification noted in the aortic arch. ? Bones and chest wall:? No suspicious bony lesions.? Overlying soft tissues appear unremarkable.? ? IMPRESSION:? ? Peripheral right interstitial infiltrate, similar to the prior exam ? ? ? Approved by: Randy Barajas M.D. on 07/01/2022 at 13:55? ECG Data Attestation: I personally reviewed and interpreted this ECG as follows: Interpretation: Sinus rhythm Ventricular rate is 66 Normal axis Normal QRS Normal QTC No ST T wave changes MDM Narrative Medical decision making narrative: Clear lungs, no respiratory distress, unremarkable EKG, unremarkable chest x-ray, unremarkable labs, not hypoxic while lying in the gurney. Ambulate around the emergency department without hypoxia. Low suspicion for ACS. No indication for antibiotics/change in medications. Provided reassurance to the patient. No indication for admission to the hospital. Was given return precautions. Expressed understanding and agreement. Discharge Plan Departure Patient Disposition: Home Clinical Impression: Shortness of breath Instructions: DI for Shortness of Breath Activity Restrictions/Additional Instructions: Recommend that you continue to take all of your medications as directed and contact your primary doctor for a follow-up. Return to the emergency department for any new or worsening symptoms. Prescriptions: No Action nitroglycerin 0.4 mg tablet, sublingual 0.4 mg sublingual Q5M PRN Rx Instructions: do not exceed 3 doses per episode metoprolol succinate 25 mg capsule,sprinkle,ER 24hr 25 mg PO DAILY amlodipine 10 mg tablet 10 mg PO QAM Qty: 90 1RF cholecalciferol (vitamin D3) 250 mcg (10,000 unit) capsule 250 mcg PO QAM ascorbate calcium (vitamin C) 500 mg tablet 500 mg PO BID tlruurfw-TQB-ampwy-hyaluron ac [id number] mg tablet 1 tab PO BID potassium chloride 10 mEq tablet extended release 60 meq PO QAM aspirin [Adult Low Dose Aspirin] 81 mg tablet,delayed release (DR/EC) 81 mg PO DAILY rosuvastatin 10 mg tablet 10 mg PO carvedilol 3.125 mg tablet 3.125 mg PO triamterene 50 mg capsule 50 mg PO pantoprazole 40 mg tablet,delayed release (DR/EC) PO coenzyme Q10 100 mg capsule 100 mg PO DAILY multivitamin Tablet 1 tab PO DAILY Restore [place] PO CBD PO hydrocodone-acetaminophen 5-325 mg tablet 1 tab PO Q6H PRN (Reason: pain) Qty: 10 0RF dutasteride 0.5 mg capsule 0.5 mg PO QAM tamsulosin [Flomax] 0.4 mg capsule 0.4 mg PO QAM losartan 50 mg tablet 25 mg PO BID Referrals: Emanuel Amador DO [Primary Care Provider] - Visit Report Forms: Patient Portal/API
== END 2022-07-01 18:59 | disposition home or self-care (01) ==
PROVIDERS: Emergency Medicine; Emergency Provider Emergency Medicine; PCP Family Medicine
DX: R06.00 Dyspnea, unspecified (principal); R07.9 Chest pain, unspecified
CPT/HCPCS: 36415; 71045; 80053; 82550; 83605; 83690; 83735; 84484; 85025; 87040; 93005; 99283; 99284

== ENCOUNTER → 2022-09-25 09:54 | Outpatient (CLI) | payer MEDICARE, OTHER, SELFPAY ==
[2022-09-26 03:41] LABS: Hepatitis A Ab Total Negative (Negative)
== END ==
PROVIDERS: PCP Family Medicine; Referring Provider Family Medicine; Visit Provider Family Medicine
DX: Z20.5 Contact with and (suspected) exposure to viral hepatitis (principal)
CPT/HCPCS: 36415; 86708

== ENCOUNTER → 2022-12-19 07:06 | Outpatient (CLI) | payer MEDICARE, OTHER, SELFPAY ==
[2022-12-19 09:10] LABS: Alanine Aminotransferase 29 IU/L (<50); Aspartate Aminotransferase 29 IU/L (17-59); Cholesterol 129 mg/dL (140-199); Creatine Kinase 103 U/L (55-170); HDL Cholesterol 51 mg/dL (40-60); LDL Cholesterol Calculated 67 mg/dL (<100); Lactate Dehydrogenase 174 U/L (120-246); Triglycerides 57 mg/dL (35-150); VLDL Cholesterol Calculated 11 mg/dL (2-30)
[2022-12-19 09:16] LABS: HCG Quantitative /Beta subunit < 2.4 mIU/mL (<2.40)
[2022-12-19 09:21] LABS: LDL Cholesterol Direct 61 mg/dL (<100)
[2022-12-21 07:47] LABS: Alpha Fetoprotein 1.8 ng/mL (0.0-8.4)
[2022-12-25 14:02] LABS: Acetylcholine Receptor Bind AB <0.03 nmol/L (0.00-0.24)
== END ==
PROVIDERS: Internal Medicine Cardiovascular Disease; PCP Family Medicine; Referring Provider Surgery; Visit Provider Surgery
DX: I10 Essential (primary) hypertension (principal); J98.59 Other diseases of mediastinum, not elsewhere classified; A31.0 Pulmonary mycobacterial infection; Z01.810 Encounter for preprocedural cardiovascular examination; I50.32 Chronic diastolic (congestive) heart failure; I50.31 Acute diastolic (congestive) heart failure; E87.6 Hypokalemia; E78.5 Hyperlipidemia, unspecified
CPT/HCPCS: 36415; 80061; 82105; 82550; 83519; 83615; 83721; 84450; 84460; 84702

== ENCOUNTER → 2023-02-23 15:07 | Outpatient (CLI) | payer MEDICARE, OTHER, SELFPAY ==
[2023-02-23 15:54] LABS: Hematocrit 35.2 % (41-53); Hemoglobin 12.3 g/dL (13.5-17.5)
[2023-02-23 16:14] LABS: BUN Creatinine Ratio 15.5 (6-22); Blood Urea Nitrogen 20 mg/dL (9-20); Calcium 8.5 mg/dL (8.4-10.2); Carbon Dioxide 23 mmol/L (22-32); Chloride 107 mmol/L (98-107); Estimated Glomerular Filt Rate 58 mL/min (>60); Glucose 113 mg/dL (80-110); HEMOLYSIS < 15 (0-50); Potassium 4.1 mmol/L (3.4-5.1); Sodium 138 mmol/L (137-145)
[2023-02-23 17:59] LABS: Protein (Total) Urine Random 7 mg/dL (0-12); Protein Creatinine Ratio Urine 0.06 GRAM/24H
== END ==
PROVIDERS: PCP Family Medicine; Referring Provider Student in an Organized Health Care Education/Training Program; Visit Provider Student in an Organized Health Care Education/Training Program
DX: N05.9 Unspecified nephritic syndrome with unspecified morphologic changes (principal); D64.9 Anemia, unspecified; R80.9 Proteinuria, unspecified
CPT/HCPCS: 36415; 80048; 82570; 84156; 85014; 85018

== ENCOUNTER → 2023-02-27 16:01 | Outpatient (CLI) | payer MEDICARE, OTHER, SELFPAY ==
--- NOTE | 2023-02-27 | DI.RAD.S_ITS ---
PROCEDURE: XR CHEST 2V INDICATIONS: Dyspnea after thymectomy TECHNIQUE: 2 views of the chest were acquired. COMPARISON: [facility], CR, XR CHEST 1V, 07/01/2022, 14:00. FINDINGS: Surgical changes and devices: None. Lungs and pleura: Bilateral chronic interstitial changes are noted with scarring in the right lung base. Airspace opacity in the right lower lobe seen on the lateral view is seen. Diffuse infiltrate previously described in the right lung is resolved. Mediastinum: Mediastinal contours are normal. Heart size is normal. Coronary artery stents are noted. Bones and chest wall: No suspicious bony abnormalities. Soft tissues appear unremarkable. IMPRESSION: 1. Airspace opacity seen on the lateral view posterior to the heart suspicious for aspiration pneumonia. 2. Chronic scarring similar to the prior x-ray. Dictated by: Moe Vickers M.D. on 03/01/2023 at 12:10 Approved by: Moe Vickers M.D. on 03/01/2023 at 12:14
== END ==
PROVIDERS: PCP Family Medicine; Referring Provider Surgery; Visit Provider Surgery
DX: R06.09 Other forms of dyspnea (principal); Z98.890 Other specified postprocedural states; Z95.5 Presence of coronary angioplasty implant and graft
CPT/HCPCS: 71046

== ENCOUNTER → 2023-05-30 12:46 | Outpatient (CLI) | payer MEDICARE, OTHER, SELFPAY ==
--- NOTE | 2023-05-30 12:48 | DI.US.S_ITS ---
PROCEDURE: US SCROTUM INDICATIONS: RIGHT INGUINAL TENDER LUMP; LEFT SCROTAL LUMP TECHNIQUE: Real-time scanning was performed of the scrotum and testicles, with image documentation. Color and pulse Doppler interrogation was performed of both testicles. COMPARISON: None. FINDINGS: Right: Testicle is normal in size at 3.5 x 1.9 x 2.6 cm, and homogenous in echotexture. Epididymis is normal in overall size and morphology. Moderate right hydrocele versus spermatocele with septations and minimal internal echoes. Overlying scrotal skin is normal in thickness. Left: Testicle is normal in size at 3.7 x 1.5 x 2.3 cm, and homogeneous in echotexture. Epididymis is normal in overall size and morphology. Small hydrocele. Palpable lump within the lateral scrotal wall measuring 7 x 5 x 6 mm, consistent with a sebaceous cyst. Per patient, this has been present for 20 years. Doppler: Color and pulse Doppler demonstrate normal and symmetric arterial flow in both testicles. Area of interest within the right inguinal canal is within normal limits. Per patient, problem has resolved. IMPRESSION: 1. No abnormalities are seen within the right inguinal canal area of interest, per patient, this problem has resolved. 2. Moderate right hydrocele versus spermatocele with septations and minimal internal echoes. 3. Palpable lump within the left lateral scrotal wall measuring 7 mm, most consistent with a sebaceous cyst and stable for the past 20 years per patient. Dictated by: Adrian Grant M.D. on 05/30/2023 at 13:46 Approved by: Adrian Grant M.D. on 05/30/2023 at 13:54
== END ==
PROVIDERS: PCP Family Medicine; Referring Provider Pediatrics; Visit Provider Pediatrics
DX: N50.82 Scrotal pain (principal); R19.09 Other intra-abdominal and pelvic swelling, mass and lump; N50.9 Disorder of male genital organs, unspecified
CPT/HCPCS: 76870; 93975

== ENCOUNTER → 2023-05-31 08:16 | Outpatient (CLI) | payer MEDICARE, OTHER, SELFPAY | PROVIDERS: Family Provider Family Medicine; PCP Family Medicine; Referring Provider Internal Medicine Critical Care Medicine; Visit Provider Internal Medicine Critical Care Medicine | DX: R26.89 Other abnormalities of gait and mobility (principal) | CPT/HCPCS: 95886; 95910 ==

== ENCOUNTER → 2023-06-28 07:03 | Outpatient (CLI) | payer MEDICARE, OTHER, SELFPAY ==
[2023-06-28 08:48] LABS: BUN Creatinine Ratio 14.3 (6-22); Blood Urea Nitrogen 18 mg/dL (9-20); Calcium 8.9 mg/dL (8.4-10.2); Carbon Dioxide 26 mmol/L (22-32); Chloride 104 mmol/L (98-107); Estimated Glomerular Filt Rate 59 mL/min (>60); Glucose 91 mg/dL (80-110); HEMOLYSIS < 15 (0-50); Potassium 3.7 mmol/L (3.4-5.1); Sodium 138 mmol/L (137-145)
== END ==
PROVIDERS: Family Provider Family Medicine; PCP Family Medicine; Referring Provider Urology; Visit Provider Urology
DX: R31.21 Asymptomatic microscopic hematuria (principal)
CPT/HCPCS: 36415; 80048

== ENCOUNTER → 2023-07-04 10:46 | Outpatient (CLI) | payer MEDICARE, OTHER, SELFPAY ==
--- NOTE | 2023-07-04 10:48 | DI.CT.S_ITS ---
PROCEDURE: CT ABDOMEN PELVIS WO/W CON INDICATIONS: Asymptomatic microscopic hematuria/secondhand smoke TECHNIQUE: Optional 5 mm thick noncontrast images acquired from the diaphragm to the symphysis pubis. After the administration of intravenous contrast, 5 mm thick images acquired from the diaphragm to the symphysis pubis after a 10-minute delay. 2 mm thick coronal and sagittal reformats were then performed of the kidneys and ureters. For radiation dose reduction, the following was used: automated exposure control, adjustment of mA and/or kV according to patient size. COMPARISON: [facility], CT, CT ABDOMEN WITHOUT CONTRAST, 01/05/2022, 11:10. FINDINGS: Image quality: Excellent. Lung bases: Scattered opacities at the lung bases. Mild bronchiectasis. No pleural effusion. Three-vessel coronary artery calcifications. Trace pericardial fluid. Urinary system: Both kidneys are normal in size. Nonobstructing right kidney stone measuring 0.3 cm, (2/42). No perinephric fat stranding. There is normal bilateral renal enhancement. Bilateral benign renal cysts. Largest cyst in the right kidney measures 13.5 cm. Largest cyst on the left measures 1.4 cm. Right peripelvic cysts. No solid renal mass. Renal calyces appear normal in morphology when filled with contrast. Opacified portions of both ureters demonstrate normal caliber. No filling defect within the opacified portions of the ureters. Proximal right ureter is not opacified. Bladder wall thickness is normal. No calcified bladder stones. Median lobe hypertrophy of the prostate gland. Prostatomegaly. Other solid organs: Liver is normal in size and enhancement. Gallbladder is absent. Biliary system is non dilated. Pancreas enhances normally. Spleen is normal in size and enhancement. No adrenal nodules. Peritoneum and bowel: Bowel loops demonstrate normal wall thickness and caliber. Normal appendix. No free fluid or air. Nodes and vessels: No retroperitoneal or mesenteric adenopathy by size criteria. Aorta and inferior vena cava are normal in size. Abdominal wall: No ventral hernias. Pelvis: No pathologic free pelvic fluid. Small fat containing inguinal hernias. Bilateral hydroceles. No adenopathy. Bones: No suspicious bony lesions. No vertebral body compression fractures. IMPRESSION: 1. No hydronephrosis. Small nonobstructing right kidney stone. 2. No solid renal mass. Large benign right renal cyst measuring 13.5 cm. 3. No upper urinary tract filling defect. Dictated by: Eliseo Saeed M.D. on 07/04/2023 at 15:19 Approved by: Eliseo Saeed M.D. on 07/04/2023 at 15:31
== END ==
PROVIDERS: Family Provider Family Medicine; PCP Family Medicine; Referring Provider Urology; Visit Provider Urology
DX: R31.21 Asymptomatic microscopic hematuria (principal); Z77.22 Contact with and (suspected) exposure to environmental tobacco smoke (acute) (chronic); N20.0 Calculus of kidney; N28.1 Cyst of kidney, acquired
CPT/HCPCS: 74178; Q9967

== ENCOUNTER 2023-07-17 07:47 | Day surgery (SDC) | payer MEDICARE, OTHER, SELFPAY ==
[2023-07-16 09:40] VITALS: BMI 24.0
[2023-07-17 08:31] VITALS: BP 168/89; PULSE 58; RESP 16; TEMP 36.4; O2SAT 99; BMI 24.0
[2023-07-17] MEDS: LACTATED RINGERS 1,000 ML 42 ML IV (08:52)
--- NOTE | 2023-07-17 08:53 | PM.PREOP ---
Pre-operative Note COVID-19 COVID-19 status: Not tested Interval Note History & Physical reviewed/Exam performed by Physician: Yes Changes to H&P: No ASA Class (for procedural sedation): III
[2023-07-17] MEDS: CEFAZOLIN 2 GM/100 ML PREMIX 100 ML IV (09:26)
[2023-07-17] MEDS: BUPIVACAINE 0.5% (PF) 30 ML, EPINEPHrine 0.15 MG INJ (09:35)
[2023-07-17 10:30] VITALS: BP 107/71; PULSE 60; RESP 13; TEMP 36.4; O2SAT 94
--- NOTE | 2023-07-17 10:34 | PM.OP.1 ---
Operative Date/Time/Diagnoses Date of procedure: 07/17/23 Time of procedure: 10:34 Pre-op diagnosis: Right inguinal hernia Post-op diagnosis: same Procedure & Clinicians Procedure: Right inguinal hernia repair with mesh Same procedure as scheduled: Yes Surgeon: Joaquim Jaquez Anesthesia Type: General Operative Notes Procedure in detail: Preoperative antibiotic was administered. The patient was brought to the operating room and placed on the table in supine position general anesthesia was induced. The right groin was prepped and draped in the normal fashion and a time-out was performed. Roughly 10 mL of local anesthetic were injected into the skin and subcutaneous adipose tissue over the right groin. A 5 cm incision was made over the right inguinal canal. Dissection was carried down through the subcutaneous adipose tissue. We exposed the external oblique aponeurosis in the direction of the fibers. Additional local was injected deep to the aponeurosis. A 15 blade scalpel was used to hi the external oblique aponeurosis. Metzenbaum scissors were used to carefully open the aponeurosis in the direction of the fibers taking care not to injure the underlying ilioinguinal nerve. We completely exposed the inguinal canal. The cord was dissected free from the inguinal ligament and floor of the inguinal canal and the external oblique aponeurosis was dissected off of the internal oblique taking care not to injure the hypogastric nerve. We encircled the cord with a Basil drain for retraction. There was a an indirect hernia. The sac was dissected off of the cord structures along with a cord lipoma and both were reduced back into the abdomen through the internal ring. There was also a small direct hernia arising from middle of the floor of the canal. We then placed a polypropylene mesh against the floor of the inguinal canal. The mesh was secured with multiple interrupted 3-0 Prolene sutures to the pubic tubercle and shelving edge of the inguinal ligament as well as to the conjoint tendon medially. We overlapped the tails to recreate an internal ring and secured the medial tail to the inguinal ligament with additional sutures. We injected some more local into the fatty tissue in the inguinal canal and cord. Finally, we removed the [place] drain and closed the external oblique fascia with a running 3-0 Vicryl suture. Skin was closed with interrupted 3-0 Vicryl dermal sutures and a running 4 Monocryl subcuticular stitch. EBL 5 mL The patient was awakened and brought to recovery room. Post-operative Condition: stable Disposition: PACU
[2023-07-17 10:35] VITALS: BP 106/69; PULSE 67; RESP 13; TEMP 36.4; O2SAT 95
[2023-07-17 10:40] VITALS: BP 98/65; PULSE 63; RESP 15; TEMP 36.4; O2SAT 95
[2023-07-17 10:47] VITALS: BP 102/66; PULSE 64; RESP 22; TEMP 36.4; O2SAT 96
== END 2023-07-17 11:13 | disposition home or self-care (01) ==
PROVIDERS: Family Provider Family Medicine; PCP Family Medicine; Referring Provider Surgery; Visit Provider Surgery
PROC: (CPT 49505; principal; 2023-07-17 09:15)
DX: K40.90 Unilateral inguinal hernia, without obstruction or gangrene, not specified as recurrent (principal); D17.6 Benign lipomatous neoplasm of spermatic cord
CPT/HCPCS: 49505; J0171; J0690; J1100; J2405; J2704; J3010

== ENCOUNTER → 2023-10-25 09:26 | Outpatient (CLI) | payer MEDICARE, OTHER, SELFPAY ==
[2023-10-30 19:13] LABS: Pancreatic Elastase, Fecal 130 (>200)
== END ==
PROVIDERS: Family Provider Family Medicine; PCP Family Medicine; Referring Provider Internal Medicine Critical Care Medicine; Visit Provider Internal Medicine Critical Care Medicine
DX: Z87.19 Personal history of other diseases of the digestive system (principal)
CPT/HCPCS: 82656

== ENCOUNTER → 2023-11-01 15:12 | Outpatient (CLI) | payer MEDICARE, OTHER, SELFPAY ==
--- NOTE | 2023-11-01 15:30 | DI.US.S_ITS ---
PROCEDURE: US RENAL COMPLETE INDICATIONS: FOLLOW UP BILATERAL RENAL CYST TECHNIQUE: Real-time scanning was performed of the kidneys and bladder, with image documentation. COMPARISON: [facility], , US RENAL COMPLETE, 05/30/2022, 11:15. FINDINGS: Kidneys: Kidneys are normal in size. Right kidney measures 20.2 cm long; left kidney measures 10.2 cm long. Right renal cortical thickness is 1.4 cm; left renal cortical thickness is 1.5 cm. Renal cortical echotexture is normal. No hydronephrosis. There are left nonobstructive calculi. There are multiple bilateral renal cysts. The largest on the right is redemonstrated and measures 13.2 x 13.5 x 0.7 cm. There is also a septated parapelvic cyst which measures 5.3 x 5.5 x 5.4 cm. This is increased from the prior ultrasound in 2021 where this measured 4.4 x 3.9 x 4.5 cm. The largest cyst on the left measures 1.3 x 1.0 x 1.1 cm. Bladder: Pre-void bladder volume was not obtained as the patient voided prior to the procedure. Post-void residual is 72.3 mL. Pre-void images demonstrate no intraluminal masses or stones. On pre-void images, neither ureteral jets are noted with color Doppler interrogation. (Of note, ureteral jets may not be detectable in up to 25% of cases due to insufficient differences in specific gravity between ureteral and bladder urine). Miscellaneous: No free pelvic fluid. IMPRESSION: 1. Multiple large right renal cysts. The septated parapelvic cyst is increased from the study dated May 30, 2022. 2. Nonobstructive left nephrolithiasis. 3. Questionable moderate postvoid residual. However, the patient was not prepped for interrogation of the bladder. Dictated by: Magda Lynn M.D. on 11/01/2023 at 16:22 Approved by: Magda Lynn M.D. on 11/01/2023 at 16:25
[2023-11-01 17:19] LABS: BUN Creatinine Ratio 17.1 (6-22); Blood Urea Nitrogen 22 mg/dL (9-20); Calcium 8.6 mg/dL (8.4-10.2); Carbon Dioxide 28 mmol/L (22-32); Chloride 103 mmol/L (98-107); Estimated Glomerular Filt Rate 58 mL/min (>60); Glucose 91 mg/dL (80-110); HEMOLYSIS < 15 (0-50); Potassium 3.6 mmol/L (3.4-5.1); Sodium 137 mmol/L (137-145)
== END ==
PROVIDERS: Internal Medicine Critical Care Medicine; Family Provider Family Medicine; PCP Family Medicine; Referring Provider Urology; Visit Provider Urology
DX: N28.1 Cyst of kidney, acquired (principal); N18.30 Chronic kidney disease, stage 3 unspecified; N20.0 Calculus of kidney
CPT/HCPCS: 36415; 76770; 80048

== ENCOUNTER → 2023-12-18 07:04 | Outpatient (CLI) | payer MEDICARE, OTHER, SELFPAY ==
[2023-12-18 08:16] LABS: Alanine Aminotransferase 24 IU/L (<50); Aspartate Aminotransferase 29 IU/L (17-59); Cholesterol 135 mg/dL (140-199); Creatine Kinase 128 U/L (55-170); HDL Cholesterol 49 mg/dL (40-60); LDL Cholesterol Calculated 70 mg/dL (<100); Triglycerides 80 mg/dL (35-150)
[2023-12-18 08:27] LABS: LDL Cholesterol Direct 70 mg/dL (<100)
== END ==
LOC: LAB 07:07
PROVIDERS: Family Provider Family Medicine; PCP Family Medicine; Referring Provider Internal Medicine Cardiovascular Disease; Visit Provider Internal Medicine Cardiovascular Disease
DX: E78.5 Hyperlipidemia, unspecified (principal)
CPT/HCPCS: 36415; 80061; 82550; 83721; 84450; 84460

== ENCOUNTER → 2023-12-21 11:55 | Outpatient (CLI) | payer MEDICARE, OTHER, SELFPAY ==
--- NOTE | 2023-12-21 11:58 | DI.CT.S_ITS ---
PROCEDURE: CT CHEST WO CON INDICATIONS: Pulmonary mycobacterial infection TECHNIQUE: Noncontrast 5 mm thick sections acquired from the pulmonary apices to the posterior costophrenic angles. 1 mm lung window, 5 mm thick coronal and sagittal and 7 mm axial MIP reformats were then acquired. For radiation dose reduction, the following was used: automated exposure control, adjustment of mA and/or kV according to patient size. COMPARISON: [facility], CT, CT CHEST WITHOUT CONTRAST, 01/27/2022, 16:39. [facility], CT, CT ABDOMEN PELVIS WO/W CON, 07/04/2023, 11:00. [facility], CR, XR CHEST 2V, 02/27/2023, 16:09. FINDINGS: Image quality: Diagnostic. Lower Neck: No enlarged lymph nodes. Thyroid: No thyroid nodules which require sonographic follow up, per consensus guidelines. Axillae: No enlarged lymph nodes. Chest Wall: Unremarkable. Bones: Moderate dextroscoliosis and spondylitic changes in thoracic spine.. Lungs and Pleura: There are innumerable subpleural nodules bilaterally, right greater than left. Many nodules or present on the last exam dated 01/27/2022. Many nodules in the right lower lobe are decreased in size. There is bronchiectasis involving right upper, middle lobe and lower lobes, as well as lingula and left lower, overall increased since the last exam. No pneumothorax or pleural effusions. Heart: Heart size is normal. No pericardial effusion. Severe coronary artery calcification. Thoracic Vessels: The aorta and pulmonary arteries demonstrate normal size. Mediastinum and Astrid: No enlarged lymph nodes. Esophagus: No wall thickening. Small hiatal hernia. Upper Abdomen: Visualized upper abdomen solid organs and bowel loops appear normal. IMPRESSION: 1. Innumerable subpleural pulmonary nodules bilaterally, right greater than left. Bronchiectasis bilaterally. The CT findings are compatible with mycobacterial infections suggest TB or JAXON. 2. Severe coronary artery calcification. Dictated by: Shaka Calvin M.D. on 12/21/2023 at 15:42 Approved by: Shaka Calvin M.D. on 12/21/2023 at 15:48
== END ==
PROVIDERS: Family Provider Family Medicine; PCP Family Medicine; Referring Provider Internal Medicine Critical Care Medicine; Visit Provider Internal Medicine Critical Care Medicine
DX: A31.0 Pulmonary mycobacterial infection (principal); R91.8 Other nonspecific abnormal finding of lung field; I25.10 Atherosclerotic heart disease of native coronary artery without angina pectoris; K44.9 Diaphragmatic hernia without obstruction or gangrene; M47.814 Spondylosis without myelopathy or radiculopathy, thoracic region; M41.9 Scoliosis, unspecified
CPT/HCPCS: 71250

== ENCOUNTER → 2024-01-08 09:46 | Outpatient (CLI) | payer MEDICARE, OTHER, SELFPAY ==
[2024-01-10 21:07] LABS: Fecal Immunochemical Test Negative (Negative)
== END ==
LOC: LAB 09:47
PROVIDERS: Family Provider Family Medicine; PCP Family Medicine; Referring Provider Family Medicine; Visit Provider Family Medicine
DX: Z12.11 Encounter for screening for malignant neoplasm of colon (principal)
CPT/HCPCS: 82274

== ENCOUNTER → 2024-03-15 11:37 | Outpatient (CLI) | payer MEDICARE, OTHER, SELFPAY | PROVIDERS: Family Provider Family Medicine; PCP Family Medicine; Referring Provider Urology; Visit Provider Urology | DX: Z12.5 Encounter for screening for malignant neoplasm of prostate (principal) | CPT/HCPCS: 36415; G0103 ==

== ENCOUNTER 2024-03-18 06:23 | Day surgery (SDC) | payer MEDICARE, OTHER, SELFPAY ==
[2024-03-13 12:50] VITALS: BMI 23.4
[2024-03-18] VITALS (11 sets, daily range): BP systolic 125–154; BP diastolic 69–85; PULSE 45–68; RESP 11–22; TEMP 35.9–36.6; O2SAT 93–99; BMI 23.7
--- NOTE | 2024-03-18 | PATH_ITS ---
[facility] Accession Number: [id number] No. of containers..01 Tissue . 01 Material submitted: . prostate - PROSTATE CHIPS . 01 Diagnosis: A. PROSTATE, CHIPS: Benign prostatic stroma with benign epithelium. [facility] 03/24/2024 1135 Local . 01 Electronically signed: . Jessi Gagnon MD, Pathologist NPI- [id number] . 01 Gross description: . Received in formalin with two patient identifiers and prostate chips, are multiple murray soft tissue fragments admixed with hemorrhagic material weighing 6 grams and aggregating to 4.5 x 3.5 x 1.4 cm. No lesional tissue identified, and the specimen is submitted entirely in A1-A4. ([id number]) /MRV 03/19/20242010 Local . 01 Pathologist provided ICD-10: N42.9 . 01 CPT . 354338 Specimen Comment: A courtesy copy of this report has been sent to [phone] Performed at: [address] [facility] [address], [place], [place] [id number] MD Eligio Chandler MD Phone: [phone]
[2024-03-18] MEDS: LACTATED RINGERS 1,000 ML 42 ML IV (07:16)
[2024-03-18] MEDS: ACETAMINOPHEN 325 MG TABLET 975 MG PO (07:17)
--- NOTE | 2024-03-18 07:40 | PM.PREOP ---
Pre-operative Note COVID-19 COVID-19 status: Not tested Interval Note History & Physical reviewed/Exam performed by Physician: Yes Changes to H&P: No
--- NOTE | 2024-03-18 07:53 | SUR.PREOP ---
Patient noted to have fine crackles to right lung base, which he states is his baseline due to his existing lung disease. Denies any SOB at this time. Patient offered an albuterol treatment by anesthesiologist but patient declines, stating that he would prefer a nebulizer treatment with 0.7% saline which we do not offer. Pre-op education given regarding arshad catheter care, irrigation PRN for clots, and concerns that should be relayed to urologist.
[2024-03-18] MEDS: CEFAZOLIN 2 GM/100 ML PREMIX 100 ML IV (08:16)
--- NOTE | 2024-03-18 08:32 | SUR.OPER ---
Lithotomy on padded OR bed, head on pillow, arms secured on padded arm boards at <90 degrees abduction. Legs secured in padded yellow fins stirrups.
--- NOTE | 2024-03-18 09:59 | PM.OP.1 ---
Procedure & Clinicians Procedure: 1. Aquablation water jet resection of prostate 2. Transrectal ultrasound of prostate 3. Transurethral resection of prostate with fulguration Same procedure as scheduled: Yes Indications: This 73-year-old gentleman presented with complaints of much worsening benign prostatic hyperplasia with lower urinary tract symptoms on maximal medical therapy. He went on to workup which showed an international prostate symptom score of 21 a prostate volume of 62.7 mL Q max of 13.9 with straining and an average flow of 6.1. At cystoscopy he was noted to have a markedly obstructive prostate with median lobe severe trabeculation cellules. His PSA is 0.800. He desires Aquablation for treatment of his bladder outlet obstructive symptoms and presents this time for that procedure being an excellent candidate. Surgeon: Khai Perez Click Yes if Unassisted: Yes Anesthesia Type: General Operative Notes Findings: Findings: At cystoscopy urethral meatus was normal urethra is normal along its length with normal mucosa. The sphincter as well coapted the prostate showed trilobar obstructive character. With a moderate-sized median lobe bulging into the bladder. Ureteral orifices were proximally normal position with clear efflux and at the end of the procedure they were unaffected with clear efflux. There is severe trabeculation cellules. No other abnormality was noted within the bladder. At the end of the procedure the prostatic fossa was widely patent and a 24 Mauritian 30 cc three-way Benton catheter silicone was left in place with 30 cc in the balloon. The prostatic chips resected at the bladder neck were forwarded to pathology for pathologic examination. There were no complications. Total resection time for 2 passes was approximately 6 minutes. The time from [facility] in the catheter in was 70 minutes. Closure Type: not applicable Specimen(s): other (Prostate chips) Applied: catheter (24 Mauritian 30 cc three-way silicone catheter with 30 cc in the balloon) Estimated Blood Loss (mL): 100 Blood products transfused: none Procedure in detail: Procedure in detail: After informed consent was obtained, the patient was identified brought to the operating room where he is placed in a supine position on the table and anesthesia was induced to maintain. Ensuring an adequate level of anesthesia the patient was transitioned to the lithotomy position where he was prepped. After prepping, ensuring an adequate level of anesthesia, time-out and administration of antibiotics the ultrasound probe was inserted in the rectum in the following fashion. The ultrasound probe was attached to the trust stepper which was mounted to the articulating arm which was attached to the bed. 60 cc of ultrasound gel was instilled within the rectum followed by the ultrasound probe. The ultrasound probe was then aligned in the longitudinal and transverse planes. Confirmation of sensory and alignment was done. With the ultrasound probe in place the patient was then draped in a sterile fashion. Once this was done the 24 Mauritian aqua beam handpiece was inserted through the urethra prostate and into the bladder under direct vision as it was inserted the level of the external sphincter, verumontanum and bladder neck were noted on ultrasound. Cystoscopy was performed with findings as noted above. The alignment of the aqua beam handpiece ultrasound probe was noted to be colinear the handpiece was position via ultrasound guidance and attached to the handpiece articulating arm. It was checked for magnetic security and this was found to be good. Once this was done confirmation was once again done that the aqua beam handpiece and truss probe were parallel and colinear. The nodule was ensured to be at the 12 o'clock position and that it was centered and anterior to the bladder neck and median lobe. Again compression was applied to the ultrasound. The aqua beam nozzle were confirmed to be at the 3 and 9 o'clock position. The so called horizontal alignment of the water jet nodules. The treatment zones were then established 1st noting the position of the water jet at the bladder neck and then the length of the treatment. With the cystoscope having been rolled back to the level of the verumontanum proximal to the external sphincter. Again this was the distal extent of resection and the water jet was marked and then the position of the cystoscope. With this done in the transverse plane the limits of resection were defined and then in the longitudinal plane the way points at the start of resection bladder neck mid prostate and end of resection. And the transverse so the depth of resection and radial angles were defined. In the sagittal view as noted above again in this the position of the nodule was registered with the software. With the treatment contours in place and testing with the 20% jet was confident that we had the outlined done. At this point the Aquablation treatment was started following the resection contour and confirmed in real time by ultrasound guidance. With the 1st pass completed a 2nd pass was performed making adjustments to be at exactly the right level at the bladder neck start of treatment mid prostate and the veru protection zone. With the 2nd pass completed the irrigation was once again turned on and the cystoscope advanced to the tip of the hand piece and it was backed out under direct vision. At this point a resectoscope was inserted via direct visualization and ultrasound confirmation into the bladder. At this point an Ellik evacuator employed to evacuate clot and irrigate the bladder. There was a flap of median lobe remaining. This was at the posterior bladder neck. The ureteral orifices were identified at this point and found to be unaffected with clear efflux. Then starting at the 3 o'clock position and resecting around to the 9 o'clock position of the bladder neck was resected and points of bleeding controlled with the electrocautery. Anteriorly due to the vibration of the scope there was some oozing which was controlled with the electrocautery. At the apex there was on each side a small amount of residual tissue which was resected. With this the prostatic fossa was widely patent under direct vision and ultrasound visualization. Again the Ellik evacuator was employed to evacuate any further clot and the remaining prostate chips. The bladder neck was once again reinspected and points of bleeding controlled with the electrocautery anteriorly as well as in the area of resection. It appeared to be adequate. The level of the verumontanum was also visualized anteriorly there was a small amount of oozing which was controlled with the electrocautery. With the chips evacuated and hemostasis good the effluent being light pink the scope was backed out and the patient had a vigorous stream. A 24 Mauritian 30 cc three-way silicone Benton catheter was then placed with the aid of a catheter guide and ultrasound visualization. The balloon was filled with 30 cc of water and positioned of the bladder neck. CBI was then connected the bladder irrigated and the effluent remained at most light pink. The catheter was placed to gentle traction the patient was awakened having tolerated the procedure well after the ultrasound probe was removed. Patient at this point awakened having tolerated the procedure well no complications was transferred to the postanesthesia care unit for recovery. Complications: none Post-operative Condition: stable Disposition: PACU Plan for aftercare: Patient will be recovered in the postanesthesia care unit traction will be lessened and determination will be made with the patient will be discharged immediately or held overnight.
[2024-03-18] MEDS: PHENAZOPYRIDINE 100 MG TABLET 200 MG PO (10:33)
--- NOTE | 2024-03-18 11:49 | SUR.PHASEII ---
Dr Perez here to see patient. Traction slightly released on catheter. irrigation slowed. no clots noted. cheese and crackers given.
--- NOTE | 2024-03-18 12:26 | SUR.PHASEII ---
Surgeon here to see patient. irrigation clamped per surgeon request. slightly Grade 3 with no clots. Significant other called to return to hospital to go over DC instructions.
== END 2024-03-18 14:00 | disposition home or self-care (01) ==
PROVIDERS: Family Provider Family Medicine; PCP Family Medicine; Referring Provider Urology; Visit Provider Urology
PROC: 0VT08ZZ Resection of Prostate, Via Natural or Artificial Opening Endoscopic (ICD-10-PCS; CPT 0421T; principal; 2024-03-18 07:45)
DX: N40.1 Benign prostatic hyperplasia with lower urinary tract symptoms (principal); N13.8 Other obstructive and reflux uropathy
CPT/HCPCS: 0421T; 82962; C2596; J0330; J0690; J1100; J2405; J2704; J3010

== ENCOUNTER → 2024-03-20 14:39 | Outpatient (CLI) | payer MEDICARE, OTHER, SELFPAY | PROVIDERS: Family Provider Family Medicine; PCP Family Medicine; Visit Provider Urology | DX: N39.0 Urinary tract infection, site not specified (principal); R39.9 Unspecified symptoms and signs involving the genitourinary system | CPT/HCPCS: 51798; 81002; 87086 ==

== ENCOUNTER 2024-03-21 04:35 | Emergency (ER) | payer MEDICARE, OTHER, SELFPAY ==
[2024-03-21 04:58] VITALS: BP 193/93; PULSE 65; RESP 20; TEMP 36.8; O2SAT 98; BMI 23.7
[2024-03-21] MEDS: LIDOCAINE 2% (GLYDO) 6 ML GEL TOP (05:30)
--- NOTE | 2024-03-21 05:40 | ED.MALEGU ---
HPI - Male Genitourinary General Chief complaint: Urogenital-Male Stated complaint: painful urination no bowel movement Time Seen by Provider: 03/21/24 05:11 Source: patient Mode of arrival: Ambulatory Limitations: no limitations History of Present Illness HPI Narrative: 73-year-old male had Aquablation surgery on Sunday the , patient had his Benton catheter removed yesterday on the . He states he is able to urinate initially but noticed sort of decreasing amount over time and then last night had increasing discomfort and eventually was not able to urinate. He states he became quite uncomfortable initially pain was sort of in the penis testicles and then into lower abdomen. He states he has not really been constipated, he did take MiraLax had diarrhea like stool on Sunday took a 3rd cap full last night and then took an additional CT facial and had a formed bowel movement overnight which he states did not feel constipated or hard. He denies fevers or chills. He states he feels much better after catheters in place and bladder is drained. Denies any pain at this point. He did take a Pyridium that was prescribed by Dr. Perez. Related Data Home Medications Medication Instructions Recorded Confirmed ascorbate calcium (vitamin C) 500 500 mg PO BID 07/07/20 03/20/24 mg tablet dutasteride 0.5 mg capsule 0.5 mg PO QAM 07/10/21 03/20/24 tamsulosin 0.4 mg capsule (Flomax) 0.4 mg PO QAM 07/10/21 03/20/24 nitroglycerin 0.4 mg sublingual 0.4 mg sublingual Q5M PRN Chest 07/25/21 03/20/24 tablet Pain potassium chloride 10 mEq 40 meq PO QAM 10/21/21 03/20/24 tablet,extended release CBD PO 01/13/22 03/20/24 carvedilol 3.125 mg tablet 3.125 mg PO BID 01/13/22 03/20/24 losartan 50 mg tablet 25 mg PO BID 01/13/22 03/20/24 multivitamin 1 tab PO DAILY 01/13/22 03/20/24 rosuvastatin 10 mg tablet 10 mg PO DAILY 01/13/22 03/20/24 clopidogrel 75 mg PO DAILY 07/17/23 03/20/24 lactobacillus combination no.9 4 4,000 mmu cells PO DAILY 03/20/24 03/20/24 billion cell capsule (Adult 50 Plus Probiotic) Previous Rx's Medication Instructions Recorded amlodipine 10 mg tablet 10 mg PO QAM #90 tabs 08/08/21 indomethacin 50 mg capsule See Rx Instructions .Route 01/28/24 .COMPLEX #30 caps phenazopyridine 200 mg tablet 200 mg PO QPC PRN Bladder 03/18/24 (Pyridium) irritation 6 doses #7 tabs Allergies Allergy/AdvReac Type Severity Reaction Status Date / Time latex Allergy Rash Verified 03/20/24 14:37 Review of Systems Review of Systems ROS Unobtainable: All systems reviewed & are unremarkable except as noted in HPI and below Patient History Medical History COPD (chronic obstructive pulmonary disease) Nontuberculous mycobacterial disease of lung Benign prostatic hyperplasia with lower urinary tract symptoms Acute pain of right knee Sleep apnea Diastolic heart failure Right inguinal hernia Secondhand smoke exposure Asymptomatic microscopic hematuria Right groin pain Vertigo Bladder pain Poor short term memory Thymoma Cyst of right kidney Cyst of left kidney Hydronephrosis Muscular deconditioning Change in consistency of stool Bronchiectasis Exposure to hepatitis A BROWN (dyspnea on exertion) Mycobacterial disease, pulmonary Acute pain of left shoulder Anxiety about health Resistant hypertension GERD (gastroesophageal reflux disease) Medication side effects present Stress due to illness of family member Somatic dysfunction of lower extremity Segmental and somatic dysfunction of rib cage Other stressful life events affecting family and household Lumbar region somatic dysfunction Segmental and somatic dysfunction of abdomen and other regions Sacral region somatic dysfunction Pelvic somatic dysfunction Chronic thoracic back pain Scoliosis of thoracic spine Sleep disorder Cerumen impaction Fecal incontinence BRBPR (bright red blood per rectum) Cranial somatic dysfunction Thoracic region somatic dysfunction Cervical somatic dysfunction Stiff neck Onychomycosis Segmental and somatic dysfunction of upper extremity Actinic keratoses Aortic aneurysm, abdominal Renal cyst Gallbladder polyp Hiatal hernia Chronic right shoulder pain Chronic pain of left ankle Adverse reaction to antibiotic Frequent loose stools Abdominal bloating Constipation Skin rash Hypothyroidism Shoulder pain Scoliosis Gout Elevated PSA Benign prostatic hyperplasia Pancreatitis Gluten enteropathy Low testosterone Cardiac arrhythmia Aortic regurgitation (1994) Surgical History Hx of right inguinal hernia repair (07/17/23) Hx of heart artery stent (07/11/21) Hx of thymectomy (02/07/23) Anesthesia Ankle fracture (1978) History of pancreatic surgery (1994) History of eyelid surgery (2016) Family History Brother Age: 67 No problems noted. Father Heart disease Mental health problem Smoker Alcoholic Brother No problems noted. Grandfather Cancer Grandmother No problems noted. Mother No problems noted. Grandfather Fall from roof Grandmother Cancer Sister Overweight Sister No problems noted. Social History marital status: number of children: 0 household members: significant other and none lives independently: Yes caregiver/support person: No housing: house Smoking Status: Never smoker second hand exposure: No alcohol intake: former substance use type: does not use caffeine: Yes Type(s) of exercise: weight lifting and other frequency: daily duration: > 90 minutes/day Smoking Status: Never smoker alcohol intake frequency: 0-2 drinks per day Substance Use Type: does not use Exam Narrative Exam Narrative: GENERAL: Alert and oriented x three, male in mild distress HEENT: Head normocephalic, atraumatic, EOMI, pupils reactive, face symmetric, moist mucous membranes NECK: Supple, full range of motion CARDIOVASCULAR: Regular rate and rhythm without murmurs, rubs or gallops. RESPIRATORY: Breath sounds equal bilaterally, no wheezes rales or rhonchi. ABDOMEN: Soft, nontender. Normoactive bowel sounds all 4 quadrants. No guarding or rebound, rigidity, no mass : No CVA tenderness, Benton catheter in place with yellow urine draining. No clots or hematuria appreciated. EXTREMITIES: Normal range of motion, no clubbing or edema. Neurovascularly intact NEUROLOGICAL: Cranial nerves II through XII grossly intact. Moving all extremities SKIN: Warm, dry, no petechiae, no rashes or lesions. Initial Vital Signs Initial Vital Signs: Vital Signs Temperature 98.2 F 03/21/24 04:58 Pulse Rate 65 03/21/24 04:58 Respiratory Rate 20 03/21/24 04:58 Blood Pressure 193/93 H 03/21/24 04:58 Pulse Oximetry 98 03/21/24 04:58 Oxygen Delivery Method Room Air 03/21/24 04:58 Course Orders Ordered: ED Orders 03/21/24 06:28 UA Complete [Urinalysis and Microscopic] Stat Discontinued Medications Lidocaine HCl (Lidocaine 2% (Glydo) 6 Ml Gel) 6 ml TOP NOW ONE Stop: 03/21/24 05:18 Last Admin: 03/21/24 05:30 Dose: 6 ml Documented By: Vital Signs Vital signs: Vital Signs - 8 hr 03/21/24 04:58 Temperature 98.2 F Pulse Rate 65 Respiratory Rate 20 Blood Pressure 193/93 H Pulse Oximetry 98 Oxygen Delivery Method Room Air MDM - Male Genitourinary Lab Data Labs: Lab Results 03/21/24 Range/Units 06:28 Urine Color Yellow Urine Appearance Sl cloudy Urine pH 7.0 (4.5-8.0) Ur Specific Dodson <=1.005 (1.000-1.035) Urine Protein Trace H (Negative) Urine Glucose (UA) Negative (Negative) g/dL Urine Ketones Negative (NEGATIVE) Urine Occult Blood 3+ H (Negative) Urine Nitrate Positive H (Negative) Urine Bilirubin Negative (NEGATIVE) Urine Urobilinogen 1.0 (0.2) E.U./dL Ur Leukocyte Esterase Negative (NEGATIVE) [facility] Narrative Medical decision making narrative: Patient has a UA from yesterday and urine culture already pending from 03/20/2024. Patient feels significantly improved, no obvious hematuria requiring irrigation today. Patient has been taking stool softeners and has been having initially diarrhea like stool and then soft formed stool. Plan for patient to follow up with Dr. Perez, he is to call to set up follow up in the next week. Discharge Plan Departure Patient Disposition: Home Clinical Impression: Acute urinary retention Instructions: How to Care for Your Benton Catheter -- Male Activity Restrictions/Additional Instructions: Call today to set up follow up with Dr. Perez. Let them know that you had retention overnight and had a catheter placed. You have a urine culture currently pending from yesterday, this takes about 24-48 hours to result. Please return for fevers, if you are catheter is not draining, new abdominal back or flank pain, penile pain or testicular pain or other new or concerning changes. Prescriptions: No Action nitroglycerin 0.4 mg tablet, sublingual 0.4 mg sublingual Q5M PRN (Reason: Chest Pain) Rx Instructions: do not exceed 3 doses per episode amlodipine 10 mg tablet 10 mg PO QAM Qty: 90 1RF ascorbate calcium (vitamin C) 500 mg tablet 500 mg PO BID indomethacin 50 mg capsule See Rx Instructions .ROUTE .COMPLEX Qty: 30 5RF Dose Instruction: TAKE ONE CAPSULE BY MOUTH THREE TIMES DAILY Rx Instructions: TAKE ONE CAPSULE BY MOUTH THREE TIMES DAILY potassium chloride 10 mEq tablet extended release 40 meq PO QAM rosuvastatin 10 mg tablet 10 mg PO DAILY carvedilol 3.125 mg tablet 3.125 mg PO BID multivitamin Tablet 1 tab PO DAILY CBD PO clopidogrel 75 mg PO DAILY phenazopyridine [Pyridium] 200 mg tablet 200 mg PO QPC PRN (Reason: Bladder irritation) Qty: 7 0RF dutasteride 0.5 mg capsule 0.5 mg PO QAM tamsulosin [Flomax] 0.4 mg capsule 0.4 mg PO QAM losartan 50 mg tablet 25 mg PO BID Adult 50 Plus Probiotic 4 billion cell capsule 4,000 mmu cells PO DAILY Rx Instructions: administer with a meal Referrals: Khai Perez MD [Physician] - Emanuel Amador DO [Primary Care Provider] - Stand Alone Forms: Patient Portal/API
--- NOTE | 2024-03-21 05:40 | PC.NURSE ---
Administered Placed 16 fr arshad catheter. Red tinged urine out initially, then turned to an orange color.
[2024-03-21 06:30] LABS: Appearance Urine UA SL CLOUDY; Bilirubin Urine UA NEGATIVE (NEGATIVE); Color Urine UA YELLOW; Glucose Urine UA NEGATIVE (Negative); Ketones Urine UA NEGATIVE (NEGATIVE); Leukocyte Esterase Urine UA NEGATIVE (NEGATIVE); Nitrite Urine UA POSITIVE (Negative); Occult Blood Urine UA 3+ (Negative); Protein Urine UA TRACE (Negative); Specific Gravity Urine UA <=1.005 (1.000-1.035)
[2024-03-21 06:48] LABS: RBC Urine 30-100/HPF (0-5/HPF); Urine Volume 10mL (spun)
[2024-03-21 06:49] LABS: Bacteria Urine None Seen; Culture Indicated Urine Specimen Cultured; Squamous Epithelial Cell Urine None Seen (0-5/HPF); WBC Urine 1-5/HPF (0-5/HPF)
== END 2024-03-21 06:34 | disposition home or self-care (01) ==
PROVIDERS: Emergency Provider Emergency Medicine; Family Provider Family Medicine; PCP Family Medicine
DX: R33.9 Retention of urine, unspecified (principal); R39.89 Other symptoms and signs involving the genitourinary system
CPT/HCPCS: 51702; 51798; 81001; 87086; 99283

== ENCOUNTER → 2024-03-28 16:04 | Outpatient (CLI) | payer MEDICARE, OTHER, SELFPAY | PROVIDERS: Family Provider Family Medicine; PCP Family Medicine; Visit Provider Urology | DX: N39.0 Urinary tract infection, site not specified (principal); N40.1 Benign prostatic hyperplasia with lower urinary tract symptoms; R35.0 Frequency of micturition; R33.9 Retention of urine, unspecified | CPT/HCPCS: 51798; 81002; 87086 ==

== ENCOUNTER → 2024-03-31 15:37 | Outpatient (CLI) | payer MEDICARE, OTHER, SELFPAY | PROVIDERS: Family Provider Family Medicine; PCP Family Medicine; Visit Provider Urology | DX: R33.8 Other retention of urine (principal); N39.0 Urinary tract infection, site not specified | CPT/HCPCS: 87086 ==

== ENCOUNTER → 2024-07-19 07:39 | Outpatient (CLI) | payer MEDICARE, OTHER, SELFPAY ==
[2024-07-19 09:47] LABS: Cholesterol 155 mg/dL (140-199); HDL Cholesterol 45 mg/dL (40-60); LDL Cholesterol Calculated 93 mg/dL (<100); Triglycerides 83 mg/dL (35-150)
[2024-07-19 10:11] LABS: LDL Cholesterol Direct 96 mg/dL (<100)
[2024-07-20 17:56] LABS: Alanine Aminotransferase 21 IU/L (<50); Aspartate Aminotransferase 29 IU/L (17-59)
== END ==
PROVIDERS: Family Provider Family Medicine; PCP Family Medicine; Referring Provider Internal Medicine Cardiovascular Disease; Visit Provider Internal Medicine Cardiovascular Disease
DX: E78.2 Mixed hyperlipidemia (principal)
CPT/HCPCS: 36415; 80061; 82550; 82552; 83721; 84450; 84460

== ENCOUNTER 2024-08-13 10:15 | Outpatient (RCR) | payer MEDICARE, OTHER, SELFPAY | END 2024-08-13 12:15 | LOC: PUL 10:15 | PROVIDERS: Family Provider Family Medicine; PCP Family Medicine; Referring Provider Internal Medicine | DX: J47.9 Bronchiectasis, uncomplicated (principal) | CPT/HCPCS: G0237; G0238 ==

== ENCOUNTER → 2024-12-04 15:23 | Outpatient (CLI) | payer MEDICARE, OTHER, SELFPAY | PROVIDERS: Family Provider Family Medicine; PCP Family Medicine; Visit Provider Family Medicine | DX: J02.9 Acute pharyngitis, unspecified (principal) | CPT/HCPCS: 87070 ==

== ENCOUNTER → 2024-12-26 07:17 | Outpatient (CLI) | payer MEDICARE, OTHER, SELFPAY ==
[2024-12-26 09:16] LABS: Add Manual Diff / Slide Review NO; Basophils Absolute Auto 0 /uL (0-100); Basophils Percent Auto 0.5 % (0-2); Eosinophils Absolute Auto 200 /uL (0-450); Eosinophils Percent Auto 3.4 % (2-4); Hematocrit 39.3 % (41-53); Hemoglobin 13.3 g/dL (13.5-17.5); Lymphocytes Absolute Auto 700 /uL (1100-4500); Lymphocytes Percent Auto 13.7 % (25-40); Mean Corpuscular HGB Conc 33.9 % (30-36); Mean Corpuscular Hemoglobin 28.7 PG (26-34); Mean Corpuscular Volume 84.7 fL (80-100); Monocytes Absolute Auto 500 /uL (0-900); Monocytes Percent Auto 10.8 % (3-14); Neutrophils Absolute Auto 3500 /uL (1500-7000); Neutrophils Percent Auto 71.6 % (50-75); Platelet Count 186 X10^3/uL (150-400); Red Blood Cell Count 4.64 X10^6/uL (4.5-5.9); Red Cell Distribution Width 14.5 % (11.6-14.8); White Blood Cell Count 4.9 X10^3/uL (4.5-11.0)
[2024-12-26 12:02] LABS: Alanine Aminotransferase 22 IU/L (<50); Creatine Kinase 84 U/L (55-170)
[2024-12-26 12:13] LABS: LDL Cholesterol Direct 98 mg/dL (<100)
[2024-12-26 12:17] LABS: Prostate Specific Antigen 3.34 ng/mL (0.10-4.00)
[2024-12-26 14:16] LABS: Alanine Aminotransferase 22 IU/L (<50); Albumin 3.8 g/dL (3.5-5.0); Albumin Globulin Ratio 1.7 (1.0-2.8); Alkaline Phosphatase 75 U/L (38-126); Aspartate Aminotransferase 33 IU/L (17-59); BUN Creatinine Ratio 21.9 (6-22); Bilirubin Total 0.9 mg/dL (0.2-1.3); Blood Urea Nitrogen 21 mg/dL (9-20); Calcium 8.9 mg/dL (8.4-10.2); Carbon Dioxide 24 mmol/L (22-32); Chloride 106 mmol/L (98-107); Estimated Glomerular Filt Rate > 60 mL/min (>60); Globulin 2.3 g/dL (1.7-4.1); Glucose 96 mg/dL (80-110); HEMOLYSIS < 15 (0-50); Potassium 3.3 mmol/L (3.4-5.1); Sodium 140 mmol/L (137-145); Total Protein 6.1 g/dL (6.3-8.2)
== END ==
PROVIDERS: Urology; Family Provider Family Medicine; PCP Family Medicine; Referring Provider Internal Medicine Cardiovascular Disease; Visit Provider Internal Medicine Cardiovascular Disease
DX: R97.20 Elevated prostate specific antigen [PSA] (principal); I25.10 Atherosclerotic heart disease of native coronary artery without angina pectoris; I50.32 Chronic diastolic (congestive) heart failure; E78.2 Mixed hyperlipidemia; I35.1 Nonrheumatic aortic (valve) insufficiency; E87.6 Hypokalemia; E03.9 Hypothyroidism, unspecified; I11.0 Hypertensive heart disease with heart failure
CPT/HCPCS: 36415; 80053; 82550; 83721; 84153; 84443; 84460; 85025

== ENCOUNTER → 2024-12-27 18:55 | Outpatient (CLI) | payer MEDICARE, OTHER, SELFPAY ==
--- NOTE | 2024-12-27 18:57 | DI.RAD.S_ITS ---
PROCEDURE: XR CHEST 2V INDICATIONS: Shortness of breath TECHNIQUE: 2 views of the chest were acquired. COMPARISON: [facility], CR, XR CHEST 2V, 02/27/2023, 16:09. FINDINGS: Surgical changes and devices: None. Lungs and pleura: Chronic interstitial changes, not significantly changed since prior radiograph 02/27/2023. No new acute airspace opacity. No pleural effusions or pneumothorax. Mediastinum: Mediastinal contours are normal. Heart size is normal. Coronary artery stents. Bones and chest wall: No suspicious bony abnormalities. Soft tissues appear unremarkable. IMPRESSION: Chronic interstitial changes. No new acute focal dense airspace consolidation. Approved by: Siobhan Vicente M.D.,Ph.D. on 12/27/2024 at 19:34
== END ==
LOC: RAD 18:56
PROVIDERS: Family Provider Family Medicine; PCP Family Medicine; Referring Provider Registered Nurse; Visit Provider Registered Nurse
DX: R06.02 Shortness of breath (principal); Z95.5 Presence of coronary angioplasty implant and graft
CPT/HCPCS: 71046

== ENCOUNTER 2025-01-14 09:10 | Day surgery (SDC) | payer MEDICARE, OTHER, SELFPAY ==
[2025-01-14] MEDS: LACTATED RINGERS 1,000 ML 42 ML IV (10:01)
[2025-01-14 10:16] VITALS: BP 167/80; PULSE 48; RESP 18; TEMP 36.6; O2SAT 98
--- NOTE | 2025-01-14 10:25 | P.HP_ITS ---
History of Present Illness History of Present Illness Date Patient Seen: 01/14/25 Chief complaint: Screening Colonoscopy Narrative: Follow-up screening colonoscopy with history of polyps [facility] Medical History Sore throat Insomnia Hx of colonic polyps Incomplete emptying of bladder History of urinary retention Episodic weakness Strain of adductor muscle of thigh COPD (chronic obstructive pulmonary disease) Nontuberculous mycobacterial disease of lung Benign prostatic hyperplasia with lower urinary tract symptoms Acute pain of right knee Sleep apnea Diastolic heart failure Right inguinal hernia Secondhand smoke exposure Asymptomatic microscopic hematuria Right groin pain Vertigo Bladder pain Poor short term memory Thymoma Cyst of right kidney Cyst of left kidney Hydronephrosis Muscular deconditioning Change in consistency of stool Bronchiectasis Exposure to hepatitis A BROWN (dyspnea on exertion) Mycobacterial disease, pulmonary Acute pain of left shoulder Anxiety about health Resistant hypertension GERD (gastroesophageal reflux disease) Medication side effects present Stress due to illness of family member Somatic dysfunction of lower extremity Segmental and somatic dysfunction of rib cage Other stressful life events affecting family and household Lumbar region somatic dysfunction Segmental and somatic dysfunction of abdomen and other regions Sacral region somatic dysfunction Pelvic somatic dysfunction Chronic thoracic back pain Scoliosis of thoracic spine Sleep disorder Cerumen impaction Fecal incontinence BRBPR (bright red blood per rectum) Cranial somatic dysfunction Thoracic region somatic dysfunction Cervical somatic dysfunction Stiff neck Onychomycosis Segmental and somatic dysfunction of upper extremity Actinic keratoses Aortic aneurysm, abdominal Renal cyst Gallbladder polyp Hiatal hernia Chronic right shoulder pain Chronic pain of left ankle Adverse reaction to antibiotic Frequent loose stools Abdominal bloating Constipation Skin rash Hypothyroidism Shoulder pain Scoliosis Gout Elevated PSA Benign prostatic hyperplasia Pancreatitis Gluten enteropathy Low testosterone Cardiac arrhythmia Aortic regurgitation (1994) Surgical History Hx of right inguinal hernia repair (07/17/23) Hx of heart artery stent (07/11/21) Hx of thymectomy (02/07/23) Anesthesia Ankle fracture (1978) History of pancreatic surgery (1994) History of eyelid surgery (2016) Family History Brother Age: 68 No problems noted. Father Heart disease Mental health problem Smoker Alcoholic Brother No problems noted. Grandfather Cancer Grandmother No problems noted. Mother No problems noted. Grandfather Fall from roof Grandmother Cancer Sister Overweight Sister No problems noted. Social History marital status: number of children: 0 household members: significant other and none lives independently: Yes caregiver/support person: No housing: house Smoking Status: Never smoker second hand exposure: No alcohol intake: former substance use type: does not use caffeine: Yes Type(s) of exercise: weight lifting and other frequency: daily duration: > 90 minutes/day Meds Home Medications and Allergies Home Medications Medication Instructions Recorded Confirmed Type nitroglycerin 0.4 mg sublingual 0.4 mg sublingual Q5M PRN Chest 07/25/21 01/14/25 History tablet Pain amlodipine 10 mg tablet 10 mg PO QAM #90 tabs 08/08/21 01/14/25 Rx potassium chloride 10 mEq 40 meq PO QAM 10/21/21 01/14/25 History tablet,extended release carvedilol 3.125 mg tablet 3.125 mg PO BID 01/13/22 01/14/25 History losartan 50 mg tablet 25 mg PO BID 01/13/22 01/14/25 History rosuvastatin 10 mg tablet 10 mg PO DAILY 01/13/22 01/14/25 History clopidogrel 75 mg PO DAILY 07/17/23 01/14/25 History indomethacin 50 mg capsule See Rx Instructions .Route 01/28/24 01/14/25 Rx .COMPLEX #30 caps zolpidem 10 mg tablet 10 mg PO BEDTIME PRN insomnia #30 09/18/24 01/14/25 Rx tabs Allergies Allergy/AdvReac Type Severity Reaction Status Date / Time latex Allergy Rash Verified 01/07/25 15:03 Exam Vital Signs (past 8 hours): - 01/14/25 10:16 Temperature 97.9 F Pulse Rate 48 L Respiratory Rate 18 Blood Pressure 167/80 H Pulse Oximetry 98 Oxygen Delivery Method Room Air Oxygen Delivery Method Room Air Narrative Exam Narrative: Oropharynx free of lesions Chest clear to auscultation percussion Cardiac exam reveals no S3 or murmur Assessment & Plan Assessment & Plan narrative: Follow-up screening colonoscopy with history of polyps. Risks, benefits, alternatives have been explained. Time-Based Coding :: [TOTAL MINUTES] spent with patient and on the chart (including review of chart, obtaining history, exam, reviewing outside data, placing orders, documenting exam and treatment plan, and counseling patient) on [DATE]. PROFEE Medical Transcription Radiology Document charge(s): No
--- NOTE | 2025-01-14 10:26 | PM.OP.COLON ---
Operative Date/Time/Diagnoses Date of procedure: 01/14/25 Pre-op diagnosis: See indication and findings Procedure & Clinicians Study performed: Colonoscopy Same procedure as scheduled: Yes Indications: History of polyps and follow-up screening Surgeon: Lizz Saucedo Procedure Notes Procedure in detail: After informed consent was obtained the patient was placed in left lateral decubitus position. The video colonoscope was introduced in the rectum slowly passed the cecum. Preparation was good. On slow withdrawal mucosa was carefully examined. The scope was removed. The patient tolerated procedure well. Blood loss none Complications none Sedation mac Findings 1. Normal colonoscopy to cecum. Site of colon resection not immediately obvious. This should be patient's last colonoscopy
[2025-01-14 11:21] VITALS: BP 121/64; PULSE 52; RESP 16; TEMP 36.1; O2SAT 97
[2025-01-14 11:25] VITALS: BP 121/64; PULSE 52; RESP 20; O2SAT 97
[2025-01-14 11:31] VITALS: BP 117/72; PULSE 50; RESP 14; O2SAT 96
== END 2025-01-14 11:51 | disposition home or self-care (01) ==
PROVIDERS: Family Provider Family Medicine; PCP Family Medicine; Referring Provider Internal Medicine Gastroenterology; Visit Provider Internal Medicine Gastroenterology
PROC: 0DJD8ZZ Inspection of Lower Intestinal Tract, Via Natural or Artificial Opening Endoscopic (ICD-10-PCS; CPT 45378; principal; 2025-01-14 10:30)
DX: Z12.11 Encounter for screening for malignant neoplasm of colon (principal); Z86.0100 Personal history of colon polyps, unspecified
CPT/HCPCS: G0105; J2704

== ENCOUNTER 2025-01-21 12:39 | Day surgery (SDC) | payer MEDICARE, OTHER, SELFPAY ==
[2025-01-16 08:07] VITALS: BMI 21.4
--- NOTE | 2025-01-21 12:50 | P.HP_ITS ---
History of Present Illness History of Present Illness Chief complaint: Bronchoscopy w/lavage Narrative: Procedure: Bronchoscopy with bronchial alveolar lavage Preprocedural assessment: The current H and P was reviewed. Patient was reexamined. Re-evaluation of the patient confirms the necessity for the sched uled procedure. No change has occurred in the patient's condition since H& P was completed less than 30 days ago. Airway assessment: Mallampati I ASA classification: 2 PLAN FOR SEDATION: PER ANESTHESIA. SEDATION TYPE: PER ANESTHESIA Consent: I have discussed with the patient the indication, alternatives and possible risks or complications of the planned procedure and the anesthesia methods. The patient communicates an understanding and agrees to proceed. Patient re-evaluated immediately prior to sedation and ready for sedation and procedure. ----- From notation of 01/07/2025: Id and chief complaint: Mr. Hernandez is a 74-year-old man presenting for evaluation of cough, shortness of breath and bronchiectasis with history of and NTM disease History of present illness: Segun Hernandez is a 74 year old never smoker with bronchiectasis, tree-in-bud opacities/chronic bronchiolitis, history of MAC and M. abscessus presenting in follow-up. Plan: --bronchoscopy with lavage, sent for AFB SH [facility] Medical History (Updated 01/16/25 @ 08:40 by Kiki Catherine RN) Myocardial infarction Mcfarland's esophagus Sore throat Insomnia Hx of colonic polyps Incomplete emptying of bladder History of urinary retention Episodic weakness Strain of adductor muscle of thigh COPD (chronic obstructive pulmonary disease) Nontuberculous mycobacterial disease of lung Benign prostatic hyperplasia with lower urinary tract symptoms Acute pain of right knee Sleep apnea Diastolic heart failure Right inguinal hernia Secondhand smoke exposure Asymptomatic microscopic hematuria Right groin pain Vertigo Bladder pain Poor short term memory Thymoma Cyst of right kidney Cyst of left kidney Hydronephrosis Muscular deconditioning Change in consistency of stool Bronchiectasis Exposure to hepatitis A BROWN (dyspnea on exertion) Mycobacterial disease, pulmonary Acute pain of left shoulder Anxiety about health Resistant hypertension GERD (gastroesophageal reflux disease) Medication side effects present Stress due to illness of family member Somatic dysfunction of lower extremity Segmental and somatic dysfunction of rib cage Other stressful life events affecting family and household Lumbar region somatic dysfunction Segmental and somatic dysfunction of abdomen and other regions Sacral region somatic dysfunction Pelvic somatic dysfunction Chronic thoracic back pain Scoliosis of thoracic spine Sleep disorder Cerumen impaction Fecal incontinence BRBPR (bright red blood per rectum) Cranial somatic dysfunction Thoracic region somatic dysfunction Cervical somatic dysfunction Stiff neck Onychomycosis Segmental and somatic dysfunction of upper extremity Actinic keratoses Aortic aneurysm, abdominal Renal cyst Gallbladder polyp Hiatal hernia Chronic right shoulder pain Chronic pain of left ankle Adverse reaction to antibiotic Frequent loose stools Abdominal bloating Constipation Skin rash Hypothyroidism Shoulder pain Scoliosis Gout Elevated PSA Benign prostatic hyperplasia Pancreatitis Gluten enteropathy Low testosterone Cardiac arrhythmia Aortic regurgitation (1994) Surgical History (Updated 01/16/25 @ 08:41 by Kiki Catherine RN) History of bronchoscopy (02/06/22) Hx of bilateral inguinal hernia repair (11/10/24) S/P urological surgery (03/18/24) Hx of right inguinal hernia repair (07/17/23) Hx of heart artery stent (07/11/21) Hx of thymectomy (02/07/23) Anesthesia Ankle fracture (1978) History of pancreatic surgery (1994) History of eyelid surgery (2016) Family History Brother Age: 68 No problems noted. Father Heart disease Mental health problem Smoker Alcoholic Brother No problems noted. Grandfather Cancer Grandmother No problems noted. Mother No problems noted. Grandfather Fall from roof Grandmother Cancer Sister Overweight Sister No problems noted. Social History marital status: number of children: 0 household members: significant other and none lives independently: Yes caregiver/support person: No housing: house Smoking Status: Never smoker second hand exposure: No alcohol intake: former substance use type: does not use caffeine: Yes Type(s) of exercise: weight lifting and other frequency: daily duration: > 90 minutes/day Meds Home Medications and Allergies Home Medications Medication Instructions Recorded Confirmed Type nitroglycerin 0.4 mg sublingual 0.4 mg sublingual Q5M PRN Chest 07/25/21 01/14/25 History tablet Pain amlodipine 10 mg tablet 10 mg PO QAM #90 tabs 08/08/21 01/14/25 Rx potassium chloride 10 mEq 40 meq PO QAM 10/21/21 01/14/25 History tablet,extended release carvedilol 3.125 mg tablet 3.125 mg PO BID 01/13/22 01/14/25 History losartan 50 mg tablet 25 mg PO BID 01/13/22 01/14/25 History rosuvastatin 10 mg tablet 10 mg PO DAILY 01/13/22 01/14/25 History indomethacin 50 mg capsule See Rx Instructions .Route 01/28/24 01/14/25 Rx .COMPLEX #30 caps zolpidem 10 mg tablet 10 mg PO BEDTIME PRN insomnia #30 09/18/24 01/14/25 Rx tabs azelastine 137 mcg (0.1 %) nasal 2 spray intranasal BID PRN 01/16/25 01/16/25 History spray allergies clopidogrel 75 mg tablet 75 mg PO DAILY 01/16/25 01/16/25 History sodium chloride 7 % for 4 ml inhalation BID 01/16/25 01/16/25 History nebulization Allergies Allergy/AdvReac Type Severity Reaction Status Date / Time tolterodine Allergy Severe Inability Verified 01/16/25 14:23 to void. latex Allergy Rash Verified 01/07/25 15:03 adhesive tape AdvReac ITCHING Verified 01/16/25 14:23 metoprolol AdvReac Swelling. Verified 01/16/25 14:21 peanut-containing drug AdvReac Red face. Uncoded 01/16/25 14:22 products Assessment & Plan Time-Based Coding :: [TOTAL MINUTES] spent with patient and on the chart (including review of chart, obtaining history, exam, reviewing outside data, placing orders, documenting exam and treatment plan, and counseling patient) on [DATE]. PROFEE Journeyman Mechanic Document charge(s): No
[2025-01-21 13:47] VITALS: BP 135/84; PULSE 62; RESP 16; TEMP 36.4; O2SAT 97
[2025-01-21] MEDS: LACTATED RINGERS 1,000 ML 42 ML IV (13:49)
[2025-01-21] MEDS: LIDOCAINE 2% INJ SDV 5ML 5 ML TOP (14:21)
--- NOTE | 2025-01-21 14:35 | PM.PROC.IH ---
Procedures Date/Time Date of procedure: 01/21/25 Time of procedure: 14:30 General Procedure description: Procedure: Bronchoscopy, bronchoalveolar lavage Indication: Bronchiectasis, cough, history of pulmonary nontuberculous mycobacterium infection Procedure: Following a time-out for verification of consent, procedure, patient adverse reaction, allergy and medications, conscious sedation was initiated by anesthesia. The bronchoscope was passed into the patient's left naris. The posterior pharynx, vocal cords and vocal folds were grossly normal. The anterior anatomy of the trachea was grossly normal. There were scant thick yellow tinged mucoid secretions in the right upper lobe and right middle lobe. The right upper lobe and subsequently the right middle lobe where wedged and lavaged with saline with return of mildly mucopurulent appearing fluid. There was not rapid reaccumulation of mucus and in general the majority of the airways bilaterally were clear. There was no endobronchial lesion. The procedure was terminated after successful lavage. The patient tolerated the procedure well, there were no immediate complications. PROFEE Special Education Associate Document charge(s): Yes
[2025-01-21 14:37] VITALS: BP 119/68; PULSE 65; RESP 18; TEMP 36.6; O2SAT 92
[2025-01-21 14:41] VITALS: BP 103/58; PULSE 65; RESP 18; TEMP 36.6; O2SAT 94
[2025-01-21 14:47] VITALS: BP 110/67; PULSE 65; RESP 18; O2SAT 95
== END 2025-01-21 15:45 | disposition home or self-care (01) ==
PROVIDERS: Family Provider Family Medicine; PCP Family Medicine; Referring Provider Internal Medicine Critical Care Medicine; Visit Provider Internal Medicine Critical Care Medicine
PROC: 0BJ08ZZ Inspection of Tracheobronchial Tree, Via Natural or Artificial Opening Endoscopic (ICD-10-PCS; CPT 31622; principal; 2025-01-21 14:00)
CPT/HCPCS: 87070; 87116; 87205; 87206; J2704

== ENCOUNTER 2025-01-21 19:27 | Inpatient (IN) | payer MEDICARE, OTHER, SELFPAY ==
[2025-01-21] VITALS (13 sets, daily range): BP systolic 133–168; BP diastolic 69–84; PULSE 79–88; RESP 18–33; TEMP 37.1–39; O2SAT 91–96; BMI 20.9
--- NOTE | 2025-01-21 19:39 | EKG_ITS ---
[facility] [address] [place] [address] Test Date: 2025-01-21 Pat Name: Segun Hernandez Department: [facility] Room: Gender: Male Chief Vendor Quality: [facility] : 1950 Requested By: Order Number: [id number] Reading MD: Shaquille Edwards MD Measurements Intervals [place] Rate: 78 P: [place]: QRS: -14 QRSD: 88 T: 80 QT: 376 QTc: 428 Interpretive Statements Probable sinus rhythm, baseline artifact makes this difficult to be sure Nonspecific ST and T wave abnormality Electronically Signed On 01-22-2025 7:32:28 PDT by Shaquille Edwards MD
--- NOTE | 2025-01-21 19:47 | DI.RAD.S_ITS ---
PROCEDURE: XR CHEST 1V INDICATIONS: suspected sepsis TECHNIQUE: One view of the chest was acquired. COMPARISON: [facility], CR, XR CHEST 2V, 12/27/2024, 19:09. [facility], CR, XR CHEST 2V, 02/27/2023, 16:09. FINDINGS: Surgical changes and devices: None. Lungs and pleura: Stable right middle lung and lower lung zone opacities. No pneumothorax. Mediastinum: Mediastinal contours appear normal. Heart size is normal. Bones and chest wall: No suspicious bony lesions. Overlying soft tissues appear unremarkable. IMPRESSION: No acute cardiopulmonary abnormality is seen. No pneumothorax. Stable right middle lung and lower lung zone opacities. Dictated by: Garry Gayle M.D. on 01/21/2025 at 20:29 Approved by: Garry Gayle M.D. on 01/21/2025 at 20:30
--- NOTE | 2025-01-21 19:59 | PC.NURSE ---
patient asked for water during IV placement. handed water bottle to the pt. The pt took as sip of water from the bottle and swished it and swallowed the water then handed the bottle back to the . The looked in the bottle and gasped and stated there's a mouse in this bottle. The handed the nurse the bottle and there was in fact a mouse in the bottom of the bottle. Provider aware.
[2025-01-21 20:04] LABS: Add Manual Diff / Slide Review NO; Basophils Absolute Auto 0 /uL (0-100); Basophils Percent Auto 0.4 % (0-2); Eosinophils Absolute Auto 100 /uL (0-450); Eosinophils Percent Auto 1.6 % (2-4); Hemoglobin 13.6 g/dL (13.5-17.5); Lymphocytes Absolute Auto 400 /uL (1100-4500); Lymphocytes Percent Auto 5.1 % (25-40); Mean Corpuscular HGB Conc 33.8 % (30-36); Mean Corpuscular Hemoglobin 28.7 PG (26-34); Mean Corpuscular Volume 84.8 fL (80-100); Monocytes Absolute Auto 400 /uL (0-900); Monocytes Percent Auto 4.5 % (3-14); Neutrophils Absolute Auto 7300 /uL (1500-7000); Neutrophils Percent Auto 88.4 % (50-75); Platelet Count 160 X10^3/uL (150-400); Red Blood Cell Count 4.72 X10^6/uL (4.5-5.9); Red Cell Distribution Width 14.3 % (11.6-14.8); White Blood Cell Count 8.2 X10^3/uL (4.5-11.0)
--- NOTE | 2025-01-21 20:08 | ED.FEVER ---
HPI - Fever General Chief Complaint: Fever Stated Complaint: fever, vomiting s/p surgery earlier today Time Seen by Provider: 01/21/25 19:33 Source: patient and family Mode of arrival: Wheelchair History of Present Illness HPI Narrative: 74-year-old male nonsmoker with bronchiectasis, tree in bud opacities/chronic bronchiolitis, history of MAC and M.abscessus, HTN, n had bronchoscopy earlier today here at [facility] and colonoscopy 1 week ago, presents with fever at home of 102 103 and 2 episodes of nonbilious nonbloody vomit. Of note he also drank some water from his home water bottle that had a mouse in it. He is not on oxygen at home he does have a chronic baseline intermittent cough but nonbloody and also has mostly nonproductive but the last 2 times he coughed it was productive clear sputum. Other than what is stated 14 point review of system is negative Related Data Home Medications Medication Instructions Recorded Confirmed nitroglycerin 0.4 mg sublingual 0.4 mg sublingual Q5M PRN Chest 07/25/21 01/21/25 tablet Pain potassium chloride 10 mEq 40 meq PO QAM 10/21/21 01/21/25 tablet,extended release carvedilol 3.125 mg tablet 3.125 mg PO BID 01/13/22 01/21/25 losartan 50 mg tablet 25 mg PO BID 01/13/22 01/21/25 rosuvastatin 10 mg tablet 10 mg PO DAILY 01/13/22 01/21/25 azelastine 137 mcg (0.1 %) nasal 2 spray intranasal BID PRN 01/16/25 01/16/25 spray allergies clopidogrel 75 mg tablet 75 mg PO DAILY 01/16/25 01/21/25 sodium chloride 7 % for 4 ml inhalation BID 01/16/25 01/16/25 nebulization Previous Rx's Medication Instructions Recorded amlodipine 10 mg tablet 10 mg PO QAM #90 tabs 08/08/21 indomethacin 50 mg capsule See Rx Instructions .Route 01/28/24 .COMPLEX #30 caps zolpidem 10 mg tablet 10 mg PO BEDTIME PRN insomnia #30 09/18/24 tabs Allergies Allergy/AdvReac Type Severity Reaction Status Date / Time tolterodine Allergy Severe Inability Verified 01/21/25 13:44 to void. latex Allergy Rash Verified 01/21/25 13:44 adhesive tape AdvReac ITCHING Verified 01/21/25 13:44 metoprolol AdvReac Swelling. Verified 01/21/25 13:44 peanut-containing drug AdvReac Red face. Uncoded 01/16/25 14:22 products Review of Systems Review of Systems ROS Unobtainable: All systems reviewed & are unremarkable except as noted in HPI and below Patient History Medical History (Updated 01/22/25 @ 02:35 by Shaquille Lcehuga DO) Myocardial infarction Mcfarland's esophagus Sore throat Insomnia Hx of colonic polyps Incomplete emptying of bladder History of urinary retention Episodic weakness Strain of adductor muscle of thigh COPD (chronic obstructive pulmonary disease) Nontuberculous mycobacterial disease of lung Benign prostatic hyperplasia with lower urinary tract symptoms Acute pain of right knee Sleep apnea Diastolic heart failure Right inguinal hernia Secondhand smoke exposure Asymptomatic microscopic hematuria Right groin pain Vertigo Bladder pain Poor short term memory Thymoma Cyst of right kidney Cyst of left kidney Hydronephrosis Muscular deconditioning Change in consistency of stool Bronchiectasis Exposure to hepatitis A BROWN (dyspnea on exertion) Mycobacterial disease, pulmonary Acute pain of left shoulder Anxiety about health Resistant hypertension GERD (gastroesophageal reflux disease) Medication side effects present Stress due to illness of family member Somatic dysfunction of lower extremity Segmental and somatic dysfunction of rib cage Other stressful life events affecting family and household Lumbar region somatic dysfunction Segmental and somatic dysfunction of abdomen and other regions Sacral region somatic dysfunction Pelvic somatic dysfunction Chronic thoracic back pain Scoliosis of thoracic spine Sleep disorder Cerumen impaction Fecal incontinence BRBPR (bright red blood per rectum) Cranial somatic dysfunction Thoracic region somatic dysfunction Cervical somatic dysfunction Stiff neck Onychomycosis Segmental and somatic dysfunction of upper extremity Actinic keratoses Aortic aneurysm, abdominal Renal cyst Gallbladder polyp Hiatal hernia Chronic right shoulder pain Chronic pain of left ankle Adverse reaction to antibiotic Frequent loose stools Abdominal bloating Constipation Skin rash Hypothyroidism Shoulder pain Scoliosis Gout Elevated PSA Benign prostatic hyperplasia Pancreatitis Gluten enteropathy Low testosterone Cardiac arrhythmia Aortic regurgitation (1994) Surgical History (Updated 01/16/25 @ 08:41 by Kiki Catherine RN) History of bronchoscopy (02/06/22) Hx of bilateral inguinal hernia repair (11/10/24) S/P urological surgery (03/18/24) Hx of right inguinal hernia repair (07/17/23) Hx of heart artery stent (07/11/21) Hx of thymectomy (02/07/23) Anesthesia Ankle fracture (1978) History of pancreatic surgery (1994) History of eyelid surgery (2016) Family History Brother Age: 68 No problems noted. Father Heart disease Mental health problem Smoker Alcoholic Brother No problems noted. Grandfather Cancer Grandmother No problems noted. Mother No problems noted. Grandfather Fall from roof Grandmother Cancer Sister Overweight Sister No problems noted. Social History marital status: number of children: 0 household members: significant other and none lives independently: Yes caregiver/support person: No housing: house Smoking Status: Never smoker second hand exposure: No alcohol intake: former substance use type: does not use caffeine: Yes Type(s) of exercise: weight lifting and other frequency: daily duration: > 90 minutes/day Smoking Status: Never smoker alcohol intake frequency: 0-2 drinks per day Exam Narrative Exam Narrative: GENERAL: [74] year old patient appears stated age. Well-developed patient, in mild distress. HEAD: Atraumatic. Normocephalic. EYES: Pupils equal round and reactive. Extraocular motions intact. No scleral icterus. No injection or drainage. ENT: Nose without bleeding, purulent drainage. Throat without erythema, tonsillar hypertrophy or exudate. Airway patent. NECK: Trachea midline. Non tender CARDIOVASCULAR: Regular rate and rhythm without murmurs, gallops, or rubs. RESPIRATORY: Decreased Breath sounds equal bilaterally. No wheezes, rales, or rhonchi. GASTROINTESTINAL: Abdomen soft, non-tender, nondistended. EXTREMITIES: No edema or joint tenderness. BACK: Nontender without deformity or crepitance. No flank tenderness. NEURO: AOx3. SKIN: No rash or erythema of visible areas Initial Vital Signs Initial Vital Signs: Vital Signs Temperature 98.7 F 01/21/25 19:35 Pulse Rate 83 01/21/25 19:35 Respiratory Rate 20 01/21/25 19:35 Blood Pressure 153/77 H 01/21/25 19:35 Pulse Oximetry 92 01/21/25 19:35 Oxygen Delivery Method Room Air 01/21/25 19:35 Course Orders Ordered: ED Orders 01/21/25 19:39 EKG-12 Lead Stat 01/21/25 19:47 XR chest 1V Stat RT Consult Eval and Treat NOW 01/21/25 19:53 Complete Blood Count AUTO DIFF Stat Comprehensive Metabolic Panel Stat Lactate (Lactic Acid) Stat Lipase Stat PTT Partial Thromboplastin Anthony Stat Procalcitonin Stat Prothrombin Time INR Stat 01/21/25 21:20 Blood Culture Stat 01/21/25 21:23 Respiratory Panel (Film Array) Stat Discontinued Medications Acetaminophen (Acetaminophen 325 Mg Tablet) 650 mg PO NOW ONE Stop: 01/22/25 01:19 Last Admin: 01/22/25 01:29 Dose: 650 mg Documented By: Sodium Chloride (Normal Saline 0.9%) 1,000 mls @ 1,000 mls/hr IV BOLUS ONE Stop: 01/21/25 20:45 Last Infusion: 01/21/25 22:39 Dose: Infused Documented By: Infusion: 01/21/25 22:08 Dose: 1,000 mls/hr Documented By: Infusion: 01/21/25 20:57 Dose: 0 mls/hr Documented By: Admin: 01/21/25 20:15 Dose: 1,000 mls/hr Documented By: HIRAM Ceftriaxone Sodium 2,000 mg/ (Sodium Chloride) 100 mls @ 200 mls/hr IV NOW ONE Stop: 01/21/25 23:21 Last Infusion: 01/22/25 00:21 Dose: Infused Documented By: Admin: 01/21/25 23:35 Dose: 200 mls/hr Documented By: Ibuprofen (Ibuprofen 400 Mg Tablet) 400 mg PO NOW ONE Stop: 01/22/25 01:19 Last Admin: 01/22/25 01:30 Dose: 400 mg Documented By: Vital Signs Vital signs: Vital Signs - 8 hr 01/21/25 19:35 01/21/25 19:45 01/21/25 20:00 Temperature 98.7 F Pulse Rate 83 79 Respiratory Rate 20 Blood Pressure 153/77 H 146/72 H Pulse Oximetry 92 96 Oxygen Delivery Method Room Air Oxygen Flow Rate 01/21/25 20:00 01/21/25 20:30 01/21/25 20:30 Temperature Pulse Rate 80 80 Respiratory Rate Blood Pressure 166/79 H Pulse Oximetry 94 91 Oxygen Delivery Method Room Air Oxygen Flow Rate 01/21/25 21:00 01/21/25 21:01 01/21/25 21:01 Temperature Pulse Rate 88 85 Respiratory Rate Blood Pressure 168/69 H Pulse Oximetry 92 94 Oxygen Delivery Method Oxygen Flow Rate 01/21/25 21:30 01/21/25 21:30 01/21/25 22:00 Temperature Pulse Rate 82 83 Respiratory Rate Blood Pressure 133/73 Pulse Oximetry 92 91 Oxygen Delivery Method Oxygen Flow Rate 01/21/25 22:00 01/21/25 22:31 01/21/25 22:31 Temperature Pulse Rate 87 Respiratory Rate Blood Pressure 144/71 H 159/84 H Pulse Oximetry 91 Oxygen Delivery Method Oxygen Flow Rate 01/21/25 23:00 01/21/25 23:00 01/21/25 23:20 Temperature 102.2 F H Pulse Rate 81 Respiratory Rate 18 26 H Blood Pressure 145/71 H Pulse Oximetry 92 91 Oxygen Delivery Method Room Air Oxygen Flow Rate 01/21/25 23:27 01/21/25 23:27 01/21/25 23:30 Temperature Pulse Rate 81 82 Respiratory Rate 32 H 33 H Blood Pressure 142/75 H Pulse Oximetry 92 92 Oxygen Delivery Method Nasal Cannula Oxygen Flow Rate 1.5 01/22/25 00:00 01/22/25 00:16 01/22/25 00:16 Temperature Pulse Rate 79 80 Respiratory Rate 32 H 32 H Blood Pressure 129/72 Pulse Oximetry 94 94 Oxygen Delivery Method Oxygen Flow Rate 01/22/25 00:30 01/22/25 00:30 01/22/25 01:00 Temperature Pulse Rate 79 74 Respiratory Rate 32 H 35 H Blood Pressure 134/80 Pulse Oximetry 94 94 Oxygen Delivery Method Nasal Cannula Nasal Cannula Oxygen Flow Rate 1.5 1.5 01/22/25 01:00 01/22/25 01:13 01/22/25 01:29 Temperature 100.2 F H 100.4 F H Pulse Rate Respiratory Rate Blood Pressure 127/69 Pulse Oximetry Oxygen Delivery Method Oxygen Flow Rate 01/22/25 01:30 Temperature 100.4 F H Pulse Rate Respiratory Rate Blood Pressure Pulse Oximetry Oxygen Delivery Method Oxygen Flow Rate MDM - Fever Lab Data 01/21/25 19:53 01/21/25 19:53 Labs: Lab Results 01/21/25 01/21/25 Range/Units 19:53 21:23 WBC 8.2 (4.5-11.0) X10^3/uL RBC 4.72 (4.5-5.9) X10^6/uL Hgb 13.6 (13.5-17.5) g/dL Hct 40.0 L (41-53) % MCV 84.8 (80-100) fL MCH 28.7 (26-34) PG MCHC 33.8 (30-36) % RDW 14.3 (11.6-14.8) % Plt Count 160 (150-400) X10^3/uL Neut % (Auto) 88.4 H (50-75) % Lymph % (Auto) 5.1 L (25-40) % [place] % (Auto) 4.5 (3-14) % Eos % (Auto) 1.6 L (2-4) % Baso % (Auto) 0.4 (0-2) % Neut # (Auto) 7300 H (9199-4299) /uL Lymph # (Auto) 400 L (8641-2121) /uL [place] # (Auto) 400 (0-900) /uL Eos # (Auto) 100 (0-450) /uL Baso # (Auto) 0 (0-100) /uL PT 11.8 (9.4-12.5) SECONDS INR 1.0 (0.9-1.3) APTT 27 (25.1-36.5) SECONDS Sodium 134 L (137-145) mmol/L Potassium 3.4 (3.4-5.1) mmol/L Chloride 102 (98-107) mmol/L Carbon Dioxide 23 (22-32) mmol/L BUN 17 (9-20) mg/dL Creatinine 1.04 (0.66-1.25) mg/dL Estimated GFR > 60 (>60) mL/min BUN/Creatinine Ratio 16.3 (6-22) Glucose 113 H (70-99) mg/dL Lactate 1.5 (0.7-2.1) mmol/L Calcium 8.8 (8.4-10.2) mg/dL Total Bilirubin 0.9 (0.2-1.3) mg/dL AST 38 (17-59) IU/L ALT 27 (<50) IU/L Alkaline Phosphatase 82 (38-126) U/L Total Protein 6.6 (6.3-8.2) g/dL Albumin 4.1 (3.5-5.0) g/dL Globulin 2.5 (1.7-4.1) g/dL Albumin/Globulin Ratio 1.6 (1.0-2.8) Lipase 28 (23-300) U/L Procalcitonin 0.054 (<0.5) ng/mL Chlamy pneumoniae PCR Not detected (Not Detect) Adenovirus (PCR) Not detected (Not Detect) B. pertussis DNA (PCR) Not detected (Not Detect) B.parapertussis DNA PCR Not detected (Not Detecte) Coronavirus OC43 (PCR) Not detected (Not Detect) Coronavirus HKU1 (PCR) Not detected (Not Detect) Coronavirus 229E (PCR) Not detected (Not Detect) SARS-CoV-2 (PCR) Not detected (Not Detecte) Coronavirus NL63 (PCR) Not detected (Not Detect) Human Metapneumovir PCR Not detected (Not Detect) Influenza Type A (PCR) Not detected (Not Detect) Influenza Type B (PCR) Not detected (Not Detect) M. pneumoniae (PCR) Not detected (Not Detect) Parainfluenza 1 (PCR) Not detected (Not Detect) Parainfluenza 2 (PCR) Not detected (Not Detect) Parainfluenza 3 (PCR) Not detected (Not Detect) Parainfluenza 4 (PCR) Not detected (Not Detect) RSV (PCR) Not detected (Not Detect) Entero/Rhino (PCR) Not detected (Not Detect) Urine Dip Bedside Urine Glucose Negative Bedside Urine Bilirubin - Negative Bedside Urine Ketone - Negative Urine Specific [place] 1.015 Bedside Urine Occult Blood +/- Bedside Urine pH 7 Bedside Urine Protein - Negative Bedside Urine Urobilinogen - Negative Bedside Urine Nitrite - Negative Bedside Urine Leukocytes - Negative Esterase Imaging Data Chest x-ray: Radiologist's Impression: [address] [address] XRay Report Signed Patient: Segun Hernandez MR#: [id number] : 1950 Acct:[id number] Age/Sex: 74 / M Date of Service: 01/21/25 Loc: ED Accession Number: [id number] Procedure: XR chest 1V Ordering Provider: Shaquille Lechuga D.O. PROCEDURE: XR CHEST 1V INDICATIONS: suspected sepsis TECHNIQUE: One view of the chest was acquired. COMPARISON: [facility], CR, XR CHEST 2V, 12/27/2024, 19:09. [facility], CR, XR CHEST 2V, 02/27/2023, 16:09. FINDINGS: Surgical changes and devices: None. Lungs and pleura: Stable right middle lung and lower lung zone opacities. No pneumothorax. Mediastinum: Mediastinal contours appear normal. Heart size is normal. Bones and chest wall: No suspicious bony lesions. Overlying soft tissues appear unremarkable. IMPRESSION: No acute cardiopulmonary abnormality is seen. No pneumothorax. Stable right middle lung and lower lung zone opacities. Dictated by: Garry Gayle M.D. on 01/21/2025 at 20:29 Approved by: Garry Gayle M.D. on 01/21/2025 at 20:30 ECG Data Interpretation: Junctional Rhythm QRS 88 QT [address]-t wave change Change from 07/11/22 MDM Narrative Medical decision making narrative: All lab work, vital signs, medication list, imaging studies, previous ER visits, nurse triage note, and all previous visits all reviewed. Differential diagnosis includes sepsis sirs COVID flu RSV dehydration electrolyte derangement, Anaerobic vs Bacterial Pneumonia. Patient was given normal saline 500 mL bolus x2. Attempted to call multiple times with no call back from the oncall list. Case d/w Dr.Rai Parveen SONG at [facility] whom I spoke with regarding this pt's complex medical history. She recommended coverage for bacterial pneumonia and anaerobic coverage but to avoid macrolide coverage and to await culture and sensitivity from the report and to f/u with parveen SONG and TAY SONG. Pt given ceftriaxone IV and zosyn IV here in the ER. Case discussed with hospitalist who has graciously accepted the patient for inpatient admission. Discharge Plan Departure Patient Disposition: Admitted As Inpatient Clinical Impression: Fever Qualifiers: Fever type: post-procedural Qualified Code(s): R50.82 - Postprocedural fever Cough Qualifiers: Cough type: chronic Qualified Code(s): R05.3 - Chronic cough Instructions: DI for Fever (Symptom) -- Adult Activity Restrictions/Additional Instructions: Return with new or worsening. Follow up with PCP and subspecialists this week. Prescriptions: No Action nitroglycerin 0.4 mg tablet, sublingual 0.4 mg sublingual Q5M PRN (Reason: Chest Pain) Rx Instructions: do not exceed 3 doses per episode amlodipine 10 mg tablet 10 mg PO QAM Qty: 90 1RF indomethacin 50 mg capsule See Rx Instructions .ROUTE .COMPLEX Qty: 30 5RF Dose Instruction: TAKE ONE CAPSULE BY MOUTH THREE TIMES DAILY Rx Instructions: TAKE ONE CAPSULE BY MOUTH THREE TIMES DAILY potassium chloride 10 mEq tablet extended release 40 meq PO QAM rosuvastatin 10 mg tablet 10 mg PO DAILY carvedilol 3.125 mg tablet 3.125 mg PO BID zolpidem 10 mg tablet 10 mg PO BEDTIME PRN (Reason: insomnia) Qty: 30 5RF losartan 50 mg tablet 25 mg PO BID clopidogrel 75 mg tablet 75 mg PO DAILY azelastine 137 mcg (0.1 %) spray,non-aerosol 2 spray intranasal BID PRN (Reason: allergies) sodium chloride 7 % solution for nebulization 4 ml inhalation BID Referrals: Emanuel Amador DO [Primary Care Provider] - Stand Alone Forms: Patient Portal/API/Survey
[2025-01-21 20:10] LABS: Prothrombin Time 11.8 SECONDS (9.4-12.5)
[2025-01-21 20:13] LABS: Lactate (Lactic Acid) 1.5 mmol/L (0.7-2.1); PTT Partial Thromboplastin Tim 27 SECONDS (25.1-36.5)
[2025-01-21 20:14] LABS: Alanine Aminotransferase 27 IU/L (<50); Albumin 4.1 g/dL (3.5-5.0); Albumin Globulin Ratio 1.6 (1.0-2.8); Alkaline Phosphatase 82 U/L (38-126); Aspartate Aminotransferase 38 IU/L (17-59); BUN Creatinine Ratio 16.3 (6-22); Bilirubin Total 0.9 mg/dL (0.2-1.3); Blood Urea Nitrogen 17 mg/dL (9-20); Calcium 8.8 mg/dL (8.4-10.2); Carbon Dioxide 23 mmol/L (22-32); Chloride 102 mmol/L (98-107); Estimated Glomerular Filt Rate > 60 mL/min (>60); Globulin 2.5 g/dL (1.7-4.1); Glucose 113 mg/dL (70-99); HEMOLYSIS 22 (0-50); Lipase 28 U/L (23-300); Potassium 3.4 mmol/L (3.4-5.1); Sodium 134 mmol/L (137-145); Total Protein 6.6 g/dL (6.3-8.2)
[2025-01-21] MEDS: SODIUM CHLORIDE 0.9% 1,000 ML 1000 ML IV (20:15)
[2025-01-21 20:31] LABS: Procalcitonin 0.054 ng/mL (<0.5)
[2025-01-21 22:17] LABS: Adenovirus Not Detected (Not Detect); B. parapertussis Not Detected (Not Detecte); Bordetella pertussis Not Detected (Not Detect); Chlamydophila pneumoniae Not Detected (Not Detect); Coronavirus 229E Not Detected (Not Detect); Coronavirus HKU1 Not Detected (Not Detect); Coronavirus NL 63 Not Detected (Not Detect); Coronavirus OC43 Not Detected (Not Detect); Human Metapneumovirus Not Detected (Not Detect); Human Rhinovirus/Enterovirus Not Detected (Not Detect); Influenza A Not Detected (Not Detect); Influenza B Not Detected (Not Detect); Mycoplasma pneumoniae Not Detected (Not Detect); Parainfluenza Virus 1 Not Detected (Not Detect); Parainfluenza Virus 2 Not Detected (Not Detect); Parainfluenza Virus 3 Not Detected (Not Detect); Parainfluenza Virus 4 Not Detected (Not Detect); Respiratory Syncytial Virus Not Detected (Not Detect); SARS- CoV-2 Not Detected (Not Detecte)
[2025-01-21] MEDS: cefTRIAXone 2,000 MG in SODIUM CHLORIDE 0.9% 100 ML 200 MG IV (23:35)
[2025-01-22] VITALS (17 sets, daily range): BP systolic 106–134; BP diastolic 54–80; PULSE 49–80; RESP 16–35; TEMP 36.2–38; O2SAT 94–97; BMI 21.6
[2025-01-22] MEDS: ACETAMINOPHEN 325 MG TABLET 650 MG PO (01:29)
[2025-01-22] MEDS: IBUPROFEN 400 MG TABLET PO (01:30)
[2025-01-22] MEDS: PIPERACILLIN/TAZO 4.5 GM in SODIUM CHLORIDE 0.9% 100 ML IV (02:37)
--- NOTE | 2025-01-22 03:04 | P.HP_ITS ---
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 Per the patient report, the patient has a known history of MAC and mycobacterium abscessus infections about 3 years ago. About 1-1/2-year ago the patient completed his triple antibiotic treatment for this infection. However recently the patient's rotary cutter recommended that he have a bronchoscopy as the patient cannot produce sputum for testing to see if the patient had recurrent infection. The patient going to have his bronchoscopy today and a few hours after getting home, the patient started to have a fever. The patient also reports of 2 episodes of nonbloody nonbilious vomiting. The patient is unclear if he has aspirated or not. Otherwise the patient denies any chest pain, shortness of breath, diarrhea or syncope. In the emergency room, the patient was hemodynamically stable though the patient did have a fever of 102. Lab shows no sign of infection with normal WBC. X-ray also shows no acute findings. Our ER physician did contact the rotary cutter on-call who recommended to start patient on Zosyn at this time. And admit the patient to monitor. [facility] Medical History (Updated 01/22/25 @ 02:35 by Shaquille Lechuga DO) Myocardial infarction Mcfarland's esophagus Sore throat Insomnia Hx of colonic polyps Incomplete emptying of bladder History of urinary retention Episodic weakness Strain of adductor muscle of thigh COPD (chronic obstructive pulmonary disease) Nontuberculous mycobacterial disease of lung Benign prostatic hyperplasia with lower urinary tract symptoms Acute pain of right knee Sleep apnea Diastolic heart failure Right inguinal hernia Secondhand smoke exposure Asymptomatic microscopic hematuria Right groin pain Vertigo Bladder pain Poor short term memory Thymoma Cyst of right kidney Cyst of left kidney Hydronephrosis Muscular deconditioning Change in consistency of stool Bronchiectasis Exposure to hepatitis A BROWN (dyspnea on exertion) Mycobacterial disease, pulmonary Acute pain of left shoulder Anxiety about health Resistant hypertension GERD (gastroesophageal reflux disease) Medication side effects present Stress due to illness of family member Somatic dysfunction of lower extremity Segmental and somatic dysfunction of rib cage Other stressful life events affecting family and household Lumbar region somatic dysfunction Segmental and somatic dysfunction of abdomen and other regions Sacral region somatic dysfunction Pelvic somatic dysfunction Chronic thoracic back pain Scoliosis of thoracic spine Sleep disorder Cerumen impaction Fecal incontinence BRBPR (bright red blood per rectum) Cranial somatic dysfunction Thoracic region somatic dysfunction Cervical somatic dysfunction Stiff neck Onychomycosis Segmental and somatic dysfunction of upper extremity Actinic keratoses Aortic aneurysm, abdominal Renal cyst Gallbladder polyp Hiatal hernia Chronic right shoulder pain Chronic pain of left ankle Adverse reaction to antibiotic Frequent loose stools Abdominal bloating Constipation Skin rash Hypothyroidism Shoulder pain Scoliosis Gout Elevated PSA Benign prostatic hyperplasia Pancreatitis Gluten enteropathy Low testosterone Cardiac arrhythmia Aortic regurgitation (1994) Surgical History (Updated 01/16/25 @ 08:41 by Kiki Catherine RN) History of bronchoscopy (02/06/22) Hx of bilateral inguinal hernia repair (11/10/24) S/P urological surgery (03/18/24) Hx of right inguinal hernia repair (07/17/23) Hx of heart artery stent (07/11/21) Hx of thymectomy (02/07/23) Anesthesia Ankle fracture (1978) History of pancreatic surgery (1994) History of eyelid surgery (2016) Family History Brother Age: 68 No problems noted. Father Heart disease Mental health problem Smoker Alcoholic Brother No problems noted. Grandfather Cancer Grandmother No problems noted. Mother No problems noted. Grandfather Fall from roof Grandmother Cancer Sister Overweight Sister No problems noted. Social History marital status: number of children: 0 household members: significant other and none lives independently: Yes caregiver/support person: No housing: house Smoking Status: Never smoker second hand exposure: No alcohol intake: former substance use type: does not use caffeine: Yes Type(s) of exercise: weight lifting and other frequency: daily duration: > 90 minutes/day Meds Home Medications and Allergies Home Medications Medication Instructions Recorded Confirmed Type nitroglycerin 0.4 mg sublingual 0.4 mg sublingual Q5M PRN Chest 07/25/21 01/21/25 History tablet Pain amlodipine 10 mg tablet 10 mg PO QAM #90 tabs 08/08/21 01/21/25 Rx potassium chloride 10 mEq 40 meq PO QAM 10/21/21 01/21/25 History tablet,extended release carvedilol 3.125 mg tablet 3.125 mg PO BID 01/13/22 01/21/25 History losartan 50 mg tablet 25 mg PO BID 01/13/22 01/21/25 History rosuvastatin 10 mg tablet 10 mg PO DAILY 01/13/22 01/21/25 History indomethacin 50 mg capsule See Rx Instructions .Route 01/28/24 01/21/25 Rx .COMPLEX #30 caps zolpidem 10 mg tablet 10 mg PO BEDTIME PRN insomnia #30 09/18/24 01/21/25 Rx tabs azelastine 137 mcg (0.1 %) nasal 2 spray intranasal BID PRN 01/16/25 01/16/25 History spray allergies clopidogrel 75 mg tablet 75 mg PO DAILY 01/16/25 01/21/25 History sodium chloride 7 % for 4 ml inhalation BID 01/16/25 01/16/25 History nebulization Allergies Allergy/AdvReac Type Severity Reaction Status Date / Time tolterodine Allergy Severe Inability Verified 01/21/25 13:44 to void. latex Allergy Rash Verified 01/21/25 13:44 adhesive tape AdvReac ITCHING Verified 01/21/25 13:44 metoprolol AdvReac Swelling. Verified 01/21/25 13:44 peanut-containing drug AdvReac Red face. Uncoded 01/16/25 14:22 products Review of Systems Review of Systems ROS: Yes All systems reviewed with the patient and are negative except as otherwise documented Exam Vital Signs (past 8 hours): - 01/21/25 19:35 01/21/25 19:45 01/21/25 20:00 Temperature 98.7 F Pulse Rate 83 79 Respiratory Rate 20 Blood Pressure 153/77 H 146/72 H Pulse Oximetry 92 96 Oxygen Delivery Method Room Air Oxygen Flow Rate 01/21/25 20:00 01/21/25 20:30 01/21/25 20:30 Temperature Pulse Rate 80 80 Respiratory Rate Blood Pressure 166/79 H Pulse Oximetry 94 91 Oxygen Delivery Method Room Air Oxygen Flow Rate 01/21/25 21:00 01/21/25 21:01 01/21/25 21:01 Temperature Pulse Rate 88 85 Respiratory Rate Blood Pressure 168/69 H Pulse Oximetry 92 94 Oxygen Delivery Method Oxygen Flow Rate 01/21/25 21:30 01/21/25 21:30 01/21/25 22:00 Temperature Pulse Rate 82 83 Respiratory Rate Blood Pressure 133/73 Pulse Oximetry 92 91 Oxygen Delivery Method Oxygen Flow Rate 01/21/25 22:00 01/21/25 22:31 01/21/25 22:31 Temperature Pulse Rate 87 Respiratory Rate Blood Pressure 144/71 H 159/84 H Pulse Oximetry 91 Oxygen Delivery Method Oxygen Flow Rate 01/21/25 23:00 01/21/25 23:00 01/21/25 23:20 Temperature 102.2 F H Pulse Rate 81 Respiratory Rate 18 26 H Blood Pressure 145/71 H Pulse Oximetry 92 91 Oxygen Delivery Method Room Air Oxygen Flow Rate 01/21/25 23:27 01/21/25 23:27 01/21/25 23:30 Temperature Pulse Rate 81 82 Respiratory Rate 32 H 33 H Blood Pressure 142/75 H Pulse Oximetry 92 92 Oxygen Delivery Method Nasal Cannula Oxygen Flow Rate 1.5 01/22/25 00:00 01/22/25 00:16 01/22/25 00:16 Temperature Pulse Rate 79 80 Respiratory Rate 32 H 32 H Blood Pressure 129/72 Pulse Oximetry 94 94 Oxygen Delivery Method Oxygen Flow Rate 01/22/25 00:30 01/22/25 00:30 01/22/25 01:00 Temperature Pulse Rate 79 74 Respiratory Rate 32 H 35 H Blood Pressure 134/80 Pulse Oximetry 94 94 Oxygen Delivery Method Nasal Cannula Nasal Cannula Oxygen Flow Rate 1.5 1.5 01/22/25 01:00 01/22/25 01:13 01/22/25 01:29 Temperature 100.2 F H 100.4 F H Pulse Rate Respiratory Rate Blood Pressure 127/69 Pulse Oximetry Oxygen Delivery Method Oxygen Flow Rate 01/22/25 01:30 01/22/25 01:30 01/22/25 01:30 Temperature 100.4 F H Pulse Rate 73 Respiratory Rate 30 H Blood Pressure 122/60 Pulse Oximetry 94 Oxygen Delivery Method Oxygen Flow Rate 01/22/25 02:00 01/22/25 02:00 01/22/25 02:41 Temperature 99.1 F Pulse Rate 71 Respiratory Rate 29 H Blood Pressure 124/64 Pulse Oximetry 94 Oxygen Delivery Method Nasal Cannula Oxygen Flow Rate 1.5 Oxygen Delivery Method Nasal Cannula Oxygen Flow Rate 1.5 Narrative Exam Narrative: Physical Exam: GENERAL: The patient is not in any acute distressed. Awake and alert. HEENT: Nonicteric sclerae, PERRLA, EOMI. Oropharynx clear. Moist mucous membranes. Conjunctivae appear well perfused. HEART: Regular rate and rhythm without murmurs. No lower extremities edema. LUNGS: Clear to auscultation bilaterally. No wheezing, crackles or rhonchi ABDOMEN: Soft, positive bowel sounds, nontender. SKIN: No rash, no excessive bruising, petechiae, or purpura. NEUROLOGIC: AxO x 3. Cranial nerves II-XII intact without motor/sensory deficit. Objective Labs 01/21/25 19:53 01/21/25 19:53 Labs: Laboratory Results - last 24 hr 01/21/25 01/21/25 19:53 21:23 WBC 8.2 RBC 4.72 Hgb 13.6 Hct 40.0 L MCV 84.8 MCH 28.7 MCHC 33.8 RDW 14.3 Plt Count 160 Neut % (Auto) 88.4 H Lymph % (Auto) 5.1 L Douglas % (Auto) 4.5 Eos % (Auto) 1.6 L Baso % (Auto) 0.4 Neut # (Auto) 7300 H Lymph # (Auto) 400 L Douglas # (Auto) 400 Eos # (Auto) 100 Baso # (Auto) 0 PT 11.8 INR 1.0 APTT 27 Sodium 134 L Potassium 3.4 Chloride 102 Carbon Dioxide 23 BUN 17 Creatinine 1.04 Estimated GFR > 60 BUN/Creatinine Ratio 16.3 Glucose 113 H Lactate 1.5 Calcium 8.8 Total Bilirubin 0.9 AST 38 ALT 27 Alkaline Phosphatase 82 Total Protein 6.6 Albumin 4.1 Globulin 2.5 Albumin/Globulin Ratio 1.6 Lipase 28 Procalcitonin 0.054 Chlamy pneumoniae PCR Not detected Adenovirus (PCR) Not detected B. pertussis DNA (PCR) Not detected B.parapertussis DNA PCR Not detected Coronavirus OC43 (PCR) Not detected Coronavirus HKU1 (PCR) Not detected Coronavirus 229E (PCR) Not detected SARS-CoV-2 (PCR) Not detected Coronavirus NL63 (PCR) Not detected Human Metapneumovir PCR Not detected Influenza Type A (PCR) Not detected Influenza Type B (PCR) Not detected M. pneumoniae (PCR) Not detected Parainfluenza 1 (PCR) Not detected Parainfluenza 2 (PCR) Not detected Parainfluenza 3 (PCR) Not detected Parainfluenza 4 (PCR) Not detected RSV (PCR) Not detected Entero/Rhino (PCR) Not detected Assessment & Plan Assessment & Plan narrative: Fever post bronchoscopy. Admit the patient to medical telemetry as inpatient. Of note the patient does have a remote history of MAC and mycobacterium abscessus that were reported to be treated a year and a half ago. Will continue empiric Zosyn for now as recommended by on-call rotary cutter. We would need to inform and consult our rotary cutter for bronchoscopy did the bronchoscopy in the morning. Patient is not septic at this time and is saturating well on room air. Hypertension. Monitor blood pressure and resume home medication accordingly. Hyperlipidemia. Resume home statin. DVT prophylaxis heparin subcu. CODE STATUS full code. Disposition likely home in 2 to 3 days. - As the provider of this telehealth evaluation, requested by the patient's evaluating physician, I attest that I introduced myself to the patient, provided my credentials and determined that telemedicine via a real-time, 2 way interactive audio and video platform is an appropriate and effective means of providing this service. - I reviewed the patient's chart and had a discussion with the member of the patient's treatment team. - The patient and I mutually agreed with continuation of this evaluation via telemedicine. The patient consented for the telemedicine evaluation. - This virtual encounter was taken place from [place]. The encounter was approximately 35 minutes. The nurse was present during the entire time of the encounter and was able to move the stethoscope in appropriate directions. The patient was evaluated at [facility]. Time-Based Coding :: [TOTAL MINUTES] spent with patient and on the chart (including review of chart, obtaining history, exam, reviewing outside data, placing orders, documenting exam and treatment plan, and counseling patient) on [DATE].
[2025-01-22] MEDS: LACTATED RINGERS 1,000 ML 75 ML IV (05:44)
[2025-01-22 06:08] LABS: Add Manual Diff / Slide Review NO; Basophils Absolute Auto 0 /uL (0-100); Basophils Percent Auto 0.2 % (0-2); Eosinophils Absolute Auto 0 /uL (0-450); Eosinophils Percent Auto 0.2 % (2-4); Hematocrit 35.5 % (41-53); Hemoglobin 12.2 g/dL (13.5-17.5); Lymphocytes Absolute Auto 500 /uL (1100-4500); Lymphocytes Percent Auto 5.6 % (25-40); Mean Corpuscular HGB Conc 34.5 % (30-36); Mean Corpuscular Hemoglobin 28.9 PG (26-34); Mean Corpuscular Volume 83.9 fL (80-100); Monocytes Absolute Auto 500 /uL (0-900); Monocytes Percent Auto 6.3 % (3-14); Neutrophils Absolute Auto 7500 /uL (1500-7000); Neutrophils Percent Auto 87.7 % (50-75); Platelet Count 140 X10^3/uL (150-400); Red Blood Cell Count 4.23 X10^6/uL (4.5-5.9); Red Cell Distribution Width 14.5 % (11.6-14.8); White Blood Cell Count 8.5 X10^3/uL (4.5-11.0)
[2025-01-22] MEDS: PIPERACILLIN/TAZO 3.375 GM in SODIUM CHLORIDE 0.9% 100 ML IV ×2 (06:14→13:55)
[2025-01-22 06:22] LABS: BUN Creatinine Ratio 14.5 (6-22); Blood Urea Nitrogen 18 mg/dL (9-20); Calcium 7.9 mg/dL (8.4-10.2); Carbon Dioxide 26 mmol/L (22-32); Chloride 103 mmol/L (98-107); Estimated Glomerular Filt Rate > 60 mL/min (>60); Glucose 109 mg/dL (70-99); HEMOLYSIS < 15 (0-50); Potassium 2.8 mmol/L (3.4-5.1); Sodium 135 mmol/L (137-145)
--- NOTE | 2025-01-22 07:50 | P.HP_ITS ---
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 Per the patient report, the patient has a known history of MAC and mycobacterium abscessus infections about 3 years ago. About 1-1/2-year ago the patient completed his triple antibiotic treatment for this infection. However recently the patient's company miner blasting recommended that he have a bronchoscopy as the patient cannot produce sputum for testing to see if the patient had recurrent infection. The patient going to have his bronchoscopy today and a few hours after getting home, the patient started to have a fever. The patient also reports of 2 episodes of nonbloody nonbilious vomiting. The patient is unclear if he has aspirated or not. Otherwise the patient denies any chest pain, shortness of breath, diarrhea or syncope. In the emergency room, the patient was hemodynamically stable though the patient did have a fever of 102. Lab shows no sign of infection with normal WBC. X-ray also shows no acute findings. Our ER physician did contact the company miner blasting on-call who recommended to start patient on Zosyn at this time. And admit the patient to monitor. S: He is doing better today. He is not on oxygen. He had bronchoscopy to screen for his MAC burden yesterday. He denies recent sputum production, dyspnea, or weight loss. He developed a fever after this. He feels better today. [facility] Medical History Myocardial infarction Mcfarland's esophagus Sore throat Insomnia Hx of colonic polyps Incomplete emptying of bladder History of urinary retention Episodic weakness Strain of adductor muscle of thigh COPD (chronic obstructive pulmonary disease) Nontuberculous mycobacterial disease of lung Benign prostatic hyperplasia with lower urinary tract symptoms Acute pain of right knee Sleep apnea Diastolic heart failure Right inguinal hernia Secondhand smoke exposure Asymptomatic microscopic hematuria Right groin pain Vertigo Bladder pain Poor short term memory Thymoma Cyst of right kidney Cyst of left kidney Hydronephrosis Muscular deconditioning Change in consistency of stool Bronchiectasis Exposure to hepatitis A BROWN (dyspnea on exertion) Mycobacterial disease, pulmonary Acute pain of left shoulder Anxiety about health Resistant hypertension GERD (gastroesophageal reflux disease) Medication side effects present Stress due to illness of family member Somatic dysfunction of lower extremity Segmental and somatic dysfunction of rib cage Other stressful life events affecting family and household Lumbar region somatic dysfunction Segmental and somatic dysfunction of abdomen and other regions Sacral region somatic dysfunction Pelvic somatic dysfunction Chronic thoracic back pain Scoliosis of thoracic spine Sleep disorder Cerumen impaction Fecal incontinence BRBPR (bright red blood per rectum) Cranial somatic dysfunction Thoracic region somatic dysfunction Cervical somatic dysfunction Stiff neck Onychomycosis Segmental and somatic dysfunction of upper extremity Actinic keratoses Aortic aneurysm, abdominal Renal cyst Gallbladder polyp Hiatal hernia Chronic right shoulder pain Chronic pain of left ankle Adverse reaction to antibiotic Frequent loose stools Abdominal bloating Constipation Skin rash Hypothyroidism Shoulder pain Scoliosis Gout Elevated PSA Benign prostatic hyperplasia Pancreatitis Gluten enteropathy Low testosterone Cardiac arrhythmia Aortic regurgitation (1994) Surgical History History of bronchoscopy (02/06/22) Hx of bilateral inguinal hernia repair (11/10/24) S/P urological surgery (03/18/24) Hx of right inguinal hernia repair (07/17/23) Hx of heart artery stent (07/11/21) Hx of thymectomy (02/07/23) Anesthesia Ankle fracture (1978) History of pancreatic surgery (1994) History of eyelid surgery (2016) Family History Brother Age: 68 No problems noted. Father Heart disease Mental health problem Smoker Alcoholic Brother No problems noted. Grandfather Cancer Grandmother No problems noted. Mother No problems noted. Grandfather Fall from roof Grandmother Cancer Sister Overweight Sister No problems noted. Social History marital status: number of children: 0 household members: significant other lives independently: Yes caregiver/support person: No housing: house Smoking Status: Never smoker second hand exposure: No alcohol intake: former substance use type: does not use caffeine: Yes Type(s) of exercise: weight lifting and other frequency: daily duration: > 90 minutes/day Meds Home Medications and Allergies Home Medications Medication Instructions Recorded Confirmed Type nitroglycerin 0.4 mg sublingual 0.4 mg sublingual Q5M PRN Chest 07/25/21 01/22/25 History tablet Pain amlodipine 10 mg tablet 10 mg PO QAM #90 tabs 08/08/21 01/22/25 Rx potassium chloride 10 mEq 20 meq PO BID 10/21/21 01/22/25 History tablet,extended release carvedilol 3.125 mg tablet 3.125 mg PO BID 01/13/22 01/22/25 History losartan 50 mg tablet 50 mg PO BID 01/13/22 01/22/25 History rosuvastatin 10 mg tablet 20 mg PO DAILY 01/13/22 01/22/25 History indomethacin 50 mg capsule See Rx Instructions .Route 01/28/24 01/22/25 Rx .COMPLEX #30 caps zolpidem 10 mg tablet 10 mg PO BEDTIME PRN insomnia #30 09/18/24 01/22/25 Rx tabs azelastine 137 mcg (0.1 %) nasal 2 spray intranasal BID PRN 01/16/25 01/22/25 History spray allergies clopidogrel 75 mg tablet 75 mg PO DAILY Stent placement 01/16/25 01/22/25 History sodium chloride 7 % for 4 ml inhalation BID 01/16/25 01/22/25 History nebulization Allergies Allergy/AdvReac Type Severity Reaction Status Date / Time tolterodine Allergy Severe Inability Verified 01/21/25 13:44 to void. latex Allergy Rash Verified 01/21/25 13:44 adhesive tape AdvReac ITCHING Verified 01/21/25 13:44 metoprolol AdvReac Swelling. Verified 01/21/25 13:44 peanut-containing drug AdvReac Red face. Uncoded 01/16/25 14:22 products Review of Systems Review of Systems Narrative: All else reviewed and otherwise unremarkable except as noted in the history and physical. Exam Vital Signs (past 8 hours): - 01/22/25 00:00 01/22/25 00:16 01/22/25 00:16 Temperature Pulse Rate 79 80 Respiratory Rate 32 H 32 H Blood Pressure 129/72 Pulse Oximetry 94 94 Oxygen Delivery Method Oxygen Flow Rate 01/22/25 00:30 01/22/25 00:30 01/22/25 01:00 Temperature Pulse Rate 79 74 Respiratory Rate 32 H 35 H Blood Pressure 134/80 Pulse Oximetry 94 94 Oxygen Delivery Method Nasal Cannula Nasal Cannula Oxygen Flow Rate 1.5 1.5 01/22/25 01:00 01/22/25 01:13 01/22/25 01:29 Temperature 100.2 F H 100.4 F H Pulse Rate Respiratory Rate Blood Pressure 127/69 Pulse Oximetry Oxygen Delivery Method Oxygen Flow Rate 01/22/25 01:30 01/22/25 01:30 01/22/25 01:30 Temperature 100.4 F H Pulse Rate 73 Respiratory Rate 30 H Blood Pressure 122/60 Pulse Oximetry 94 Oxygen Delivery Method Oxygen Flow Rate 01/22/25 02:00 01/22/25 02:00 01/22/25 02:30 Temperature Pulse Rate 71 64 Respiratory Rate 29 H 28 H Blood Pressure 124/64 Pulse Oximetry 94 94 Oxygen Delivery Method Nasal Cannula Oxygen Flow Rate 1.5 01/22/25 02:30 01/22/25 02:41 01/22/25 03:00 Temperature 99.1 F Pulse Rate 61 Respiratory Rate 28 H Blood Pressure 119/59 L Pulse Oximetry 95 Oxygen Delivery Method Oxygen Flow Rate 01/22/25 03:00 01/22/25 03:30 01/22/25 03:30 Temperature Pulse Rate 57 L Respiratory Rate 27 H Blood Pressure 116/57 L 119/56 L Pulse Oximetry 95 Oxygen Delivery Method Oxygen Flow Rate 01/22/25 04:00 01/22/25 04:00 01/22/25 04:30 Temperature 97.1 F L Pulse Rate 51 L 53 L Respiratory Rate 25 H 18 Blood Pressure 113/55 L 106/56 L Pulse Oximetry 96 95 Oxygen Delivery Method Nasal Cannula Oxygen Flow Rate 1.5 1 01/22/25 06:28 Temperature Pulse Rate Respiratory Rate Blood Pressure Pulse Oximetry Oxygen Delivery Method Nasal Cannula Oxygen Flow Rate Oxygen Delivery Method Nasal Cannula Oxygen Flow Rate 1 Narrative Exam Narrative: NAD, alert and oriented, fluent speech, calm. Normocephalic skull, EOMI, anicteric sclera, symmetric pupils. Oropharynx unremarkable, no droop. Neck supple, midline trachea, no adenopathy. Lungs clear, normal rate and effort. Heart regular, no murmur gallop or rub. Abdomen is soft, non distended and non tender. Extremities are free of edema. Skin is free of rash or lesions. Joints are not swollen or deformed. Judgment appears to be normal. Objective Labs 01/22/25 05:54 01/22/25 05:54 Labs: Laboratory Results - last 24 hr 01/21/25 01/21/25 01/22/25 19:53 21:23 05:54 WBC 8.2 8.5 RBC 4.72 4.23 L Hgb 13.6 12.2 L Hct 40.0 L 35.5 L MCV 84.8 83.9 MCH 28.7 28.9 MCHC 33.8 34.5 RDW 14.3 14.5 Plt Count 160 140 L Neut % (Auto) 88.4 H 87.7 H Lymph % (Auto) 5.1 L 5.6 L Dare % (Auto) 4.5 6.3 Eos % (Auto) 1.6 L 0.2 L Baso % (Auto) 0.4 0.2 Neut # (Auto) 7300 H 7500 H Lymph # (Auto) 400 L 500 L Dare # (Auto) 400 500 Eos # (Auto) 100 0 Baso # (Auto) 0 0 PT 11.8 INR 1.0 APTT 27 Sodium 134 L 135 L Potassium 3.4 2.8 L Chloride 102 103 Carbon Dioxide 23 26 BUN 17 18 Creatinine 1.04 1.24 Estimated GFR > 60 > 60 BUN/Creatinine Ratio 16.3 14.5 Glucose 113 H 109 H Lactate 1.5 Calcium 8.8 7.9 L Total Bilirubin 0.9 AST 38 ALT 27 Alkaline Phosphatase 82 Total Protein 6.6 Albumin 4.1 Globulin 2.5 Albumin/Globulin Ratio 1.6 Lipase 28 Procalcitonin 0.054 Chlamy pneumoniae PCR Not detected Adenovirus (PCR) Not detected B. pertussis DNA (PCR) Not detected B.parapertussis DNA PCR Not detected Coronavirus OC43 (PCR) Not detected Coronavirus HKU1 (PCR) Not detected Coronavirus 229E (PCR) Not detected SARS-CoV-2 (PCR) Not detected Coronavirus NL63 (PCR) Not detected Human Metapneumovir PCR Not detected Influenza Type A (PCR) Not detected Influenza Type B (PCR) Not detected M. pneumoniae (PCR) Not detected Parainfluenza 1 (PCR) Not detected Parainfluenza 2 (PCR) Not detected Parainfluenza 3 (PCR) Not detected Parainfluenza 4 (PCR) Not detected RSV (PCR) Not detected Entero/Rhino (PCR) Not detected Assessment & Plan Assessment & Plan narrative: 1. Fever post bronchoscopy. Present on admission and improved. Admit the patient to medical telemetry as inpatient. Of note the patient does have a remote history of MAC and mycobacterium abscessus that were reported to be treated a year and a half ago. Will continue empiric Zosyn for now as recommended by on-call company miner blasting. We would need to inform and consult our company miner blasting for bronchoscopy did the bronchoscopy in the morning. Patient is not septic at this time and is saturating well on room air. 2. Hypertension. Present on admission and stable. Monitor blood pressure and resume home medication accordingly. 3. Hyperlipidemia. Present on admission and stable. PLAN: -continue antibiotics. -discuss with pulmonary. -likely home later today with PO antibiotics. DVT prophylaxis heparin subcu. CODE STATUS full code. Time-Based Coding :: 35 min spent with patient and on the chart (including review of chart, obtaining history, exam, reviewing outside data, placing orders, documenting exam and treatment plan, and counseling patient) on 01/22. Quality VTE Deep Vein Thrombosis/Pulmonary Embolism Present on Admission: No MIPS - Meds 'Current medications' to include all prescriptions, [id number] products, herbals, cannabis/cannabidiol products, and vitamin/mineral/dietary (nutritional) supplements. I have utilized all available resources to obtain, update, or review the patient?s current medications. [If Yes, STOP here]: Yes
[2025-01-22] MEDS: POTASSIUM CHLORIDE 20 MEQ TAB 40 MEQ PO (07:57)
[2025-01-22] MEDS: CLOPIDOGREL 75 MG TABLET PO (10:41)
[2025-01-22] MEDS: SODIUM CHLORIDE 0.9% FLUSH 10 ML IV (10:41)
[2025-01-22] MEDS: HEPARIN 5,000 UNIT/ML VIAL 5000 UNIT SUBCUT (10:41)
--- NOTE | 2025-01-22 11:26 | DIET.CONS ---
Dietary Consultation Note Admission Date: 01/22/2025 02:36 Assessment: 74 y M admitted for fever and vomiting s/p surgery. Dietitian consulted for weight loss. Met with pt a spouse at bedside who report pt has been gradually losing weight for 3-4 years d/t having heart attack, MAC, decreased appetite, surgery in November. Diet recall is 3 meals per day, homecooked with animal protein or beans or tofu at each meal and a protein smoothie (vegs, fruit, avocado, 13 g protein powder scoop) that he splits with . Reports he's been doing around 75% of his usual intake of these meals since Nov this year. Ht: 172.72 cm Wt: 64.5 kg BMI: 21.6 UBW: 69.059 kg on 10/28/24 (-6.5% weight loss in 3 months, non-severe), pt reports weight of 146 lb (66.36 kg) in November. 71.214 kg on 01/28/24 (-9% weight loss in 1 yr, non-severe) Last BM: 01/21/25 (01/22/25 05:01) MNA: 9 Allen Score: 23 Diet: 01/22/25 Breakfast Heart Healthy Diet Diet Modifications: Nutrition Percent Meal Consumed 80 01/22/25 09:00 Labs: RBC 4.23 X10^6/uL (4.5-5.9) L 01/22/25 05:54 Hgb 12.2 g/dL (13.5-17.5) L 01/22/25 05:54 Hct 35.5 % (41-53) L 01/22/25 05:54 Creatinine 1.24 mg/dL (0.66-1.25) 01/22/25 05:54 Lactate 1.5 mmol/L (0.7-2.1) 01/21/25 19:53 Nutrition Diagnosis: Unintentional weight loss r/t decreased appetite aeb 6.5% weight loss in 3 months (non-severe) Interventions: Discussed ways to increase calorie and protein including small freq meals, whole smoothie over half, and added healthy fats. Provided handouts on increasing kcals and protein from [employer] [facility]. If pt is not d/c today, will add protein supplement to breakfast tray EER: 8975-9903 kcals (25-30 kcals/kg) 65 g protein (1g/kg per age) Monitoring/Evaluations: po intakes Electronically Signed by: Kimberly Catherine 01/22/25 11:26 Clinical Dietitian [address] [id number]
--- NOTE | 2025-01-22 13:39 | PM.DS.1 ---
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 Per the patient report, the patient has a known history of MAC and mycobacterium abscessus infections about 3 years ago. About 1-1/2-year ago the patient completed his triple antibiotic treatment for this infection. However recently the patient's laundry folder recommended that he have a bronchoscopy as the patient cannot produce sputum for testing to see if the patient had recurrent infection. The patient going to have his bronchoscopy today and a few hours after getting home, the patient started to have a fever. The patient also reports of 2 episodes of nonbloody nonbilious vomiting. The patient is unclear if he has aspirated or not. Otherwise the patient denies any chest pain, shortness of breath, diarrhea or syncope. In the emergency room, the patient was hemodynamically stable though the patient did have a fever of 102. Lab shows no sign of infection with normal WBC. X-ray also shows no acute findings. Our ER physician did contact the laundry folder on-call who recommended to start patient on Zosyn at this time. And admit the patient to monitor. S: He is doing better today. He is not on oxygen. He had bronchoscopy to screen for his MAC burden yesterday. He denies recent sputum production, dyspnea, or weight loss. He developed a fever after this. He feels better today. Discharge Providers Provider Date of admission: 01/22/25 02:36 Discharge Date: 01/22/25 Primary care physician: Emanuel Amador DO Consults: 01/22/25 05:20 Consult to Dietitian, Adult Routine Comment: Reason For Exam: Weight loss >6lbs in past 2 months Discharge provider: Vinny Terrazas MD Summary Hospital Course Discharge Diagnosis: 1. Fever post-bronchoscopy. Present on admission and improved. 2. Hypertension. Present on admission and stable. Monitor blood pressure and resume home medication accordingly. 3. Hyperlipidemia. Present on admission and stable. 4. H/O pulmonary MAC. Stable. 5. Hypokalemia, new and replaced. Hospital Course: He was admitted with a post bronchoscopy fever and had a clear chest x-ray. He was treated with empiric IV antibiotics overnight and defervesced. On the day of discharge she was discussed with the laundry folder who performed bronchoscopy and imaging was reviewed. Recommendations were for home with Augmentin b.i.d. for 5 days. The patient was comfortable with this plan and will return if he was increase fevers, cough, or shortness a breath. The potassium was low on the day of discharge but was replaced prior to discharge. [N], the patient has documentation of a left ventricle ejection fracture less than or equal to 40%, or moderately or severely reduced left ventricle systolic function. [N], the patient has a history of heart transplant or left ventricular assist device (LVAD). [N], the patient was prescribed an MISAEL inhibitor at discharge or is already being taken. The patient was not prescribed an MISAEL-inhibitor because of the following exception: NA [N], the patient was prescribed a beta laura at discharge. The patient was not prescribed a beta laura at discharge because of the following exception: NA Status at Discharge Cognitive/behavioral status at discharge: oriented Functional status at discharge: independent ambulation Overall status at discharge: patient is back to baseline Time Spent with Patient Time spent: Greater than 30 minutes Exam Vital Signs (past 8 hours): - 01/22/25 06:28 01/22/25 08:00 01/22/25 08:09 Temperature 97.3 F L Pulse Rate 49 L Respiratory Rate 18 Blood Pressure 110/54 L Pulse Oximetry 97 Oxygen Delivery Method Nasal Cannula Room Air Oxygen Flow Rate 0 01/22/25 10:42 01/22/25 12:00 Temperature 97.7 F Pulse Rate 49 L 57 L Respiratory Rate 16 Blood Pressure 110/59 L 116/64 Pulse Oximetry 94 Oxygen Delivery Method Oxygen Flow Rate 0 Oxygen Delivery Method Room Air Oxygen Flow Rate 0 Narrative Exam Narrative: NAD, alert and oriented. Fluent speech. Lungs are clear, normal rate and effort. Heart is regular, no murmur gallop or rub. Abdomen is soft, non distended. Extremities are free of edema. Objective ECG Impression: Intervals [place] Rate: 78 P: [place]: QRS: -14 QRSD: 88 T: 80 QT: 376 QTc: 428 Interpretive Statements Probable sinus rhythm, baseline artifact makes this difficult to be sure Nonspecific ST and T wave abnormality Imaging Chest x-ray: My impression: No acute infiltrates by my read. Radiologist's impression: No acute cardiopulmonary abnormality is seen. No pneumothorax. Stable right middle lung and lower lung zone opacities. Labs 01/22/25 05:54 01/22/25 05:54 Labs: Laboratory Results - last 24 hr 01/21/25 01/21/25 01/22/25 19:53 21:23 05:54 WBC 8.2 8.5 RBC 4.72 4.23 L Hgb 13.6 12.2 L Hct 40.0 L 35.5 L MCV 84.8 83.9 MCH 28.7 28.9 MCHC 33.8 34.5 RDW 14.3 14.5 Plt Count 160 140 L Neut % (Auto) 88.4 H 87.7 H Lymph % (Auto) 5.1 L 5.6 L [place] % (Auto) 4.5 6.3 Eos % (Auto) 1.6 L 0.2 L Baso % (Auto) 0.4 0.2 Neut # (Auto) 7300 H 7500 H Lymph # (Auto) 400 L 500 L [place] # (Auto) 400 500 Eos # (Auto) 100 0 Baso # (Auto) 0 0 PT 11.8 INR 1.0 APTT 27 Sodium 134 L 135 L Potassium 3.4 2.8 L Chloride 102 103 Carbon Dioxide 23 26 BUN 17 18 Creatinine 1.04 1.24 Estimated GFR > 60 > 60 BUN/Creatinine Ratio 16.3 14.5 Glucose 113 H 109 H Lactate 1.5 Calcium 8.8 7.9 L Total Bilirubin 0.9 AST 38 ALT 27 Alkaline Phosphatase 82 Total Protein 6.6 Albumin 4.1 Globulin 2.5 Albumin/Globulin Ratio 1.6 Lipase 28 Procalcitonin 0.054 Chlamy pneumoniae PCR Not detected Adenovirus (PCR) Not detected B. pertussis DNA (PCR) Not detected B.parapertussis DNA PCR Not detected Coronavirus OC43 (PCR) Not detected Coronavirus HKU1 (PCR) Not detected Coronavirus 229E (PCR) Not detected SARS-CoV-2 (PCR) Not detected Coronavirus NL63 (PCR) Not detected Human Metapneumovir PCR Not detected Influenza Type A (PCR) Not detected Influenza Type B (PCR) Not detected M. pneumoniae (PCR) Not detected Parainfluenza 1 (PCR) Not detected Parainfluenza 2 (PCR) Not detected Parainfluenza 3 (PCR) Not detected Parainfluenza 4 (PCR) Not detected RSV (PCR) Not detected Entero/Rhino (PCR) Not detected [facility] Medical History Myocardial infarction Mcfarland's esophagus Sore throat Insomnia Hx of colonic polyps Incomplete emptying of bladder History of urinary retention Episodic weakness Strain of adductor muscle of thigh COPD (chronic obstructive pulmonary disease) Nontuberculous mycobacterial disease of lung Benign prostatic hyperplasia with lower urinary tract symptoms Acute pain of right knee Sleep apnea Diastolic heart failure Right inguinal hernia Secondhand smoke exposure Asymptomatic microscopic hematuria Right groin pain Vertigo Bladder pain Poor short term memory Thymoma Cyst of right kidney Cyst of left kidney Hydronephrosis Muscular deconditioning Change in consistency of stool Bronchiectasis Exposure to hepatitis A BROWN (dyspnea on exertion) Mycobacterial disease, pulmonary Acute pain of left shoulder Anxiety about health Resistant hypertension GERD (gastroesophageal reflux disease) Medication side effects present Stress due to illness of family member Somatic dysfunction of lower extremity Segmental and somatic dysfunction of rib cage Other stressful life events affecting family and household Lumbar region somatic dysfunction Segmental and somatic dysfunction of abdomen and other regions Sacral region somatic dysfunction Pelvic somatic dysfunction Chronic thoracic back pain Scoliosis of thoracic spine Sleep disorder Cerumen impaction Fecal incontinence BRBPR (bright red blood per rectum) Cranial somatic dysfunction Thoracic region somatic dysfunction Cervical somatic dysfunction Stiff neck Onychomycosis Segmental and somatic dysfunction of upper extremity Actinic keratoses Aortic aneurysm, abdominal Renal cyst Gallbladder polyp Hiatal hernia Chronic right shoulder pain Chronic pain of left ankle Adverse reaction to antibiotic Frequent loose stools Abdominal bloating Constipation Skin rash Hypothyroidism Shoulder pain Scoliosis Gout Elevated PSA Benign prostatic hyperplasia Pancreatitis Gluten enteropathy Low testosterone Cardiac arrhythmia Aortic regurgitation (1994) Surgical History History of bronchoscopy (02/06/22) Hx of bilateral inguinal hernia repair (11/10/24) S/P urological surgery (03/18/24) Hx of right inguinal hernia repair (07/17/23) Hx of heart artery stent (07/11/21) Hx of thymectomy (02/07/23) Anesthesia Ankle fracture (1978) History of pancreatic surgery (1994) History of eyelid surgery (2016) Family History Brother Age: 68 No problems noted. Father Heart disease Mental health problem Smoker Alcoholic Brother No problems noted. Grandfather Cancer Grandmother No problems noted. Mother No problems noted. Grandfather Fall from roof Grandmother Cancer Sister Overweight Sister No problems noted. Social History marital status: number of children: 0 household members: significant other lives independently: Yes caregiver/support person: No housing: house Smoking Status: Never smoker second hand exposure: No alcohol intake: former substance use type: does not use caffeine: Yes Type(s) of exercise: weight lifting and other frequency: daily duration: > 90 minutes/day Discharge Assessment & Plan Assessment and Plan Assessment: 1. Fever post-bronchoscopy. Present on admission and improved. 2. Hypertension. Present on admission and stable. Monitor blood pressure and resume home medication accordingly. 3. Hyperlipidemia. Present on admission and stable. 4. H/O pulmonary MAC. Stable. 5. Hypokalemia, new and replaced. Plan of Treatment: Discharged on Augmentin BID for 5 days. He will notify He was primary laundry folder by portal. I did speak with Dr. Lozada regarding recommendations. Discharge Plan Discharge Plan Patient Disposition: Home Provider Discharge Comment: Stable for discharge home, 5 days of Augmentin was recommended by Pulmonary (Dr. Lozada). Discharge orders & Medications Prescriptions: New amoxicillin-pot clavulanate 875-125 mg tablet 1 tab PO BID Qty: 10 0RF Continued nitroglycerin 0.4 mg tablet, sublingual 0.4 mg sublingual Q5M PRN (Reason: Chest Pain) Rx Instructions: do not exceed 3 doses per episode amlodipine 10 mg tablet 10 mg PO QAM Qty: 90 1RF indomethacin 50 mg capsule See Rx Instructions .ROUTE .COMPLEX Qty: 30 5RF Dose Instruction: TAKE ONE CAPSULE BY MOUTH THREE TIMES DAILY Patient Comments: Pt states only takes twice a year whenever they haven't drank enough water or ingests something that exacerbates symptoms. Rx Instructions: TAKE ONE CAPSULE BY MOUTH THREE TIMES DAILY potassium chloride 10 mEq tablet extended release 20 meq PO BID rosuvastatin 10 mg tablet 20 mg PO DAILY carvedilol 3.125 mg tablet 3.125 mg PO BID zolpidem 10 mg tablet 10 mg PO BEDTIME PRN (Reason: insomnia) Qty: 30 5RF losartan 50 mg tablet 50 mg PO BID clopidogrel 75 mg tablet 75 mg PO DAILY Patient Comments: Pt has not been taking but can start taking again per surgeon orders azelastine 137 mcg (0.1 %) spray,non-aerosol 2 spray intranasal BID PRN (Reason: allergies) sodium chloride 7 % solution for nebulization 4 ml inhalation BID Follow up/Referrals: Emanuel Amador DO [Primary Care Provider] - Activity Restrictions/Additional Instructions: Return with new or worsening. Follow up with PCP and subspecialists this week. Discharge Health Status Multidrug resistant organism: No MDRO Diet/Activity/Treatments Diet: Regular Visit Report/Discharge Packet Instructions: Aspiration Pneumonia, DI for Fever (Symptom) -- Adult Stand Alone Forms: Patient Portal/API, Patient Portal/API/Survey Discharge Data Primary Care Provider: Emanuel Amador Quality VTE Deep Vein Thrombosis/Pulmonary Embolism Present on Admission: No
[2025-01-22] MEDS: POTASSIUM CHLORIDE 20 MEQ TAB PO (13:49)
--- NOTE | 2025-01-22 14:45 | CM.DANOTE ---
Initial DCP Assessment Note Pt is a 74 yo male, resident of [place], presents with fever after his outpatient bronchoscopy yesterday. PCP: Emanuel Amador Payer: [facility]/[employer] Reviewed chart, pt discussed in multidisciplinary rounds this morning. Patient has been discharged home today. Met w/patient who reports he lives independently with SO. Patient denies needs from this CM team, appreciative for the visit. Briefly discussed the incident mentioned in nursing notes- mouse found in patient and SO's water bottle. Patient explains he and his SO knew there was a mouse in one of their vehicles. SO later admitted she left the water bottle open in the car and thus it's assumed the mouse crawled in. Patient reports no pest problem inside his home and that it's a modern home and sealed up tight. No barriers identified at this time to patient's safe discharge home w/SO to assist as needed; close outpatient f/u recommended. ORTEGA Fonseca Discharge Planning/Care Management CM Discharge Assessment Start: 01/22/25 14:40 Freq: Status: Active Protocol: Document 01/22/25 14:41 DEREK (Rec: 01/22/25 14:45 DEREK [id number]) Discharge Planning Assessment Assigned Cushion Sewer ORTEGA Dill DPOA/Assigned Designee Name Whit Blood - life partner Contact Information [phone] Advance Directives? Yes Advance Directives on File Yes History Provided By Patient,Medical Record Has Patient been admitted in last 30 No days? Comment Patient had a bronchoscopy yesterday, outpatient procedure and developed fever shortly after. Prior Living Arrangements House Household Members significant other Type of transporation used prior to Drives own vehicle admit Independent with ADL's Yes Is patient alert and oriented? Yes Caregiver for Another No Comment Home Barriers to Discharge No Discharge Plan Home Transportation Arrangement SO Referrals Initiated None needed
== END 2025-01-22 16:30 | disposition home or self-care (01) | DRG 864 ==
LOC: ED 01-22 02:35 → AC 01-22 02:38
PROVIDERS: Admitting Provider Internal Medicine; Emergency Provider Family Medicine; Family Provider Family Medicine; PCP Family Medicine; Referring Provider Family Medicine; Visit Provider Internal Medicine
DX: R50.82 Postprocedural fever (principal); I10 Essential (primary) hypertension; E78.5 Hyperlipidemia, unspecified; E87.6 Hypokalemia; Z86.19 Personal history of other infectious and parasitic diseases; I25.2 Old myocardial infarction; J44.9 Chronic obstructive pulmonary disease, unspecified; Z77.22 Contact with and (suspected) exposure to environmental tobacco smoke (acute) (chronic); Z82.49 Family history of ischemic heart disease and other diseases of the circulatory system; Z80.9 Family history of malignant neoplasm, unspecified; Z79.02 Long term (current) use of antithrombotics/antiplatelets; Z88.8 Allergy status to other drugs, medicaments and biological substances; J47.9 Bronchiectasis, uncomplicated
CPT/HCPCS: 36415; 71045; 80048; 80053; 81003; 83605; 83690; 84145; 85025; 85610; 85730; 87040; 87070; 87116; 87205; 87206; 87633; 93005; 93010; 96361; 96365; 96366; 96367; 99285; J0696; J1644; J2543; J2704

== ENCOUNTER → 2025-02-27 07:09 | Outpatient (CLI) | payer MEDICARE, OTHER, SELFPAY ==
[2025-01-22 05:01] VITALS: BMI 21.6
[2025-02-27 09:20] LABS: Free T3, Triiodothyronine Free 6.55 pg/mL (2.77-5.27); Free T4, Direct Thyroxine 1.69 ng/dL (0.78-2.19)
[2025-02-27 09:34] LABS: Ferritin 60 ng/mL (18-464); Thyroid Stimulating Hormone 2.78 uIU/mL (0.47-4.68)
[2025-02-28 07:37] LABS: Thyroid Peroxidase Antibodies 12 IU/mL (0-34)
== END ==
PROVIDERS: Family Provider Family Medicine; PCP Family Medicine; Referring Provider Family Medicine; Visit Provider Family Medicine
DX: E03.9 Hypothyroidism, unspecified (principal)
CPT/HCPCS: 36415; 82728; 84439; 84443; 84481; 86376

== ENCOUNTER → 2025-08-06 10:09 | Outpatient (CLI) | payer MEDICARE, OTHER, SELFPAY ==
[2025-01-22 05:01] VITALS: BMI 21.6
== END ==
PROVIDERS: PCP Family Medicine; Referring Provider Internal Medicine Critical Care Medicine; Visit Provider Internal Medicine Critical Care Medicine
DX: J47.9 Bronchiectasis, uncomplicated (principal)
CPT/HCPCS: 87116; 87206

== ENCOUNTER → 2025-08-26 13:14 | Outpatient (CLI) | payer MEDICARE, OTHER, SELFPAY ==
[2025-01-22 05:01] VITALS: BMI 21.6
[2025-08-26 15:19] LABS: Prostate Specific Antigen 3.81 ng/mL (0.10-4.00)
== END ==
PROVIDERS: PCP Family Medicine; Referring Provider Urology; Visit Provider Urology
DX: R97.20 Elevated prostate specific antigen [PSA] (principal)
CPT/HCPCS: 36415; 84153